=== PATIENT | male | born 1975 | race Caucasian/White ===

== ENCOUNTER → 2019-04-21 05:48 | Outpatient (CLI) | payer OTHER, SELFPAY ==
[2013-09-08 10:16] VITALS: BMI 32.1
[2019-04-21 07:58] LABS: Anion Gap 10 (5-15); BUN 19 mg/dL (7-18); BUN/Creat Ratio 16.4 RATIO (10-20); Calcium,Total 8.9 mg/dL (8.5-10.1); Chloride 103 mmol/L (98-107); Cholesterol 227 mg/dL (200); Creatinine, Serum 1.16 mg/dL (0.70-1.30); EST Glomerular Filtration Rate 73 mL/min (>60); Est Glom Filt Rate - Afr Amer 88 mL/min (>60); Glucose 113 mg/dL (74-106); High Density Lipoprotein 38 mg/dL; Potassium 4.3 mmol/L (3.5-5.1); Sodium Level 141 mmol/L (136-145); Thyroid Stim Hormone (TSH) 1.68 uIU/mL (0.358-3.74); Triglycerides 293 mg/dL; Very Low Density Lipoprotein 59 mg/dL (5-40)
[2019-04-21 08:14] LABS: Vitamin D,25 Hydroxy 15.9 ng/mL (29.95-100.01)
== END ==
PROVIDERS: Family Provider Family Medicine; PCP Family Medicine; Referring Provider Family Medicine; Visit Provider Family Medicine
DX: Z00.00 Encounter for general adult medical examination without abnormal findings (principal); I10 Essential (primary) hypertension; R53.83 Other fatigue
CPT/HCPCS: 36415; 80048; 80061; 82306; 84403; 84443

== ENCOUNTER → 2019-05-19 05:39 | Outpatient (CLI) | payer OTHER, SELFPAY ==
[2013-09-08 10:16] VITALS: BMI 32.1
[2019-05-19 07:38] LABS: Cholesterol 113 mg/dL (200); Glucose 104 mg/dL (74-106); High Density Lipoprotein 32 mg/dL; Triglycerides 142 mg/dL; Very Low Density Lipoprotein 28 mg/dL (5-40)
== END ==
PROVIDERS: Family Provider Family Medicine; PCP Family Medicine; Referring Provider Family Medicine; Visit Provider Family Medicine
DX: I10 Essential (primary) hypertension (principal); E29.1 Testicular hypofunction; R73.9 Hyperglycemia, unspecified
CPT/HCPCS: 36415; 80061; 82947; 84403

== ENCOUNTER → 2019-07-24 16:52 | Outpatient (CLI) | payer OTHER, SELFPAY ==
[2013-09-08 10:16] VITALS: BMI 32.1
== END ==
PROVIDERS: Family Provider Family Medicine; PCP Family Medicine; Referring Provider Family Medicine; Visit Provider Family Medicine
DX: E29.1 Testicular hypofunction (principal)
CPT/HCPCS: 36415; 84403

== ENCOUNTER → 2019-12-09 16:00 | Outpatient (CLI) | payer OTHER, SELFPAY ==
[2013-09-08 10:16] VITALS: BMI 32.1
[2019-12-13 09:36] LABS: Testosterone, Free 2.99 ng/dL (5.00-21.00)
[2019-12-14 11:38] LABS: Testosterone, % Free 2.15 % (1.50-4.20); Testosterone, Total 139 ng/dL (264-916)
== END ==
PROVIDERS: PCP Family Medicine; Referring Provider Family Medicine; Visit Provider Family Medicine
DX: E29.1 Testicular hypofunction (principal)
CPT/HCPCS: 36415; 84402; 84403

== ENCOUNTER → 2020-01-06 16:00 | Outpatient (CLI) | payer OTHER, SELFPAY ==
[2013-09-08 10:16] VITALS: BMI 32.1
== END ==
PROVIDERS: PCP Family Medicine; Referring Provider Family Medicine; Visit Provider Family Medicine
DX: E29.1 Testicular hypofunction (principal)
CPT/HCPCS: 36415; 84403

== ENCOUNTER → 2020-05-11 05:50 | Outpatient (CLI) | payer OTHER, SELFPAY ==
[2013-09-08 10:16] VITALS: BMI 32.1
[2020-05-11 08:27] LABS: Anion Gap 2 (5-15); BUN 28 mg/dL (7-18); BUN/Creat Ratio 25.9 RATIO (10-20); Calcium,Total 8.7 mg/dL (8.5-10.1); Chloride 103 mmol/L (98-107); Cholesterol 90 mg/dL (200); Creatinine, Serum 1.08 mg/dL (0.70-1.30); EST Glomerular Filtration Rate 79 mL/min (>60); Est Glom Filt Rate - Afr Amer 96 mL/min (>60); Glucose 97 mg/dL (74-106); High Density Lipoprotein 36 mg/dL; Potassium 4.7 mmol/L (3.5-5.1); Sodium Level 136 mmol/L (136-145); Triglycerides 63 mg/dL; Very Low Density Lipoprotein 13 mg/dL (5-40)
[2020-05-11 09:40] LABS: Vitamin D,25 Hydroxy 54.5 ng/mL
== END ==
PROVIDERS: PCP Family Medicine; Referring Provider Family Medicine; Visit Provider Family Medicine
DX: I10 Essential (primary) hypertension (principal); E78.5 Hyperlipidemia, unspecified; E55.9 Vitamin D deficiency, unspecified
CPT/HCPCS: 36415; 80048; 80061; 82306

== ENCOUNTER → 2020-05-12 15:48 | Outpatient (CLI) | payer OTHER, SELFPAY ==
[2013-09-08 10:16] VITALS: BMI 32.1
== END ==
PROVIDERS: PCP Family Medicine; Referring Provider Family Medicine; Visit Provider Family Medicine
DX: E29.1 Testicular hypofunction (principal)
CPT/HCPCS: 36415; 84403

== ENCOUNTER → 2020-08-08 16:36 | Outpatient (CLI) | payer OTHER, SELFPAY ==
[2013-09-08 10:16] VITALS: BMI 32.1
[2020-08-08 18:24] LABS: Absolute Neutrophil Count 4.8 X10^3/uL (2.0-7.7); Basophil# 0.01 X10^3/uL; Basophil% 0.1 % (0-1); Eosinophil# 0.03 X10^3/uL; Eosinophils% 0.4 % (0-5); Hematocrit 45.4 % (40-54); Hemoglobin 14.9 g/dL (13.0-16.5); Lymphocyte % 20.4 % (19-41); Mean Corp Hgb Conc 32.8 g/dL (32-36); Mean Corpuscular Hgb 31.7 pg (27.0-32.0); Mean Corpuscular Volume 96.6 fL (80-94); Mean Platelet Vol. 11.2 fl (6.2-12.0); Monocyte# 0.62 X10^3/uL; NRBC Flagged by Analyzer 0 % (0-5); Neutrophil # 4.78 X10^3/uL (2.7-7.7); Neutrophil % 69.8 % (47-70); Platelet Count 204 K/mm3 (150-450); RBC Distribution Width CV 12.1 % (11.6-14.6); RBC Distribution Width SD 43.4 fl (35.1-43.9); White Blood Count 6.9 K/mm3 (4.4-11.0)
[2020-08-08 19:08] LABS: PSA,Total - Annual Screen 0.34 ng/mL (0.00-4.00)
== END ==
PROVIDERS: PCP Family Medicine; Visit Provider Family Medicine
DX: E29.1 Testicular hypofunction (principal)
CPT/HCPCS: 36415; 84153; 84403; 85025; G0103

== ENCOUNTER → 2021-01-23 16:44 | Outpatient (CLI) | payer OTHER, SELFPAY ==
[2013-09-08 10:16] VITALS: BMI 32.1
[2021-01-23 18:01] LABS: Anion Gap 4 (5-15); BUN 19 mg/dL (7-18); BUN/Creat Ratio 15.6 RATIO (10-20); Calcium,Total 9.2 mg/dL (8.5-10.1); Chloride 102 mmol/L (98-107); Cholesterol 91 mg/dL (200); Creatinine, Serum 1.22 mg/dL (0.70-1.30); EST Glomerular Filtration Rate 68 mL/min (>60); Est Glom Filt Rate - Afr Amer 83 mL/min (>60); Glucose 71 mg/dL (74-106); High Density Lipoprotein 50 mg/dL; Potassium 4.1 mmol/L (3.5-5.1); Sodium Level 136 mmol/L (136-145); Triglycerides 41 mg/dL; Very Low Density Lipoprotein 8 mg/dL (5-40)
== END ==
PROVIDERS: PCP Family Medicine; Visit Provider Family Medicine
DX: I10 Essential (primary) hypertension (principal)
CPT/HCPCS: 36415; 80048; 80061

== ENCOUNTER → 2021-02-03 05:38 | Outpatient (CLI) | payer OTHER, SELFPAY ==
[2013-09-08 10:16] VITALS: BMI 32.1
== END ==
PROVIDERS: PCP Family Medicine; Referring Provider Family Medicine; Visit Provider Family Medicine
DX: E29.1 Testicular hypofunction (principal)
CPT/HCPCS: 36415; 84403

== ENCOUNTER → 2021-08-09 16:54 | Outpatient (CLI) | payer OTHER, SELFPAY ==
[2021-08-09 18:25] LABS: Anion Gap 9 (5-15); BUN 19 mg/dL (7-18); BUN/Creat Ratio 15.8 RATIO (10-20); Calcium,Total 9.4 mg/dL (8.5-10.1); Chloride 100 mmol/L (98-107); Cholesterol 80 mg/dL (200); EST Glomerular Filtration Rate 70 mL/min (>60); Est Glom Filt Rate - Afr Amer 84 mL/min (>60); Glucose 81 mg/dL (74-106); High Density Lipoprotein 44 mg/dL; Potassium 4.2 mmol/L (3.5-5.1); Sodium Level 136 mmol/L (136-145); Thyroid Stim Hormone (TSH) 0.94 uIU/mL (0.358-3.74); Triglycerides 63 mg/dL; Very Low Density Lipoprotein 13 mg/dL (5-40)
== END ==
PROVIDERS: PCP Family Medicine; Referring Provider Family Medicine; Visit Provider Family Medicine
DX: E78.5 Hyperlipidemia, unspecified (principal); E29.1 Testicular hypofunction; F41.9 Anxiety disorder, unspecified; I10 Essential (primary) hypertension
CPT/HCPCS: 36415; 80048; 80061; 84403; 84443

== ENCOUNTER 2022-01-10 15:43 | Outpatient (CLI) | payer OTHER, SELFPAY ==
[2022-01-10 18:50] LABS: Cholesterol 166 mg/dL (200); High Density Lipoprotein 44 mg/dL; Triglycerides 86 mg/dL; Very Low Density Lipoprotein 17 mg/dL (5-40)
== END 2022-01-10 23:59 | disposition home or self-care (01) ==
LOC: MFPLAB 15:49
PROVIDERS: PCP Family Medicine; Referring Provider Family Medicine; Visit Provider Family Medicine
DX: E78.5 Hyperlipidemia, unspecified (principal)
CPT/HCPCS: 36415; 80061; 84403

== ENCOUNTER → 2022-02-28 | Outpatient (CLI) | payer OTHER, SELFPAY ==
[2022-02-28 18:35] LABS: Anion Gap 6 (5-15); BUN 23 mg/dL (7-18); BUN/Creat Ratio 20.9 RATIO (10-20); Calcium,Total 8.7 mg/dL (8.5-10.1); Chloride 103 mmol/L (98-107); EST Glomerular Filtration Rate 77 mL/min (>60); Est Glom Filt Rate - Afr Amer 93 mL/min (>60); Glucose 82 mg/dL (74-106); Potassium 4.5 mmol/L (3.5-5.1); Sodium Level 139 mmol/L (136-145)
== END | disposition home or self-care (01) ==
LOC: MFPLAB 15:32
PROVIDERS: PCP Family Medicine; Referring Provider Family Medicine; Visit Provider Family Medicine
DX: I10 Essential (primary) hypertension (principal)
CPT/HCPCS: 36415; 80048

== ENCOUNTER 2022-06-28 06:01 | Day surgery (SDC) | payer OTHER, SELFPAY ==
--- NOTE | 2022-06-18 06:06 | EKG12_ITS ---
Test Reason : PRE OP Blood Pressure : / mmHG Vent. Rate : 052 BPM Atrial Rate : 052 BPM P-R Int : 184 ms QRS Dur : 090 ms QT Int : 414 ms P-R-T Axes : 000 037 036 degrees QTc Int : 385 ms Sinus bradycardia Septal infarct , age undetermined Abnormal ECG Confirmed by TYLER MONSALVE, VENECIA ([id number]), state editor RENEE COSME ([id number]) on 06/18/2022 10:23:53 AM Referred By: Konstantin Alcocer Confirmed By:VENECIA SCOTT MD
[2022-06-18 07:17] LABS: Absolute Lymphocyte Count 1.74 X10^3/uL (0.83-4.51); Absolute Neutrophil Count 2.5 X10^3/uL (2.0-7.7); Basophil# 0.02 X10^3/uL; Basophil% 0.4 % (0-1); Eosinophil# 0.06 X10^3/uL; Eosinophils% 1.2 % (0-5); Hematocrit 45.7 % (40-54); Hemoglobin 15.4 g/dL (13.0-16.5); Lymphocyte # 1.74 X10^3/ul (0.83-4.51); Lymphocyte % 35.9 % (19-41); Mean Corp Hgb Conc 33.7 g/dL (32-36); Mean Corpuscular Hgb 32.4 pg (27.0-32.0); Mean Corpuscular Volume 96.2 fL (80-94); Mean Platelet Vol. 11.3 fl (6.2-12.0); Monocyte# 0.53 X10^3/uL; Monocyte% 10.9 % (0-10); NRBC Flagged by Analyzer 0 % (0-5); Neutrophil # 2.49 X10^3/uL (2.7-7.7); Neutrophil % 51.4 % (47-70); Platelet Count 183 K/mm3 (150-450); RBC Distribution Width CV 12.2 % (11.6-14.6); RBC Distribution Width SD 43.6 fl (35.1-43.9); Red Blood Count 4.75 M/mm3 (4.6-6.2); White Blood Count 4.9 K/mm3 (4.4-11.0)
[2022-06-18 07:54] LABS: Anion Gap 4 (5-15); BUN 35 mg/dL (7-18); Chloride 107 mmol/L (98-107); Creatinine, Serum 0.97 mg/dL (0.70-1.30); EST Glomerular Filtration Rate 88 mL/min (>60); Est Glom Filt Rate - Afr Amer 107 mL/min (>60); Glucose 103 mg/dL (74-106); Sodium Level 138 mmol/L (136-145)
[2022-06-28 06:25] VITALS: BP 132/86; PULSE 61; RESP 16; TEMP 36.6; O2SAT 100; BMI 27.5
--- NOTE | 2022-06-28 06:30 | RAD_ITS ---
STUDY: X-RAY - LEFT HAND REASON FOR EXAM: Male, 47 years old. 1ST CARPOMETACARPAL JOINT ARTHROPLASTY AND TRAPEZIECTOMY TECHNIQUE: 5 intraoperative view(s) of the hand. COMPARISON: None. FINDINGS: 5 limited intraoperative views were performed as the patient has undergone trapeziectomy, and first CMC joint arthroplasty. No intraoperative complications noted. RAD/Hand 2 Views IMPRESSION: No intraoperative complications during first CMC joint arthroplasty and trapeziectomy Electronically Signed: Nick Santoyo MD at 9:22 EDT ,
[2022-06-28] MEDS: Lactated Ringers 1,000 ML 15 ML IV (06:31)
[2022-06-28] MEDS: Cefazolin 2 GM in 0.9% Normal Saline 100 ML IV (07:29)
--- NOTE | 2022-06-28 08:57 | DCINST_ITS ---
Discharge Instructions Follow Up Care Test Results: Test results from this visit will be discussed in further detail at your follow- up appointment, if applicable. Discharge Plan Admission Attending Provider: Konstantin Alcocer Primary Care Provider: Jm Joseph Consulting Providers: Leesa Stanton Instructions Additional Instructions / Restrictions: Follow preprinted instructions from your surgeons office. Discharge Orders/Prescriptions Prescriptions: No Action acetaminophen [Tylenol] 325 mg Tablet 2,000 mg PO BID meloxicam [Mobic] 15 mg Tablet 15 mg PO DAILY lisinopril [Zestril] 10 mg Tablet 10 mg PO DAILY sertraline [Zoloft] 50 mg Tablet 50 mg PO DAILY Fish Oil 1,000 mg Capsule 1 cap PO DAILY Referrals / Follow Up: Konstantin Alcocer DO [Med Staff - Active Staff] - Within 2 Weeks Jm Joseph MD [Primary Care Provider] - Disposition Disposition (needs filled in before D/C Order can be placed): Home, Self Care
[2022-06-28 09:03] VITALS: BP 125/64; BP 132/86; PULSE 72; RESP 18; TEMP 37.1; O2SAT 100
--- NOTE | 2022-06-28 09:13 | PCM.OPRPT ---
Report of Operation Date of Procedure: 06/28/22 Description of Surgical Findings:: Preoperative diagnosis: Left first carpal metacarpal joint osteoarthritis Postoperative diagnosis: Left first carpal metacarpal joint osteoarthritis Procedure: Left thumb trapeziectomy with ligament reconstruction tendon interposition with flexor carpi radialis tendon transfer Surgeon: Konstantin Alcocer DO Waterproofing Supervisor: None Anesthesia: General endotracheal with axillary block Anesthesiologist: Dr. Romero Complications: None apparent Drains: None Estimated blood loss: 25 cc Urinary output: None measured IV fluids: 1300 cc crystalloid Specimens: None Surgical implants: Arthrex 4 mm x 10 mm Bio-Tenodesis screw Surgical indications: This is a 47-year-old male seen in the outpatient setting diagnosed with a left basal joint arthritis of his first CMC. He failed nonoperative management. He had several intra-articular corticosteroid injections with relief, however prolonged relief was weaning most recently with his injections. He had end-stage arthritis on x-ray with dorsal and radial subluxation of the first metacarpal base. He had no hyperextension deformity of his metacarpal phalangeal joint of the thumb. Left first carpometacarpal joint arthroplasty in the form trapeziectomy with ligament reconstruction tendon interposition with flexor carpi radialis tendon transfer was offered. The risks, benefits, alternatives to procedure were reviewed with patient at length in the outpatient setting and he agreed to proceed. Risks included but were not limited to bleeding, infection, loss of life or limb, risk of anesthesia, subsidence of metacarpal base, persistent pain, need for additional surgery, stiffness, loss of hand function including loss of mold press operator strength, neurovascular injury. Patient expressed understanding wish to proceed with surgery. Description of procedure: Patient was seen in preoperative holding area. He was identified by name, medical record number, date of . The operative extremity was marked with a surgical marker. We confirmed informed consent with the patient and all questions were answered to his satisfaction. An axillary block was administered in the PACU by anesthesia staff prior to the procedure. At time of his procedure, patient was brought to the operative suite and positioned supine a standard operating table. All bony prominences were well-padded. General anesthesia was induced and endotracheal tube placed. The left upper extremity was then prepped for surgery by first applying a well-padded pneumatic tourniquet to the left upper arm. The hand table attached to the left side of the table. We spun the bed 90 degrees. The left upper extremities then prepped and draped in normal, sterile orthopedic fashion. 2 g Ancef was administered prior to incision by anesthesia staff. We performed a timeout at this point confirming side, site, and operation to be performed. No concerns voiced and elected to proceed. We first exsanguinated the left upper extremity with a an Esmarch bandage. Tourniquet was inflated to 250 mmHg, remaining up for 50 minutes. I first made my incision overlying the anatomic snuffbox of the right dorsal first CMC. Incision was carried sharply through skin and subcutaneous tissue. Superficial veins were cauterized. Superficial sensory branches from the radial nerve were protected and retracted. We bluntly dissected through the fascia down to the level of the dorsal branch of the radial artery. I retracted this dorsally after cauterizing capsular branches from the radial artery using bipolar cautery. We then identified the dorsal radial capsule of the first CMC. This was split in line with the incision and elevated subperiosteally. The trapezium was then freed from capsular attachment sharply with 15 blade scalpel and subsequently with a McGlamry elevator. We were able to free the trapezium circumferentially and excised the trapezium en bloc. This was examined and had severe degenerative changes on the distal articular surface at the first CMC. The STT joint was examined and appeared unremarkable. The FCR was identified in the wound. The wound was copiously irrigated with normal saline and any loose pieces of cartilage were debrided. I then turned my attention to the flexor carpi radialis and the right mid to distal forearm. A transverse incision approximately 5 mm was made overlying the flexor carpi radialis tendon. Superficial vein was identified and cauterized with bipolar cautery. I was then able to bluntly dissect through the tendon sheath down the level of the tendon. A Ragnell retractor was placed underneath the tendon and the tendon was pulled out of the wound. Sharply transected the tendon at the level of the incision. I then used a right angle hemostat to retrieve the flexor carpi radialis tendon from the distal wound. I split the flexor carpi radialis tendon in line with its fibers to obtain 2 distinct limbs. One limb was tagged in whipstitch fashion with a #2 Ethibond for transfer for our planned tendon transfer. I then prepared our bone tunnel for transfer. A drill pin was utilized to drill dorsal radial to palmar ulnar across the base of the first metacarpal. My entry point was approximately 1 cm from the articular surface. This was directed to the insertion point of the [place] beak ligament. Proper trajectory was confirmed. FCR was protected through the drilling process with a McGlamry elevator. A cannulated drill bit was then placed over top of the drill pin and drilled bicortically. A nitinol wire was used to past the suture tack to the FCR tendon slip through the bone tunnel retrieving out the dorsoradial portion. I then applied a abduction force across the base the first metacarpal and placed it with my index finger in the space of the former trapezium with appropriate tension. My assistant community manager pulled some traction on the thumb. I pulled traction on the slip of the FCR and the Arthrex Bio-Tenodesis screw was then placed to secure the tendon. Minimal amount of shuck and no significant subsidence was noted after the tendon was secured. I then placed a running stitch through both slips of the tendon securing it to the palmar first CMC wrist capsule. Suture was tightened achieving an accordion configuration of the remaining FCR tendon to achieve an interposition graft. We then deflated the tourniquet. Hemostasis was excellent. I closed the capsule in watertight fashion with a 3-0 Ethibond suture. Subcutaneous layers were reapproximated with 3-0 Vicryl in a running subcuticular Monocryl with both the thumb and FCR harvest incisions. Dermabond was used to finally reapproximate skin. Sterile compression dressing was applied. A well-padded thumb spica fiberglass splint was then applied. Patient tolerated procedure well without apparent complication. He was subsequently extubated and transferred to PACU in stable condition. Intraoperative medications: 2 g Ancef administered by anesthesia prior to incision Post Operative Plan: Weightbearing: Nonweightbearing operative extremity Antibiotics: Ancef 2 g x 1 dose preoperatively DVT Prophylaxis: 81 mg aspirin twice daily until follow-up Cotto: None Dressing: Maintain splint, keep it clean dry and intact until follow-up X-Rays: 2 weeks postop in the office out of splint Pain Medication: Narcotic prescription provided as an outpatient Follow-up: 2 weeks post-operatively with me in the office as previously scheduled
[2022-06-28 09:15] VITALS: BP 128/62; BP 132/86; PULSE 76; RESP 16; O2SAT 97
[2022-06-28 09:30] VITALS: BP 123/77; BP 132/86; PULSE 71; RESP 16; O2SAT 97
[2022-06-28 09:36] VITALS: BP 128/78; BP 132/86; PULSE 77; RESP 16; TEMP 37.1; O2SAT 98
[2022-06-28 10:15] VITALS: BP 114/61; BP 132/86; PULSE 69; RESP 16; TEMP 36.6; O2SAT 98
== END 2022-06-28 10:33 | disposition home or self-care (01) ==
LOC: SDC 06:03 → AC 06:03
PROVIDERS: PCP Family Medicine; Referring Provider Student in an Organized Health Care Education/Training Program; Visit Provider Student in an Organized Health Care Education/Training Program
PROC: (CPT 25447; principal; 2022-06-28 07:15)
DX: M18.12 Unilateral primary osteoarthritis of first carpometacarpal joint, left hand (principal); S63.045A Dislocation of carpometacarpal joint of left thumb, initial encounter; X58.XXXA Exposure to other specified factors, initial encounter; I10 Essential (primary) hypertension; E78.00 Pure hypercholesterolemia, unspecified; F32.A Depression, unspecified; F41.9 Anxiety disorder, unspecified; Z87.891 Personal history of nicotine dependence
CPT/HCPCS: 25447; 25310; 01830; 36415; 73120; 76000; 80048; 85025; 93005; J7120; J2405

== ENCOUNTER → 2022-08-06 | Outpatient (CLI) | payer OTHER, SELFPAY ==
[2022-08-06 10:09] LABS: Absolute Neutrophil Count 2.9 X10^3/uL (2.0-7.7); Basophil# 0.03 X10^3/uL; Basophil% 0.6 % (0-1); Eosinophil# 0.04 X10^3/uL; Eosinophils% 0.8 % (0-5); Hematocrit 48.9 % (40-54); Lymphocyte % 28.8 % (19-41); Mean Corp Hgb Conc 32.7 g/dL (32-36); Mean Corpuscular Hgb 31.8 pg (27.0-32.0); Mean Corpuscular Volume 97.2 fL (80-94); Mean Platelet Vol. 10.7 fl (6.2-12.0); Monocyte# 0.48 X10^3/uL; Monocyte% 9.9 % (0-10); NRBC Flagged by Analyzer 0 % (0-5); Neutrophil # 2.89 X10^3/uL (2.7-7.7); Neutrophil % 59.5 % (47-70); Platelet Count 185 K/mm3 (150-450); RBC Distribution Width CV 12.4 % (11.6-14.6); RBC Distribution Width SD 44.4 fl (35.1-43.9); Red Blood Count 5.03 M/mm3 (4.6-6.2); White Blood Count 4.9 K/mm3 (4.4-11.0)
[2022-08-06 11:12] LABS: Anion Gap 5 (5-15); BUN 28 mg/dL (7-18); BUN/Creat Ratio 27.5 RATIO (10-20); Calcium,Total 9.7 mg/dL (8.5-10.1); Chloride 103 mmol/L (98-107); Cholesterol 195 mg/dL (200); Creatinine, Serum 1.02 mg/dL (0.70-1.30); EST Glomerular Filtration Rate 84 mL/min (>60); Est Glom Filt Rate - Afr Amer 101 mL/min (>60); Glucose 104 mg/dL (74-106); High Density Lipoprotein 46 mg/dL; PSA,Total - Annual Screen 0.42 ng/mL (0.00-4.00); Potassium 4.7 mmol/L (3.5-5.1); Sodium Level 137 mmol/L (136-145); Triglycerides 124 mg/dL; Very Low Density Lipoprotein 25 mg/dL (5-40)
== END | disposition home or self-care (01) ==
LOC: MFPLAB 09:12
PROVIDERS: PCP Family Medicine; Visit Provider Family Medicine
DX: Z00.00 Encounter for general adult medical examination without abnormal findings (principal); E29.1 Testicular hypofunction
CPT/HCPCS: 36415; 80048; 80061; 84153; 84403; 85025; G0103

== ENCOUNTER → 2022-11-26 | Outpatient (CLI) | payer OTHER, SELFPAY ==
--- NOTE | 2022-11-26 15:00 | NEURO ---
NCS and/or EMG Patient Report Ordering Doctor: Konstantin Alcocer DATE OF SERVICE: 11/26/22 INDICATION: Left wrist pain with radiation to the hand and arm on occasion beginning in July of 2022. Some associated numbness in the first and second digits of the left hand. Evaluate for peripheral nerve injury. FINDINGS: Nerve conduction studies were performed in the left upper extremity. Some comparison studies were done on the right. The left median motor study recording the abductor pollicis brevis showed a normal amplitude, normal distal latency and normal conduction velocity. The left ulnar motor study recording the abductor digiti minimi showed a normal amplitude, normal distal latency and normal conduction velocity. No conduction block or focal slowing was present across the elbow. The left median sensory response recording digit two showed a normal amplitude, latency and conduction velocity. The left ulnar sensory response recording digit five showed a normal amplitude, latency and conduction velocity. The left radial sensory response recording over the extensor snuff box showed a borderline amplitude, normal latency and normal conduction velocity. The right radial sensory response recording over the extensor snuff box showed a normal amplitude, latency and conduction velocity, and was asymmetric with the left. Needle EMG of the left upper extremity muscles was performed. No active denervation was present in any muscle. The abductor pollicis brevis muscle revealed limited activation, but was otherwise unremarkable. Motor unit morphology, activation and recruitment patterns were normal in the others sampled muscles. IMPRESSION: This is an abnormal study. 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 A neuromuscular ultrasound of the nerve could be considered for further localization and characterization. In addition, there was no electrophysiologic evidence of a concurrent cervical radiculopathy or other entrapment neuropathy in the left upper extremity. Zander Cortes D.O. Multi Select Codes Neurology Neurology Interp Codes: 40197-94 Musc test done w/n test comp (interp) and 09638-32 Nrv cndj test 7-8 studies (interp)
== END | disposition home or self-care (01) ==
LOC: PSN 13:18
PROVIDERS: PCP Family Medicine; Visit Provider Student in an Organized Health Care Education/Training Program
DX: R20.2 Paresthesia of skin (principal)
CPT/HCPCS: 95886; 95910

== ENCOUNTER → 2022-12-28 | Outpatient (CLI) | payer OTHER, SELFPAY ==
[2022-12-28 10:08] LABS: Absolute Lymphocyte Count 1.18 X10^3/uL (0.83-4.51); Absolute Neutrophil Count 6.2 X10^3/uL (2.0-7.7); Basophil# 0.03 X10^3/uL; Basophil% 0.4 % (0-1); Eosinophil# 0.03 X10^3/uL; Eosinophils% 0.4 % (0-5); Hematocrit 49.8 % (40-54); Hemoglobin 16.1 g/dL (13.0-16.5); Lymphocyte # 1.18 X10^3/ul (0.83-4.51); Lymphocyte % 14.3 % (19-41); Mean Corp Hgb Conc 32.3 g/dL (32-36); Mean Corpuscular Hgb 31.9 pg (27.0-32.0); Mean Corpuscular Volume 98.8 fL (80-94); Mean Platelet Vol. 10.3 fl (6.2-12.0); Monocyte# 0.79 X10^3/uL; Monocyte% 9.6 % (0-10); NRBC Flagged by Analyzer 0 % (0-5); Neutrophil # 6.17 X10^3/uL (2.7-7.7); Neutrophil % 74.7 % (47-70); Platelet Count 219 K/mm3 (150-450); RBC Distribution Width CV 12.7 % (11.6-14.6); RBC Distribution Width SD 45.8 fl (35.1-43.9); Red Blood Count 5.04 M/mm3 (4.6-6.2); White Blood Count 8.3 K/mm3 (4.4-11.0)
== END | disposition home or self-care (01) ==
PROVIDERS: PCP Family Medicine; Referring Provider Family Medicine; Visit Provider Family Medicine
DX: E29.1 Testicular hypofunction (principal)
CPT/HCPCS: 36415; 84403; 85025

== ENCOUNTER 2023-01-03 09:00 | Outpatient (RCR) | payer OTHER, SELFPAY ==
--- NOTE | 2022-07-17 08:33 | HP.OTEVAL_ITS ---
Patient's Visit Information KULWANT VALLES is a 47 year old M, referred to Occupational Therapy by Dr. Konstantin Alcocer DO, with a diagnosis of Left first carpal metacarpal joint osteoarthritis. Date of Evaluation: 07/16/22 Occupational Therapist: Thao Williamson, KIKO/Nidia, CHT - Subjective This 47 year old male was seen for OT eval with dx of left CMC osteoarthritic- pt states he has had multiple cortisone injections but they did not last long- Daily and work task became more and more painful limiting his IND with daily tasks. 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 pt arrives today 2 weeks and 4 days s/p from CMC arthroplasty in need of custom orthosis to provide support and protection while structures are healing. - ADLs Dressing: Pants, Socks, Shoes Fasteners: Tie shoes, Buttons, Zippers Eating: Use silverware, Cut food Bathing: Handle washcloth & soap, Wash hair Grooming: Squeeze toothpaste on Comments: pts assisting pt with ADLs and IADls at this time due to inability to use left hand following sx. - Pain left hand 1 Pain Intensity Range: 3 - ROM Wrist: right 65/35 left 20/5 CMC: right 5* left NT MP: right 60 left NT IP: right 60 left 15* Opposition: kapandji opposition scale right 10- left NT ROM Comments: will test left thumb ROM at later date - Strength Market Maker: right 85# left NT Lateral Pinch: right 16# left NT Tripod Pinch: right 16# left NT - Sensation Sensation Comments: denies - Quick DASH-Disab of Arm,Shoulder& Hand Quick DASH Score: 81.6650 - Goals Goal:100% adherence to protocol: Yes Comment: cmc arthroplasty Goal:Daily scar massage when approriate: Yes Goal:ROM equal to unaffected hand: Yes Goal:Market Maker/Pinch strength at least 75% of unaffected hand: Yes Comment: not to initiate strengthening till week 6 s/p Goal:No pain with affected hand use: Yes Goal:Full use of affected hand in daily activities including: Yes Goal:Decrease scar hypersensitivity: Yes Comment: orthosis use Other Goal: pt will demo understanding of IND doffing/donning of orthosis- skin care and precautions and to return to clinic for orthosis adj. as needed by end of 1st session. - Rehabilitation General Assessment: pt arrives today 2 weeks and 4 days s/p from CMC arthroplasty. pt demo with limited ROM and restriction of NWB to left UE. Pt demo need for skilled OT services 1-2x week for 8 weeks to ensure pts return to his PLOF. Today Pt in need of custom orthosis to provide support and protection while structures are healing. Therapist alhaji. and ed. pt on donning/doffing along with short arch wrist ROM ex. and IP ROM. pt demo understanding. Therapy will progress pts ROM as tolerated next 3-4 weeks and initiate dredge lever operator strengthen at week 6 pinch at week 8 unless otherwise specified by Dr. Alcocer. pt instructed to wear orthosis at all times around others- at night- allow to remove and rest on pillow while sitting and initiate short arch wrist ROM and tolerance out of orthosis. pt and family demo understanding and agree to POC. Rehabilitation Potential: Good - Anticipated Interventions A/AAROM/PROM, Strengthening, Scar Care, Triggerpoint Release, Modalities, Orthoses, Joint Protection/Energy Conservation, Ergonomic Education, Fine Motor Coord/Javi, Education re Diagnosis, Home Program - Visit Plan Frequency: 1-2x /Week Duration: 2 Months TEXT: Thank you for the opportunity to evaluate your patient. For Medicare and Medicare HMO plans, please review the plan of care and approve it. It will need to be FAXED BACK to us at [phone] for Medicare purposes. Please let me know if there are questions or concerns regarding this plan of care. Physician Signature: Date:
--- NOTE | 2022-11-29 09:09 | HP.OTREVAL ---
Dr. Konstantin Alcocer, DO, It has been my pleasure to treat KULWANT VALLES over the last 4 visits for Left first carpal metacarpal joint osteoarthritis. Please see the progress note below for an update on the occupational therapy plan of care! Subjective: pt arrives states wrist does feel really stiff in the brace -(therapist rec'd short thumb spica to allow free wrist ROM) Objective/Function: left wrist 55/40. left CMC 0. left MP 35*. left IP 45 Plan Frequency: 1-2x /Week Duration: 3 Weeks Visits in this POC: 12 Plan: will initiates AROM in pain free motion. in one week initiate isometric for shoulder/biceps/triceps. will transition to light PRE/ and thumb stabilization once ROM increases to WFL. pt was ed. on avoiding hyper ext of thumb. (therapist rec'd short thumb spica to allow free wrist ROM). Please advises on what restrictions pt would stay in for his wt. lifting. Goals - Goals Patient Goals: Use Hand/Wrist/Arm Normally Again Goal:100% adherence to protocol: Yes Goal:Daily scar massage when approriate: Yes Goal:ROM equal to unaffected hand: Yes Goal:Tile Inspector/Pinch strength at least 75% of unaffected hand: Yes Goal:No pain with affected hand use: Yes Goal:Full use of affected hand in daily activities including: Yes Goal:Decrease scar hypersensitivity: Yes Other Goal: pt will demo understanding of IND doffing/donning of orthosis- skin care and precautions and to return to clinic for orthosis adj. as needed by end of 1st session. Anticipated Interventions Anticipated Interventions: A/AAROM/PROM, Strengthening, Scar Care, Triggerpoint Release, Modalities, Orthoses, Joint Protection/Energy Conservation, Ergonomic Education, Fine Motor Coord/Javi, Education re Diagnosis, Home Program Please do not hesitate to contact me at [phone] by phone or if you have questions or concerns regarding this new plan of care! Sincerely, Thao Williamson, OTR/L, CHT
== END 2023-01-03 19:00 | disposition home or self-care (01) ==
LOC: OT 09:00
PROVIDERS: PCP Family Medicine; Referring Provider Student in an Organized Health Care Education/Training Program; Visit Provider Student in an Organized Health Care Education/Training Program
DX: M18.12 Unilateral primary osteoarthritis of first carpometacarpal joint, left hand (principal)
CPT/HCPCS: 97035; 97110; 97140; 97166; 97530; 97760

== ENCOUNTER → 2023-01-29 | Outpatient (CLI) | payer OTHER, SELFPAY ==
[2023-01-29 07:00] LABS: Anion Gap 4 (5-15); BUN 31 mg/dL (7-18); BUN/Creat Ratio 26.3 RATIO (10-20); Chloride 105 mmol/L (98-107); Cholesterol 187 mg/dL (200); Creatinine, Serum 1.18 mg/dL (0.70-1.30); EST Glomerular Filtration Rate 70 mL/min (>60); Est Glom Filt Rate - Afr Amer 85 mL/min (>60); Glucose 96 mg/dL (74-106); High Density Lipoprotein 36 mg/dL; Potassium 4.2 mmol/L (3.5-5.1); Sodium Level 138 mmol/L (136-145); Triglycerides 179 mg/dL; Very Low Density Lipoprotein 36 mg/dL (5-40)
== END | disposition home or self-care (01) ==
LOC: LAB 05:51
PROVIDERS: PCP Family Medicine; Referring Provider Family Medicine; Visit Provider Family Medicine
DX: I10 Essential (primary) hypertension (principal)
CPT/HCPCS: 36415; 80048; 80061

== ENCOUNTER → 2023-07-30 | Outpatient (CLI) | payer OTHER, SELFPAY ==
[2023-07-30 10:20] LABS: Absolute Lymphocyte Count 1.22 X10^3/uL (0.83-4.51); Absolute Neutrophil Count 2.7 X10^3/uL (2.0-7.7); Basophil# 0.02 X10^3/uL; Basophil% 0.5 % (0-1); Eosinophil# 0.03 X10^3/uL; Eosinophils% 0.7 % (0-5); Hematocrit 51.8 % (40-54); Hemoglobin 17.3 g/dL (13.0-16.5); Lymphocyte # 1.22 X10^3/ul (0.83-4.51); Lymphocyte % 28.7 % (19-41); Mean Corp Hgb Conc 33.4 g/dL (32-36); Mean Corpuscular Hgb 31.9 pg (27.0-32.0); Mean Corpuscular Volume 95.4 fL (80-94); Mean Platelet Vol. 10.3 fl (6.2-12.0); Monocyte# 0.27 X10^3/uL; Monocyte% 6.4 % (0-10); NRBC Flagged by Analyzer 0 % (0-5); Neutrophil % 63.5 % (47-70); Platelet Count 249 K/mm3 (150-450); RBC Distribution Width CV 11.8 % (11.6-14.6); RBC Distribution Width SD 41.2 fl (35.1-43.9); Red Blood Count 5.43 M/mm3 (4.6-6.2); White Blood Count 4.3 K/mm3 (4.4-11.0)
[2023-07-30 11:04] LABS: Anion Gap 6 (5-15); BUN 39 mg/dL (7-18); BUN/Creat Ratio 37.1 RATIO (10-20); Calcium,Total 9.4 mg/dL (8.5-10.1); Chloride 100 mmol/L (98-107); Cholesterol 251 mg/dL (200); Creatinine, Serum 1.05 mg/dL (0.70-1.30); EST Glomerular Filtration Rate 80 mL/min (>60); Est Glom Filt Rate - Afr Amer 97 mL/min (>60); Glucose 106 mg/dL (74-106); High Density Lipoprotein 51 mg/dL; PSA,Total- Diagnostic 0.47 ng/mL (0.0-4.0); Potassium 4.7 mmol/L (3.5-5.1); Sodium Level 134 mmol/L (136-145); Triglycerides 98 mg/dL; Very Low Density Lipoprotein 20 mg/dL (5-40)
== END | disposition home or self-care (01) ==
LOC: MTLAB 09:00
PROVIDERS: PCP Family Medicine; Referring Provider Family Medicine; Visit Provider Family Medicine
DX: I10 Essential (primary) hypertension (principal); E29.1 Testicular hypofunction
CPT/HCPCS: 36415; 80048; 80061; 84153; 84403; 85025

== ENCOUNTER 2023-12-13 08:00 | Outpatient (RCR) | payer OTHER, SELFPAY ==
--- NOTE | 2023-08-06 08:21 | HP.OTEVAL_ITS ---
Patient's Visit Information Visit Information Visit Information: KULWANT VALLES is a 48 year old M, referred to Occupational Therapy by Dr. Elba Dang MD, with a diagnosis of left 1st primary osteoarthrosis of 1st cmc J. Date of Evaluation: 08/06/23 Occupational Therapist: Thao Williamson, KIKO/Nidia, CHT Subjective Subjective: This 48 year old male was seen for OT eval with dx of unilateral primary osteoarthritis of 1st carpometacarpal joint left hand. Pt arrives 2weeks and 2 days s/p from revision left thumb carpometacarpal interpositional arthroplasty/ adductor release- suspensionplasty left thumb/ interval brace and tendon graft/scar revision with advancement flap closure 1x8cm Neurolysis radial sensory nerve - left forearm. Exploration and partial ligation left radial artery- pt is well know to this facility- pt currently is guarded due to revision- pts is assisting pt with ADLs and IADls pt wants this procedure to go well and return to his Daily occupations. ADLs Comments: pts is assisting with all ADLs and IADls at this time Pain left hand: Current Pain Intensity: 5 Pain Intensity Range: 3 and 6 ROM Wrist: right 70/50 left 20/5 CMC: right 10 left NT MP: right 60 left 10 IP: right 50 left 15 Radial Abduction: right 45 left NT Strength Graphic Art Sales Representative: right 100# Lateral Pinch: right 22# Tripod Pinch: right 24# Sensation Sensation Comments: radial nerve distribution of distal of wrist Quick DASH-Disab of Arm,Shoulder& Hand Quick DASH Score: 85.0000 Goals Goal:100% adherence to protocol: Yes Comment: Dr. Levin CMC arthroplsty guidelines Goal:Daily scar massage when approriate: Yes Goal:ROM equal to unaffected hand: Yes Goal:Graphic Art Sales Representative/Pinch strength at least 75% of unaffected hand: Yes Goal:No pain with affected hand use: Yes Goal:Full use of affected hand in daily activities including work: Yes Goal:Decrease scar hypersensitivity: Yes Rehabilitation General Assessment: Pt arrives 2weeks and 2 days s/p from revision left thumb carpometacarpal interpositional arthroplasty/ adductor release- suspensionplasty left thumb/ interval brace and tendon graft/scar revision with advancement flap closure 1x8cm Neurolysis radial sensory nerve - left forearm. Exploration and partial ligation left radial artery- pt demo with newly healing structures and limited with use of left hand with all ADLS and IADLs. p t demo need for skilled OT services 1-2x week for 8-10 weeks to return pt to guide pt throughout Dr. Levin's CMC arthroplasty guidelines and return pt to a pain free use of left hand with ADls and IADls. Rehabilitation Potential: Good Anticipated Interventions Anticipated Interventions: A/AAROM/PROM, Strengthening, Scar Care, Desensitization, Sensory Retraining, Modalities, Orthoses, Joint Protection/Energy Conservation, Ergonomic Education, Fine Motor Coord/Javi, Education re Diagnosis, Caregiver Training and Home Program Visit Plan Frequency: 1-2x /Week Duration: 2 Months General Plan: s/p week 2: *custom orthosis * scar/edema * full finger motion * full wrist motion * MP and IPJ motion of thumb * Opposition to small finger while supporting CMC to prevent rocking at base of thumb * hand flat S/P week 4 * PROM of wrist if not full * CMC motion *S/P week 5-6 *Pre-alhaji thymb orthosis (comfort cool) daytime use continue custom at night/ heavy activity until 12 wks s/p. *CMC stabilization ex S/p week 6-7 *strengthening discontinue custom brace at [address] Vickers 1. full finger and wrist ROM - flat hand and oppositon to small finger between DIPJ & PIPJ TEXT: Thank you for the opportunity to evaluate your patient. For Medicare and Medicare HMO plans, please review the plan of care and approve it. It will need to be FAXED BACK to us at [phone] for Medicare purposes. Please let me know if there are questions or concerns regarding this plan of care. Physician Signature: Date:
--- NOTE | 2023-08-27 11:29 | OTREVAL_ITS ---
Re-Evaluation Intro: Dr. Elba Dang MD, It has been my pleasure to treat KULWANT VALLES over the last 4 visits for left 1st primary osteoarthrosis of 1st cmc J. Please see the progress note below for an update on the occupational therapy plan of care! Subjective Subjective: pt arrives 6 weeks and 1 days s/pc from revision of left CMC arthroplasty pt arrives states fingers are getting better- feels more tightness in wrist Objective Objective/Function: left wrist 50/45 opposition to LF DIP CMC 10* MPJ 30* IP 40 pt can get palm flat on table top- advised pt to start use comfort cool cmc brace during the day- pt was given thumb CMC/ mp and IP ROM ex- will initiate thumb stabilization next visit pts wrist ROM should cont. to improve getting out of orthosis during the day- Plan Plan Frequency: 1-2x /Week Duration: 2 Months Plan: General Plan: s/p week 2: *custom orthosis * scar/edema * full finger motion * full wrist motion * MP and IPJ motion of thumb * Opposition to small finger while supporting CMC to prevent rocking at base of thumb * hand flat S/P week 4 * PROM of wrist if not full * CMC motion *S/P week 5-6 *Pre-alhaji thymb orthosis (comfort cool) daytime use continue custom at night/heavy activity until 12 wks s/p. *CMC stabilization ex S/p week 6-7 *strengthening discontinue custom brace at [address] Vickers 1. full finger and wrist ROM - flat hand and oppositon to small finger between DIPJ & PIPJ Goals Goals Patient Goals: Use Hand/Wrist/Arm Normally Again and Be More Independent in ADLS Goal:100% adherence to protocol: Yes Goal:Daily scar massage when approriate: Yes Goal:ROM equal to unaffected hand: Yes Goal:Sports Development Officer/Pinch strength at least 75% of unaffected hand: Yes Goal:No pain with affected hand use: Yes Goal:Full use of affected hand in daily activities including work: Yes Goal:Decrease scar hypersensitivity: Yes Anticipated Interventions Anticipated Interventions Anticipated Interventions: A/AAROM/PROM, Strengthening, Scar Care, Desensitization, Sensory Retraining, Modalities, Orthoses, Joint Protection/Energy Conservation, Ergonomic Education, Fine Motor Coord/Javi, Education re Diagnosis, Caregiver Training and Home Program Re-Evaluation Ending Re-evaluation ending: Please do not hesitate to contact me at [phone] by phone or if you have questions or concerns regarding this new plan of care! Sincerely, Thao Williamson, OTR/L, CHT
--- NOTE | 2023-12-17 09:40 | HP.OTDCSUM ---
Discharge Summary D/C Summary: It has been my pleasure to treat KULWANT VALLES under orders from Dr. 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 Please see the following information for a summary of their discharge status. Overall Improvement % Improvement: 75 Objective Objective/Function: right peoplesoft financials consultant strength 105# left 65# increase 45# right lateral pinch 28# left 6# right tripod 30# left 4# right biceps 57# left 40.2# initial 32# right triceps 38.5 increase from 37# left 40.5# 36# initial 23# right shoulder flex 35 increase from 29## left 37# initial 22# pt has demo a increase in BUE UE strength- pts peoplesoft financials consultant strength is maintaining close to 50% less than unaffected hand. Pt feels this will interfere with his IND at his job. Goals Patient Goals: Use Hand/Wrist/Arm Normally Again and Be More Independent in ADLS Goal:100% adherence to protocol: Yes Goal Progress: Goal Met Goal:Daily scar massage when approriate: Yes Goal Progress: Goal Met Goal:ROM equal to unaffected hand: Yes Goal Progress: Goal Met Goal:Capability Lead/Pinch strength at least 75% of unaffected hand: Yes Goal Progress: pt at 45# about 50% peoplesoft financials consultant Goal:No pain with affected hand use: Yes Goal Progress: constant 2-3 Goal:Full use of affected hand in daily activities including work: Yes Goal:Decrease scar hypersensitivity: Yes Plan Plan: pt to have FEC completed . 12/17/23 due to wrist pain at radial styloid/ FCR incretion region therapist advised to the weight in gym as well as reps. D/C Information Discharge Comments: pt was seen following a Left CMC arthroplasty revision. Following his therapy he completed 6 weeks of work conditioning. Pt made gains with his overall UB strength however left peoplesoft financials consultant strength maintained at 35-45# of peoplesoft financials consultant strength about 50% less than unaffected side- pt will have FCE to determine RTW. pt has met OT goals and D/c from OT services. d/c sentence: If there are questions or concerns regarding this patient's occupational therapy, please fell free to call me at [phone]. Thank you for the referral of this patient. Sincerely, Thao Williamson, OTR/L, CHT
== END 2023-12-13 19:00 | disposition home or self-care (01) ==
LOC: OT 08:00
PROVIDERS: PCP Family Medicine
DX: M18.12 Unilateral primary osteoarthritis of first carpometacarpal joint, left hand (principal)
CPT/HCPCS: 97035; 97110; 97140; 97166; 97530; 97545

== ENCOUNTER 2023-12-17 07:17 | Outpatient (RCR) | payer OTHER, SELFPAY ==
--- NOTE | 2023-12-18 06:44 | HP.OTFCE_ITS ---
Task Lift Floor (Occasional 1-33% of Day): 105# Floor (Frequent 34-66% of Day): 52.5# Floor (Constant 67-100% of Day): NA Floor PDL: Heavy Knee (Occasional 1-33% of Day): 105# Knee (Frequent 34-66% of Day): 52# Knee (Constant 67-100% of Day): NA Knee PDL: Heavy Waist (Occasional 1-33% of Day): 85# Waist (Frequent 34-66% of Day): 42.5# Waist (Constant 67-100% of Day): NA Waist PDL: Medium-Heavy Shoulder (Occasional 1-33% of Day): 50# Shoulder (Frequent 34-66% of Day): 25# Shoulder (Constant 67-100% of Day): NA Shoulder PDL: Medium Overhead (Occasional 1-33% of Day): 35# Overhead (Frequent 34-66% of Day): 18# Overhead (Constant 67-100% of Day): NA Overhead PDL: Light-Medium Comments: Physical demand level of Heavy lift from floor- knee- and waist Physical demand level of Medium from shoulder level lift Physical demand level of Light Medium for over head lift Pt has left thumb pain 3-4/10 with lifting. Due to pain with lifting therapist would not rec. constant lift ability Work Activity/Posture Bending: Constant Ability (67-100% of day) Squatting: Constant Ability (67-100% of day) Kneeling: Constant Ability (67-100% of day) Reaching out: Constant Ability (67-100% of day) Reaching up: Constant Ability (67-100% of day) Sitting: Constant Ability (67-100% of day) Walking: Constant Ability (67-100% of day) Standing: Constant Ability (67-100% of day) Reference Reference: Duration Sedentary Sedentary Light Light Light Medium Medium Medium Heavy Very Heavy Heavy Occasional (0-33% of day) Frequent (34-66% of day) Constant (67-100% of day) 10 # Negligible Negligible 15 # 8 # Negligible 20 # 10# Negli. 35 # 18 # 7 # 50 # 25 # 10 # 75 # 100 # >100 # 38 # 50 # >50 # 15 # 20 # >20 # Patient Information Height: 1.78 m Weight:: 97.069 kg Hand Dominance: Right Medical History Medical History Including Restrictions: pt states he was in good health until his right hand started hurting. Pt states pain started 2021 and pt states he was taking crates apart and though he broke his thumb- [facility]. Pain continued and pt Called [facility]. Pt states they continued to do x-ray- and pt has a number of cortisone shots without success. Pt opted to have the rec'd thumb sx in Set. 2022. Pt states he ended up with complication and after pain continued did get second opinion from [facility]. He rec'd revision of the 1st sx failed. Due to increased pain pt had revision of left CMC arthroplasty 06/21/23. PT has undergone therapy services and just finished the rec'd 6 weeks of work conditioning. pt is active in physical health - hikes and weight lifting. Diagnoses Diagnoses: HTN OA Symptoms Symptoms: left director credit risk weakness left pinch weakness numbness around incision site pt wears thumb cmc support- (comfort cool) Pain Pain: pt states at rest pain is 2-3/10. pt states pain varies and will go to 4/10 pt states he does avoid doing some activities due to pain. Work History Work History: Pt states he works for [employer] and has worked there for 18 years. 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 pt states lifting/ push pull weight can vary to moving 200lbs moving eq. up/down steps. pt feels the weakness in left director credit risk and pinch will compromise his ability. Behavioral Behavioral: pt was pleasant and cooperative throughout the session. ADLS ADLS: Pt lives with his and twin sons in home. Pt state he is IND with ADLs and IADLs pt states sons will help with yard work at times. pt states he has returned to IND level with all home mtg and daily tasks. Physical Examination ROM: pt demo ROM WNL noted wrist and thumb measurements take due to recent sx left wrist 50/45 left opposition to LF DIP left CMC 10* left MPJ 30* left IP 40 pt can get palm flat on table top- Strength: strength tested with Fet2 peak force in lbs Biceps right 57# left 40.2# triceps right 38.5# left 40.5# shoulder flex right 35# left 37# hip flexion right 57.6# left 51.5# Quadriceps right 54.8# left 47.7# Hamstrings right 42# left 39.1# Right Surgical Assistant Strength Average: 100.00 Right Surgical Assistant Strength Percentile: 22% Left Surgical Assistant Strength Average: 36.66 Left Surgical Assistant Strength Percentile: <1.4% Right Lateral Pinch Average: 26.00 Right Lateral Pinch Percentile: >90% Left Lateral Pinch Average: 6.00 Left Lateral Pinch Percentile: <10% Right Tripod Pinch Average: 24.00 Right Tripod Pinch Percentile: >90% Left Tripod Pinch Average: 6.00 Left Tripod Pinch Percentile: <10% Comments: pt does report left wrist/thumb pain with resistive testing pts resting heart rate 62 Sensation: monofilament testing for sensation bilateral hand testing at 3.22 diminished light touch Fine Motor: 9 hole peg test right 20.92 sec. 50% left 29.0 sec. <10% Balance: functional balance score 12 Interpretation: A score of 6 or less indicates a significant increased risk for falls. A score between 6-10 inches indicates a moderate risk for falls. Non Material Handling Activities Bending: pt demo the ability to bend forward 3x, 10x and 10x rapidly heart rate 64 pt can bend forward on a constant basis Squatting: pt demo the ability to squat 3/3x, 10/10x and 10x rapidly heart rate 86 following pt can squat on constant ability Kneeling: pt demo the ability to kneel 3/3x, 10/10x and 10 x rapidly heart rate 81 pt can knee on constant ability Reaching out/up: pt demo the ability to reach out/up 3/3x, 10/10x and 10x rapidly heart rate 117 pt can reach up/out on constant ability Walking: pt ambulates well with a good steady reciprocal step pattern pt states he will run 4 miles a day pt can ambulate on constant ability Standing: pt demo the to stand for 15 min no difficulty- pt denies issues with standing ling periods of time. pt can stand on constant ability Sitting: pt demo the ability to sit 60 min with no deficits. pt can sit for constant ability Climbing Stairs: pt demo the ability to ascend and descent 20 steps with a reciprocal with good safe ability. Dynamic Occasional Lifting Capacity Floor Lift: pt demo the ability to lift 105# from floor level with good lifting mechanics pt states pulling at wrist/base of thumb and the weight force on the thumb. Knee Lift: pt demo the ability to lift 105# from floor level with good lifting mechanics pt states pulling at wrist/base of thumb and the weight force on the thumb. Waist Lift: pt demo the ability to lift 85# from floor level with good lifting mechanics pt states pulling at wrist/base of thumb and the weight force on the thumb. Shoulder Lift: pt demo the ability to lift 50# from floor level with good lifting mechanics pt states pulling at wrist/base of thumb and the weight force on the thumb. Overhead Lift: pt demo the ability to lift 35# over head with good ability Carrying: pt demo the ability to carry 55# for 20 feet with increase in left wrist/thumb pain. Comments: sled push/pull Max 120# Following a left CMC arthroplasty revision pt demo a deficit of left director credit risk and pinch strength.
--- NOTE | 2023-12-18 07:02 | HP.OTFCE.D ---
FCE D/C Summary Discharge text: KULWANT VALLES was seen for a one time visit for an FCE on 12/17/23 and is discharged.
== END 2023-12-17 19:00 | disposition home or self-care (01) ==
LOC: OT 07:17
PROVIDERS: PCP Family Medicine; Referring Provider Orthopaedic Surgery; Visit Provider Orthopaedic Surgery
DX: M79.641 Pain in right hand (principal)
CPT/HCPCS: 97750

== ENCOUNTER 2024-05-11 20:17 | Emergency (ER) | payer OTHER, SELFPAY ==
[2024-05-11 20:18] VITALS: BP 168/102; PULSE 89; RESP 18; TEMP 36.3; O2SAT 97; BMI 30.4
--- NOTE | 2024-05-11 22:01 | EDS_ITS ---
HPI History of Present Illness Chief Complaint: Chest Other Informant: patient Onset/Context/Timing Onset: Today Mechanism/Context: Fall Quality of Pain: Sharp Location: Left ribs Worsened by: Coughing, sneezing, moving Relieved by: Nothing Associated Symptoms Associated Symptoms: Negative for Parasthesias, Weakness, Loss of function, Inability to ambulate or Loss of consciousness Narrative Narrative: Patient presents with possible rib fracture that occurred 4 days ago. Patient states he fell and hit his chest on a floor joist. Patient states his pain is over the left upper ribs. Patient describes the pain as sharp. Patient states pain has been constant. Patient states it is worse with coughing, sneezing, and moving. Patient states nothing seems to help with his pain. Patient denies any head injury or loss of consciousness. Patient denies any other injuries. Patient denies any shortness of breath but states that it hurts to take a deep breath. [facility] Medical History Wears glasses Anxiety Arthritis High cholesterol Chewing tobacco use History of stress test Cardiology follow-up encounter Hypertension Home Medications ?Medication ?Instructions ?Recorded ?Last Taken ?Type acetaminophen 325 mg tablet 2,000 mg PO BID 06/12/22 Unknown History (Tylenol) lisinopril 10 mg tablet (Zestril) 10 mg PO DAILY 06/12/22 06/28/22 History meloxicam 15 mg tablet (Mobic) 15 mg PO DAILY 06/12/22 Unknown History omega-3 fatty acids-vitamin E 1 cap PO DAILY 06/12/22 Unknown History 1,000 mg capsule sertraline 50 mg tablet (Zoloft) 50 mg PO DAILY 06/12/22 06/28/22 History amlodipine 5 mg tablet 5 mg PO DAILY 05/11/24 Unknown History buspirone 10 mg tablet 10 mg PO BID 05/11/24 Unknown History nortriptyline 50 mg capsule 75 mg PO QHS 05/11/24 Unknown History rosuvastatin 10 mg tablet 10 mg PO DAILY 05/11/24 Unknown History syringe with needle 1 mL 25 gauge 05/11/24 Unknown History x 1 testosterone cypionate 200 mg/mL 200 mg IM 05/11/24 Unknown History intramuscular oil Allergy/AdvReac Type Severity Reaction Status Date / Time adhesive tape AdvReac Rash Verified 05/11/24 20:21 Surgical History Hx of vasectomy History of surgery on lower extremity Hx of bilateral inguinal hernia repair Hx of skin graft Social History Smoking Status: Former smoker ROS ROS ED Constitutional Constitutional ED: Denies chills or fever(s) Eyes Eyes: Denies blurry vision or change in vision ENT ENT ED: Denies rhinorrhea or sore throat Cardiovascular Cardiovascular: Reports chest pain; Denies palpitations Respiratory/Chest Respiratory/Chest: Denies cough or dyspnea Gastrointestinal Gastrointestinal: Denies nausea or vomiting Genitourinary Genitourinary ED: Denies dysuria or hematuria Musculoskeletal Musculoskeletal: Denies back pain or neck pain Integumentary Denies abscess or rash Neurologic Neurologic: Denies headache(s) or weakness Allergic/Immunologic Allergic/Immunologic ED: Denies mouth swelling or urticaria EXAM Physical Exam Const Vital Signs: 05/11/24 20:18 05/11/24 20:30 Temperature 97.3 F L Temperature Source Temporal Pulse Rate 89 Respiratory Rate 18 Respiratory Effort Normal Blood Pressure 168/102 H Blood Pressure Mean 124 Pulse Ox 97 Oxygen Delivery Method Room Air Positive well nourished and well developed General Appearance ED: well developed and NAD HEENT atraumatic Neck full ROM Chest Wall Chest Narrative: There is tenderness over the left lateral chest wall. There is no bony crepitance or step-off noted. There is no subcutaneous emphysema noted. Resp normal respiratory effort and clear to auscultation bilaterally Cardio regular rhythm Rate: regular rate GI non-tender and non-distended Palpation: soft Neuro oriented x3, CN's II-XII intact bilaterally, moves all extremities, no focal motor deficits and no sensory deficits noted [place] Coma Scale: document GCS findings Spontaneous Obeys Commands Oriented 15 Sensorium / Orientation: alert Motor Exam: strength 5/5 throughout Psych mental status grossly normal MDM MDM MDM Narrative Medical decision making narrative: Differential diagnosis includes rib fracture, pneumothorax, contusion, muscle strain. X-rays of the left ribs will be obtained to assess for fracture or pneumothorax. Radiography Diagnostic Testing: Clinical Impression(s) from Imaging Studies Ribs w/Chest X-Ray 05/11/24 22:05 IMPRESSION: No evidence of displaced rib fracture. Blunting at the left costophrenic angle may represent a small pleural effusion. Electronically Signed: Nadir Figueredo MD at 22:26 EDT , X-rays of the left ribs were obtained. There are 5 views. On my independent interpretation, there is no acute fracture. There is no pneumothorax noted. Radiologist also interpreted the x-rays and agrees. Treatment and Re-Evaluation Narrative: Patient was advised of his findings. Patient was instructed to use ice to the area. Patient was instructed to take Tylenol or ibuprofen as needed for pain. Patient was instructed to take 10-15 deep breaths every hour while awake to prevent atelectasis and pneumonia. Patient was instructed to follow-up with his primary care physician in 5 to 7 days. Patient understood and was agreeable with the plan. All questions were answered. Discharge Plan Triage Chief Complaint: Chest Other ED Provider: Robby Xie Dx/Rx/DC Orders Clinical Impression: Chest wall contusion, Fall Instructions: ED Chest Wall Contusion Prescriptions: No Action acetaminophen [Tylenol] 325 mg Tablet 2,000 mg PO BID meloxicam [Mobic] 15 mg Tablet 15 mg PO DAILY lisinopril [Zestril] 10 mg Tablet 10 mg PO DAILY sertraline [Zoloft] 50 mg Tablet 50 mg PO DAILY Fish Oil 1,000 mg Capsule 1 cap PO DAILY amlodipine 5 mg tablet 5 mg PO DAILY buspirone 10 mg tablet 10 mg PO BID testosterone cypionate 200 mg/mL oil 200 mg IM nortriptyline 50 mg capsule 75 mg PO QHS (DME) syringe with needle 1 mL 25 gauge x 1 syringe MISCELLANEOUS UD rosuvastatin 10 mg tablet 10 mg PO DAILY Primary Care Provider: Jm Joseph Referrals: Jm Joseph MD [Primary Care Provider] - 5-7 Days Print Language: Syriac Disposition Disposition: Home, Self Care
--- NOTE | 2024-05-11 22:05 | RAD_ITS ---
INDICATION: Trauma EXAMINATION/TECHNIQUE: X-RAY - XR Ribs Unilateral W/ PA Chest Min 3 Views COMPARISON: Prior study dated: 11/12/2011 FINDINGS: SOFT TISSUES: No soft tissue swelling or gas. BONES: No displaced fracture. No sclerotic or destructive changes observed. Degenerative changes at the left glenohumeral joint. VISUALIZED LUNGS: Blunting at the left costophrenic angle.. No pneumothorax. RAD/Ribs Uni Min 3V w/PA Chest IMPRESSION: No evidence of displaced rib fracture. Blunting at the left costophrenic angle may represent a small pleural effusion. Electronically Signed: Nadir Figueredo MD at 22:26 EDT ,
[2024-05-11 23:17] VITALS: BP 136/92; PULSE 79; RESP 18; TEMP 36.8; O2SAT 95
== END 2024-05-11 23:18 | disposition home or self-care (01) ==
PROVIDERS: Emergency Provider Emergency Medicine; PCP Family Medicine; Visit Provider Emergency Medicine
DX: S20.212A Contusion of left front wall of thorax, initial encounter (principal); W01.198A Fall on same level from slipping, tripping and stumbling with subsequent striking against other object, initial encounter; I10 Essential (primary) hypertension; E78.00 Pure hypercholesterolemia, unspecified; Z79.899 Other long term (current) drug therapy; Z87.891 Personal history of nicotine dependence
CPT/HCPCS: 71101; 99282

== ENCOUNTER → 2024-06-02 | Outpatient (CLI) | payer OTHER, SELFPAY ==
[2024-06-02 07:31] LABS: Absolute Lymphocyte Count 1.42 X10^3/uL (0.83-4.51); Absolute Neutrophil Count 3.1 X10^3/uL (2.0-7.7); Basophil# 0.04 X10^3/uL; Basophil% 0.8 % (0-1); Eosinophil# 0.07 X10^3/uL; Eosinophils% 1.3 % (0-5); Hematocrit 45.6 % (40-54); Hemoglobin 14.9 g/dL (13.0-16.5); Lymphocyte # 1.42 X10^3/ul (0.83-4.51); Lymphocyte % 27.3 % (19-41); Mean Corp Hgb Conc 32.7 g/dL (32-36); Mean Corpuscular Volume 94.8 fL (80-94); Mean Platelet Vol. 9.9 fl (6.2-12.0); Monocyte# 0.54 X10^3/uL; Monocyte% 10.4 % (0-10); NRBC Flagged by Analyzer 0 % (0-5); Neutrophil % 59.6 % (47-70); Platelet Count 219 K/mm3 (150-450); RBC Distribution Width CV 12.2 % (11.6-14.6); RBC Distribution Width SD 42.5 fl (35.1-43.9); Red Blood Count 4.81 M/mm3 (4.6-6.2); White Blood Count 5.2 K/mm3 (4.4-11.0)
[2024-06-02 07:56] LABS: Anion Gap 3 (5-15); BUN 22 mg/dL (7-18); BUN/Creat Ratio 18.8 RATIO (10-20); Calcium,Total 8.9 mg/dL (8.5-10.1); Chloride 105 mmol/L (98-107); Cholesterol 106 mg/dL (200); Creatinine, Serum 1.17 mg/dL (0.70-1.30); EST Glomerular Filtration Rate 71 mL/min (>60); Est Glom Filt Rate - Afr Amer 86 mL/min (>60); Glucose 106 mg/dL (74-106); High Density Lipoprotein 45 mg/dL; PSA,Total - Annual Screen 0.58 ng/mL (0.00-4.00); Potassium 4.2 mmol/L (3.5-5.1); Sodium Level 138 mmol/L (136-145); Triglycerides 107 mg/dL; Very Low Density Lipoprotein 21 mg/dL (5-40)
[2024-06-05 20:08] LABS: Testosterone, % Free 4.83 % (1.50-4.20); Testosterone, Free 27.24 ng/dL (5.00-21.00); Testosterone, Total 564 ng/dL (264-916)
== END | disposition home or self-care (01) ==
PROVIDERS: PCP Family Medicine; Referring Provider Family Medicine; Visit Provider Family Medicine
DX: I10 Essential (primary) hypertension (principal); E29.1 Testicular hypofunction; Z12.5 Encounter for screening for malignant neoplasm of prostate
CPT/HCPCS: 36415; 80048; 80061; 84153; 84402; 84403; 85025; G0103

== ENCOUNTER → 2024-11-06 | Outpatient (CLI) | payer OTHER, SELFPAY ==
--- NOTE | 2024-11-06 14:05 | RAD_ITS ---
STUDY: X-RAY - CERVICAL SPINE REASON FOR EXAM: Male, 49 years old. Radiculopathy, cervical region TECHNIQUE: 4 view(s) of the cervical spine were obtained. COMPARISON: None FINDINGS: Normal anterior atlantoaxial articulation. Normal odontoid process. Straightening of the cervical lordosis. Normal vertebral bodies. Mild spurring at the mid cervical vertebral endplates. Normal disc space heights. The soft tissue structures are unremarkable. RAD/Cerv Spine 2 or 3 Views IMPRESSION: Mild degenerative changes of the visualized cervical spine. Electronically Signed: Dileep Teran DO at 16:43 EST Reading Location ID and State: [facility] / [place] Tel [phone], Service support ,
--- NOTE | 2024-11-06 14:05 | RAD_ITS ---
INDICATION: KNEE PAIN EXAMINATION/TECHNIQUE: X-RAY - RIGHT XR Knee Complete 4 Views COMPARISON: FINDINGS: SOFT TISSUES: No soft tissue swelling or gas. No radiopaque foreign body. BONES/JOINTS: No acute fracture or subluxation.. Mild spurs at the medial femorotibial compartment. Normal alignment. Preservation of the joint space.. No sclerotic or destructive changes observed. RAD/Knee 4 or More Views IMPRESSION: Mild degenerative changes. Electronically Signed: Dileep Teran DO at 16:40 EST ,
[2024-11-06 15:05] LABS: Amphetamine Urine VISTA NEGATIVE (<1000 ng/mL); Barbiturate Urine VISTA NEGATIVE (< 200 ng/mL); Benzodiazepine Urine VISTA NEGATIVE (< 200 ng/mL); Cocaine Urine VISTA NEGATIVE (< 300 ng/mL); Ecstacy Urine VISTA NEGATIVE (< 500 ng/mL); Methadone Urine VISTA NEGATIVE (< 300 ng/mL); PCP Urine VISTA NEGATIVE (< 25 ng/mL); THC Urine VISTA NEGATIVE (< 50 ng/mL); Vista UDS pH Range 5
== END | disposition home or self-care (01) ==
PROVIDERS: PCP Family Medicine; Referring Provider Anesthesiology Pain Medicine; Visit Provider Anesthesiology Pain Medicine
DX: F11.20 Opioid dependence, uncomplicated (principal); M54.12 Radiculopathy, cervical region; M25.561 Pain in right knee
CPT/HCPCS: 72040; 73564; 80307

== ENCOUNTER → 2024-12-03 | Outpatient (CLI) | payer OTHER, SELFPAY ==
[2024-12-03 18:34] LABS: Absolute Lymphocyte Count 1.56 X10^3/uL (0.83-4.51); Absolute Neutrophil Count 4.2 X10^3/uL (2.0-7.7); Basophil# 0.03 X10^3/uL; Basophil% 0.5 % (0-1); Eosinophil# 0.06 X10^3/uL; Eosinophils% 0.9 % (0-5); Hematocrit 47.3 % (40-54); Hemoglobin 15.1 g/dL (13.0-16.5); Lymphocyte # 1.56 X10^3/ul (0.83-4.51); Lymphocyte % 23.9 % (19-41); Mean Corp Hgb Conc 31.9 g/dL (32-36); Mean Corpuscular Hgb 30.5 pg (27.0-32.0); Mean Corpuscular Volume 95.6 fL (80-94); Mean Platelet Vol. 10.2 fl (6.2-12.0); Monocyte# 0.64 X10^3/uL; Monocyte% 9.8 % (0-10); NRBC Flagged by Analyzer 0 % (0-5); Neutrophil # 4.23 X10^3/uL (2.7-7.7); Neutrophil % 64.6 % (47-70); Platelet Count 260 K/mm3 (150-450); RBC Distribution Width CV 12.5 % (11.6-14.6); RBC Distribution Width SD 43.6 fl (35.1-43.9); Red Blood Count 4.95 M/mm3 (4.6-6.2); White Blood Count 6.5 K/mm3 (4.4-11.0)
[2024-12-03 18:38] LABS: Anion Gap 5 (5-15); BUN 29 mg/dL (7-18); Calcium,Total 9.6 mg/dL (8.5-10.1); Chloride 105 mmol/L (98-107); Cholesterol 128 mg/dL (200); Creatinine, Serum 1.38 mg/dL (0.70-1.30); EST Glomerular Filtration Rate 58 mL/min (>60); Est Glom Filt Rate - Afr Amer 71 mL/min (>60); Glucose 95 mg/dL (74-106); High Density Lipoprotein 47 mg/dL; Potassium 4.3 mmol/L (3.5-5.1); Sodium Level 138 mmol/L (136-145); Triglycerides 146 mg/dL; Very Low Density Lipoprotein 29 mg/dL (5-40)
== END | disposition home or self-care (01) ==
LOC: MFPLAB 16:45
PROVIDERS: PCP Family Medicine; Visit Provider Family Medicine
DX: I10 Essential (primary) hypertension (principal); E29.1 Testicular hypofunction
CPT/HCPCS: 36415; 80048; 80061; 84153; 84403; 85025

== ENCOUNTER → 2025-01-04 | Outpatient (CLI) | payer OTHER, SELFPAY ==
--- NOTE | 2025-01-04 06:30 | RAD_ITS ---
PROCEDURE: ORBITS FOR FOREIGN BODY REASON FOR EXAM: MRI screening examination. TECHNIQUE: 2 view(s) of the orbits. COMPARISON: None. FINDINGS: No evidence of displaced orbit fracture. No radiopaque foreign body. Visualized paranasal sinuses appear clear. RAD/Orbits for Foreign Body IMPRESSION: NEGATIVE ORBIT X-RAYS Reading Location: [id number]
--- NOTE | 2025-01-04 07:45 | MRI_ITS ---
PROCEDURE: SPINE CERVICAL (ROUTINE) REASON FOR EXAM: Neck pain. TECHNIQUE: Cervical spine MRI without intravenous gadolinium-based contrast. COMPARISON: Cervical spine radiograph 11/06/2024 FINDINGS: Vertebrae: Vertebral body heights and disc spaces are within normal limits. Bone marrow signal is unremarkable. Alignment: Straightening of the cervical lordosis. Spinal Cord: Cervical spinal cord is of normal size and signal intensities. Structures at the foramen magnum are unremarkable. C2-3: No significant canal stenosis or neural foraminal narrowing. C3-4: No significant canal stenosis or neural foraminal narrowing. C4-5: Small disc osteophyte complex minimal uncinate hypertrophy with flattening the ventral thecal sac. No significant canal stenosis or neural foraminal narrowing. C5-6: No significant canal stenosis or neural foraminal narrowing. C6-7: No significant canal stenosis or neural foraminal narrowing. C7-T1: No significant canal stenosis or neural foraminal narrowing. MRI/Spine Cervical (Routine) IMPRESSION: No significant degenerative changes of the cervical spine. Reading Location: [id number]
== END | disposition home or self-care (01) ==
PROVIDERS: PCP Family Medicine; Referring Provider Anesthesiology Pain Medicine; Visit Provider Anesthesiology Pain Medicine
DX: Z01.812 Encounter for preprocedural laboratory examination (principal); M54.12 Radiculopathy, cervical region
CPT/HCPCS: 70030; 72141

== ENCOUNTER 2025-03-20 07:23 | Outpatient (CLI) | payer OTHER, SELFPAY ==
[2025-03-20 08:04] LABS: Absolute Lymphocyte Count 1.22 X10^3/uL (0.83-4.51); Absolute Neutrophil Count 2.8 X10^3/uL (2.0-7.7); Basophil# 0.03 X10^3/uL; Basophil% 0.7 % (0-1); Eosinophil# 0.05 X10^3/uL; Eosinophils% 1.1 % (0-5); Hematocrit 45.4 % (40-54); Hemoglobin 15.5 g/dL (13.0-16.5); Lymphocyte # 1.22 X10^3/ul (0.83-4.51); Lymphocyte % 26.8 % (19-41); Mean Corp Hgb Conc 34.1 g/dL (32-36); Mean Corpuscular Hgb 31.8 pg (27.0-32.0); Mean Corpuscular Volume 93.2 fL (80-94); Mean Platelet Vol. 9.9 fl (6.2-12.0); Monocyte# 0.49 X10^3/uL; Monocyte% 10.7 % (0-10); NRBC Flagged by Analyzer 0 % (0-5); Neutrophil # 2.76 X10^3/uL (2.7-7.7); Neutrophil % 60.5 % (47-70); Platelet Count 207 K/mm3 (150-450); RBC Distribution Width CV 12.1 % (11.6-14.6); RBC Distribution Width SD 41.5 fl (35.1-43.9); Red Blood Count 4.87 M/mm3 (4.6-6.2); White Blood Count 4.6 K/mm3 (4.4-11.0)
[2025-03-20 08:38] LABS: ALB/GLOB Ratio 1.8 RATIO (0.9-2.4); AST(SGOT) 28 U/L (<=37); Alanine Aminotransfer ALT/SGPT 27 U/L (<=46); Albumin, Serum 4.4 g/dL (3.5-5.0); Alkaline Phosphatase 62 U/L (40-129); Anion Gap 9 (5-15); BUN 23 mg/dL (4-19); BUN/Creat Ratio 18.8 RATIO (10-20); Calcium,Total 8.8 mg/dL (7.6-11.0); Carbon Dioxide 26.5 mmol/L (21.0-32.0); Chloride 104 mmol/L (98-108); Cholesterol 111 mg/dL (<=200); Creatinine, Serum 1.21 mg/dL (0.70-1.20); EST Glomerular Filtration Rate 74 (>60); Globulin 2.4 g/dL (2.2-4.2); Glucose 117 mg/dL (70-99); High Density Lipoprotein 33 mg/dL; Low Density Lipoprotein Calc. 59 mg/dL; Potassium 4.6 mmol/L (3.3-5.1); Protein, Total 6.8 g/dL (5.9-8.4); Sodium Level 139 mmol/L (133-145); Thyroid Stim Hormone (TSH) 0.989 uIU/mL (0.300-4.200); Total Bilirubin 0.51 mg/dL (0.00-1.30); Triglycerides 93 mg/dL; Very Low Density Lipoprotein 19 mg/dL (5-40); Vitamin B12 903 pg/mL (180-914); Vitamin D,25 Hydroxy 30.4 ng/mL (30-100); cholesterol:hdl ratio screen 3.34
[2025-03-20 08:40] LABS: Microalbumin,Random Urine 32.9 mg/L (NO RANGE EST.)
[2025-03-20 08:59] LABS: Color, Urine Yellow (Yellow); Glucose, Dipstick Normal (Normal); Ketone-Dipstick Negative (Negative); Leukocyte Esterase-Dipstick Negative /ul (Negative); Nitrite-Dipstick Negative (Negative); Occult Blood-Urine 10 /ul (Negative); Protein-Dipstick 30 mg/dl (Negative); Specific Gravity, Urine 1.015 (1.002-1.030); Urine Bilirubin Dipstick Negative (Negative); Urine Clarity Clear (Clear); Urine Urobilinogen Normal (Normal)
[2025-03-26 11:09] LABS: Testosterone, % Free 3.71 % (1.50-4.20); Testosterone, Free 32.35 ng/dL (5.00-21.00); Testosterone, Total 872 ng/dL (264-916)
== END 2025-03-20 23:59 | disposition home or self-care (01) ==
LOC: LAB 07:25
PROVIDERS: PCP Family Medicine; Referring Provider Family Medicine; Visit Provider Family Medicine
DX: I10 Essential (primary) hypertension (principal); E29.1 Testicular hypofunction
CPT/HCPCS: 36415; 80053; 80061; 81002; 82043; 82306; 82607; 84402; 84403; 84439; 84443; 85025

== ENCOUNTER → 2025-04-30 | Outpatient (CLI) | payer OTHER, SELFPAY ==
--- NOTE | 2025-04-30 16:00 | VDLE_ITS ---
Reason For Study Reason For Study: RLE SWELLING RIGHT LEFT GSV is normal. CFV is compressible, spontaneous, phasic, competent, CFV is compressible, spontaneous, phasic, competent and demonstrates normal augmentation. and demonstrates normal augmentation. FV is compressible, spontaneous, phasic, competent and demonstrates normal augmentation. POP V is compressible, spontaneous, phasic, competent and demonstrates normal augmentation. T/P Trunk is compressible. PTV is compressible. RT PerV is compressible. Procedure This is a venous duplex using B-mode, color flow and spectral Doppler. Exam performed in department. A preliminary report was called and/or faxed to Lluvia HAWKINS @ [phone]. VL/Venous Duplex US, Unilateral Interpretation Summary Deep veins of the right lower extremity are patent and compressible segmentally . There is no evidence of right lower extremity deep vein thrombosis. Valvular competence appears intact within the p roximal deep venous system on the right . The right great saphenous vein appears patent and compressible segmentally. The left common femoral vein is patent and compressible . Ordering Physician: Lluvia Villarreal Referring Physician: Jm Joseph Performed By: Suzanne Hardin, RAVI, RVT
== END | disposition home or self-care (01) ==
PROVIDERS: PCP Family Medicine; Referring Provider Nurse Practitioner Family; Visit Provider Nurse Practitioner Family
DX: M79.89 Other specified soft tissue disorders (principal)
CPT/HCPCS: 93971

== ENCOUNTER → 2025-07-10 | Outpatient (CLI) | payer OTHER, SELFPAY ==
--- OUTSIDE RECORDS SUMMARY | 2025-07-10 07:34 | XMS RPT_ITS | CCD ---
Author Organization [facility] Care Team Providers [facility] Social Worker Name Role Phone Unavailable Primary Care Provider Dr. Jm Ahmadi Primary Care Provider Dr. Christ Rivero Attending Provider Dr. Konstantin Alas Referring Provider KONSTANTIN ALAS DO Attending Unavailable KONSTANTIN ALAS DO Primary Care Unavailable KONSTANTIN ALAS DO Admitting Unavailable Dr. Jm Joseph Primary Care Provider Dr. Konstantin Alas Referring Provider Dr. Konstantin Alas Other Provider Dr. Roman Cortes Attending Provider Dr. Jm Joseph Primary Care Provider Dr. Konstantin Alas Referring Provider Dr. Konstantin Alas Other Provider Dr. Roman Cortes Attending Provider Unavailable Primary Care Provider Dr. Jm Ahmadi MD Primary Care Provider Dr. Clemente Zhou MD Attending Provider Dr. Clemente Zhou MD Referring Provider Dr. mJ Joseph MD Attending Provider Wojciech MONSALVE, Dr. Yee Other Provider Dr. Jm Joseph MD Primary Care Provider Dr. Clemente Zhou MD Attending Provider Abelardo MONSALVE, Dr. Cornejo Referring Provider Jake MONSALVE, Dr. Oneal Referring Provider Jake MONSALVE, Dr. Oneal Primary Care Provider Jake MONSALVE, Dr. Oneal Attending Provider Phil BUSINESS EXECUTIVE-C, Lluvia Attending Provider Phil BUSINESS EXECUTIVE-C, Lluvia Referring Provider [phone] Renetta MONSALVE, Dr. Oz Lamas Attending Provider Jm Joseph Attending Unavailable Joseph, Jm Primary Care Unavailable Basali, Clemente Referring Unavailable Basali, Clemente Attending Unavailable Joseph, Jm Primary Care Unavailable Joseph, Jm Referring Unavailable Joseph, Jm Attending Unavailable Joseph, Jm Primary Care Unavailable Phil, Lluvia Referring Unavailable Phil, Lluvia Attending Unavailable Joseph, Jm Primary Care Unavailable Joseph, Jm Referring Unavailable Joseph, Jm Attending Unavailable Joseph, Jm Primary Care Unavailable Samarai, Clemente Attending Unavailable Joselito Jeffrey Unavailable Basali, Clemente Referring Unavailable Joseph, Jm Primary Care Unavailable Joseph, Jm Primary Care Unavailable Robby Xie Attending Unavailable Allergies Allergy Classification Reported Allergen(s) Allergy Type Date of Onset Reaction(s) Facility (2 sources) Adhesive Tape-Silicones Propensity to adverse reactions to drug 5 Rash, Itching [facility] Work Phone: (7 sources) Adhesive Tape; Translations: [adhesive tape] Propensity to adverse reactions 2 Rash [facility] Medications Current Medications Medication Drug Class(es) Dates Sig (Normalized) Sig (Original) acetaminophen 325 mg oral tablet (12 sources) Start: 2 Acetaminophen (Tylenol) 325 mg Tablet Active 2000 mg PO TWICE A DAY June 12, 2022 12:00am acetaminophen 325 mg / oxyCODONE hydrochloride 5 mg oral tablet (2 sources) Opioid Agonist Start: 3 take 1 tablet by mouth every four hours as needed Oxycodone-Acetami nophen Active 1 - 2 TABLET PO EVERY 4 HOURS NEEDED September 08, 2013 1:00pm [id number] 200 actuat albuterol 0.09 mg/actuat metered dose inhaler (2 sources) beta2-Adrenergic Agonist Start: 9 take 2 puff(s) by inhalation every four hours as needed albuterol HFA (PROVENTIL HFA, VENTOLIN HFA) 90 mcg/actuation inhaler Indications: Bronchitis Inhale 2 Puffs as instructed every 4 hours as needed. 1 Inhaler 10/13/2019 Active Comment on above: Inhale 2 Puffs as in structed every 4 hours as needed. amLODIPine 5 mg oral tablet (3 sources) Dihydropyridine Calcium Channel Rosalinda Start: 4 take 1 tablet by mouth once daily Amlodipine 5 mg tablet Active 5 mg PO DAILY May 11, 2024 12:00am atorvastatin 40 mg oral tablet (2 sources) HMG-CoA Reductase Inhibitor Start: 3 take 40 mg by mouth at bedtime Atorvastatin Active 40 MG PO AT BEDTIME September 08, 2013 11:19am busPIRone hydrochloride 10 mg oral tablet (3 sources) Start: 4 take 1 tablet by mouth twice daily Buspirone 10 mg tablet Active 10 mg PO TWICE A DAY May 11, 2024 12:00am hydroCHLOROthiazide 12.5 mg / lisinopril 20 mg oral tablet (2 sources) Thiazide Diuretic, Angiotensin Converting Enzyme Inhibitor Start: 3 take 1 tablet by mouth once daily Lisinopril/Hydroc hlorothiazide (Zestoretic 20/12.5 Tablet) 1 TABLET tablet Active 1 TABLET PO DAILY September 08, 2013 11:19am lisinopril 10 mg oral tablet (14 sources) Angiotensin Converting Enzyme Inhibitor Start: 9 take 1 tablet by mouth once daily Lisinopril (Zestril) 10 mg Tablet Active 10 mg PO DAILY June 12, 2022 12:00am Comment on above: Take 10 mg by mouth once daily. meloxicam 15 mg oral tablet (12 sources) Nonsteroidal Anti-inflammatory Drug Start: 2 take 1 tablet by mouth once daily Meloxicam (Mobic) 15 mg Tablet Active 15 mg PO DAILY June 12, 2022 12:00am naproxen 500 mg oral tablet (2 sources) Nonsteroidal Anti-inflammatory Drug Start: 3 take 500 mg by mouth twice daily as needed Naproxen Active 500 MG PO TWICE DAILY NEEDED September 08, 2013 1:00pm nortriptyline 50 mg oral capsule (3 sources) Tricyclic Antidepressant Start: take 1 capsule by mouth at bedtime Nortriptyline 50 mg capsule Active 75 mg PO AT BEDTIME May 11, 2024 12:00am Bally-3 Fatty Acids-Vitamin E (Fish Oil) 1,000 mg Capsule (12 sources) Start: Bally-3 Fatty Acids-Vitamin E (Fish Oil) 1,000 mg Capsule Active 1 NMA PO DAILY June 12, 2022 12:00am Start: 06-12-2022 take 1 capsule by mo uth once daily Bally-3 Fatty Acids-Vitamin E (Fish Oil) 1,000 mg Capsule Active 1 CAP PO DAILY June 11, 2022 11:00pm Start: 06-12-2022 take 1 capsule by mo uth once daily Bally-3 Fatty Acids-Vitamin E (Fish Oil) 1,000 mg Capsule Active 1 CAP PO DAILY June 12, 2022 12:00am rosuvastatin calcium 10 mg oral tablet (3 sources) HMG-CoA Reductase Inhibitor Start: 05-11-2024 take 1 tablet by mouth once daily Rosuvastatin 10 mg tablet Active 10 mg PO DAILY May 11, 2024 12:00am sertraline 50 mg oral tablet (14 sources) Serotonin Reuptake Inhibitor Start: 11-28-2021 take 1 tablet by mouth once daily Sertraline (Zoloft) 50 mg Tablet Active 50 mg PO DAILY June 12, 2022 12:00am Comment on above: Take 50 mg by mouth once daily. 1 ml testosterone cypionate 200 mg/ml injection (5 sources) Androgen Start: 05-11-2024 Testosterone Cypionate 200 mg/mL oil Active 200 mg IM May 11, 2024 12:00am Start: 10-12-2019 testosterone c ypionate (DEPO-TESTOSTERONE) 200 mg/mL injection 10/12/2019 Active Problems Active Problems Problem Classification Problem Date Documented Da te Episodic/Chronic E Codes: Fall (3 sources) Fall; Translations: [Unspecified fall, initial encounter] 05-19-2024 Episodic Essential hypertension (1 source) Essential (primary) hypertension; Translations: [Essential (primary) hypertension] Onset: 12-21-2024 Chronic Other connective tissue disease (1 source) Other specified soft tissue disorders; Translations: [Other specified soft tissue disorders] Onset: 05-06-2025 Episodic Other non-traumatic joint disorders (1 source) Pain in wrist; Translations: [Pain in left wrist] 12-13-2021 Episodic Substance-related disorders (1 source) Opioid dependence, uncomplicated; Translations: [Opioid dependence, uncomplicated] Onset: 12-01-2024 Chronic Superficial injury; contusion (3 sources) Contusion of chest; Translations: [Contusion of unspecified front wall of thorax, initial encounter] 05-19-2024 Episodic Past or Other Problems Problem Classification Problem Date Documented Da te Episodic/Chronic Nonspecific chest pain (1 source) Other chest pain; Translations: [Other chest pain] Onset: 05-24-2024 Episodic Other connective tissue disease (2 sources) Prepatellar bursitis; Translations: [Prepatellar bursitis, unspecified knee] Onset: 09-14-2005 09-14-2005 Episodic Results Test Name Value Interpretation Reference Range Facility Venous Duplex US, Unilateral on 04-30-2025 Venous Duplex US, Unilateral [facility] [address] [place] [address] Venous Duplex US, Unilateral 04/30/25 1604 MR#: [id number] Acct: [id number] Name: KULWANT VALLES Rep #: [id number] : 1975 50 From: Oz Jackson MD Attending Dr: SHRUTHI Mistry Status: REG CLI Ordering Dr: Lluvia Villarreal NP BUSINESS EXECUTIVE-C Date: 04/30/25 Location: [facility] Sex: M C Admitted: Reason For Study Reason For Study: RLE SWELLING RIGHT LEFT GSV is normal. CFV is compressible, spontaneous, phasic, competent, CFV is compressible, spontaneous, phasic, competent and demonstrates normal augmentation. and demonstrates normal augmentation. FV is compressible, spontaneous, phasic, competent and demonstrates normal augmentation. POP V is compressible, spontaneous, phasic, competent and demonstrates normal augmentation. T/P Trunk is compressible. PTV is compressible. RT PerV is compressible. Procedure This is a venous duplex using B-mode, color flow and spectral Doppler. Exam performed in department. A preliminary report was called and/or faxed to Lluvia MAJANOC @ [phone]. VL/Venous Duplex US, Unilateral Interpretation Summary Deep veins of the right lower extremity are patent and compressible segmentally. There is no evidence of right lower extremity deep vein thrombosis. Valvular competence appears intact within the proximal deep venous system on the right . The right great saphenous vein appears patent and compressible segmentally. The left common femoral vein is patent and compressible . Ordering Physician: Lluvia Villarreal Referring Physician: Jm Joseph Performed By: Suzanne Hardin, RAVI, RVT 04/30/251922 Date Oz Jackson MD CC: BUSINESS EXECUTIVE-C Lluvia Villarreal; Dr. Jm Joseph MD Date Dictated: 04/30/251603 Date Transcribed: 04/30/251922 Frame Runner: Signed Normal [facility] Venous duplex ultrasound rep ortOrdered By: Oz Jackson on 04-30-2025 US Vein [facility] [address] [place] [address] Venous Duplex US, Unilateral 04/30/25 160 MR#: [id number] Acct: [id number] Name: KULWANT VALLES Rep #:[id number] : 1975 50 From: Oz Jackson MD Attending Dr: SHRUTHI Mistry Sta tus: REG CLI Ordering Dr: Lluvia Villarreal NP Date: 04/30/25 Location: [facility] Sex: M C Admitted: Reason For Study Reason For Study: RLE SWELLING RIGHT LEFT GSV is normal. CFV is compressible, spontaneous, phasic, competent, CFV is compressible, spontaneous, phasic, competent and demonstrates normal augmentation. and demonstrates normal augmentation. FV is compressible, spontaneous, phasic, competent and demonstrates normal augmentation. POP V is compressible, spontaneous, phasic, competent and demonstrates normal augmentation. T/P Trunk is compressible. PTV is compressible. RT PerV is compressible. Procedure This is a venous duplex using B-mode, color flow and spectral Doppler. Exam performed in department. A preliminary report was called and/or faxed to Lluvia HAWKINS @ [phone]. VL/Venous Duplex US, Unilateral Interpretation Summary Deep veins of the right lower extremity are patent and compressible segmentally.There is no evidence of right lower extremity deep vein thrombosis. Valvular competence appears intact within the proximal deep venous system on the right . The right great saphenous vein appears patent and compressible segmentally. The left common femoral vein is patent and compressible . Ordering Physician: Lluvia Villarreal Referring Physician: Jm Joseph Performed By: Suzanne Hardin, RDCS, RVT 04/30/251922 Date _ Oz Jackson MD CC: SHRUTHI Villarreal; Dr. Jm Joseph MD ~ Date Dictated: 04/30/25 1604 Date Transcribed: 04/30/251922 Frame Runner: Signed [facility] Work Phone: Testosterone, Total / Freeon 03-26-2025 TESTOSTER,FREE 32.35 ng/dL Abnormal 5.00-21.00 [facility] Comment on above: Order Comment: N Performed By: #### L 3100.5310, L501.9520, L503.0106, L400.2011, L500.4050, L500.4100, L502.0500, L100.0100, L506.0400, L506.1001 #### [facility] [address] [place], [address] TESTOSTER,TOTAL 872 ng/dL Normal 264-916 [facility] Comment on above: Order Comment: N Result Comment: Adul t male reference interval is based on a population of healthy nonobese males (BMI <30) between 19 and 39 years old. Jono et.al. JCEM 2017,102;1995-2624. PMID: 25954804. Performed By: #### L 3100.5310, L501.9520, L503.0106, L400.2011, L500.4050, L500.4100, L502.0500, L100.0100, L506.0400, L506.1001 #### [facility] [address] [place], [place], [id number] (962) TESTOSTERONE,%F 3.71 Normal 1.50-4.20 [facility] Comment on above: Order Comment: N Result Comment: Perf ormed at: [facility] [address] [id number] Assistant Winemaker: Jens Guardado PhD, Phone: [phone] Performed at: [facility] [id number] Assistant Winemaker: Mookie Camargo MD, Phone: [phone] Performed By: #### L 3100.5310, L501.9520, L503.0106, L400.2011, L500.4050, L500.4100, L502.0500, L100.0100, L506.0400, L506.1001 #### [facility] [address] [place], [place], [address] (002) Absolute lymphocyte countOrd ered By: Jm Joseph on 03-20-2025 Lymphocytes Auto (Unsp spec) [#/Vol] 1.22 10*3/uL 0.83-4.51 [facility] Absolute neutrophil countOrd ered By: Jm Joseph on 03-20-2025 Neutrophils (Bld) [#/Vol] 2.8 10*3/uL 2.0-7.7 [facility] Anion gap in Serum or Plasma Ordered By: Jm Joseph on 03-20-2025 Anion gap [Moles/Vol] 9 mmol/L 5- [facility] Automated lymphocyte count a s percentage of total leukocytesOrdered By: Jm Joseph on 03-20-2025 Lymphocytes/100 WBC Auto (Unsp spec) 26.8 % 19- [facility] BUN/creatinine ratioOrdered By: Jm Joseph on 03-20-2025 Urea nitrogen/Creatinine [Mass ratio] 18.8 mg/mg 10- [facility] Basophil percentageOrdered B y: Jm Joseph on 03-20-2025 Basophils/100 WBC (Bld) 0.7 % 0-[address] [facility] Bilirubin Test strip Ql (U)O rdered By: Jm Joseph on 03-20-2025 Bilirubin Ql (U) Negative Negative [facility] Bilirubin, totalOrdered By: Jm Joseph on 03-20-2025 Bilirubin [Mass/Vol] 0.51 mg/dL 0.00-1.30 [facility] CBC W/Diff, Automatedon 03-04 Absolute Lymph 1.22 X10 3/uL Normal 0.83-4.51 [facility] Comment on above: Performed By: #### L 3100.5310, L501.9520, L503.0106, L400.2010, L500.4050, L500.4100, L502.0500, L100.0100, L506.0400, L506.1001 #### [facility] [employer] [place], [address] Absolute Neut 2.8 X10 3/uL Normal 2.0-7.7 [facility] Comment on above: Performed By: #### L 3100.5310, L501.9520, L503.0106, L400, L500.4050, L500.4100, L502.0500, L100.0100, L506.0400, L506.1001 #### [facility] [address] [place], [address] ( Basophils/100 WBC (Bld) 0.7 % Normal 0-[address] [facility] Comment on above: Performed By: #### L 3100.5310, L501.9520, L503.0106, L400.2010, L500.4050, L500.4100, L502.0500, L100.0100, L506.0400, L506.1001 #### [facility] [address] [place], [address] (124) Eosinophils/100 WBC (Bld) 1.1 % Normal 0-5 [facility] Comment on above: Performed By: #### L 3100.5310, L501.9520, L503.0106, L400.2010, L500.4050, L500.4100, L502.0500, L100.0100, L506.0400, L506.1001 #### [facility] [address] [place], [address] (747) Erythrocyte distribution width (RBC) [Ratio] 12.1 % Normal 11.6-14.6 [facility] Comment on above: Performed By: #### L 3100.5310, L501.9520, L503.0106, L400.2010, L500.4050, L500.4100, L502.0500, L100.0100, L506.0400, L506.1001 #### [facility] [address] [place], [address] (815) Hematocrit (Bld) [Volume fraction] 45.4 % Normal 40-54 [facility] Comment on above: Performed By: #### L 3100.5310, L501.9520, L503.0106, L400.2010, L500.4050, L500.4100, L502.0500, L100.0100, L506.0400, L506.1001 #### [facility] [address] [place], [address] Hemoglobin (Bld) [Mass/Vol] 15.5 g/dL Normal 13.0-16. 5 [facility] Comment on above: Performed By: #### L 3100.5310, L501.9520, L503.0106, L400.2011, L500.4050, L500.4100, L502.0500, L100.0100, L506.0400, L506.1001 #### [facility] [address] [place], [address] IG% 0.200 Normal 0.0-0.9 [facility] Comment on above: Result Comment: IG% - Immature Granulocytes (promyelocytes, myelocytes and metamyelocytes) > 1% indicates that a LEFT SHIFT is Present. Performed By: #### L 3100.5310, L501.9520, L503.0106, L400.2011, L500.4050, L500.4100, L502.0500, L100.0100, L506.0400, L506.1001 #### [facility] [address] [place], [address] Lymphocytes/100 WBC (Bld) 26.8 % Normal 19-41 [facility] Comment on above: Performed By: #### L 3100.5310, L501.9520, L503.0106, L400.2010, L500.4050, L500.4100, L502.0500, L100.0100, L506.0400, L506.1001 #### [facility] [address] [place], [address] MCH (RBC) [Entitic mass] 31.8 pg Normal 27.0-32.0 [facility] Comment on above: Performed By: #### L 3100.5310, L501.9520, L503.0106, L400.2011, L500.4050, L500.4100, L502.0500, L100.0100, L506.0400, L506.1001 #### [facility] [address] [place], [address] MCHC (RBC) [Mass/Vol] 34.1 g/dL Normal 32-36 [facility] Comment on above: Performed By: #### L 3100.5310, L501.9520, L503.0106, L400.2011, L500.4050, L500.4100, L502.0500, L100.0100, L506.0400, L506.1001 #### [facility] [address] [place], [address] MCV (RBC) [Entitic vol] 93.2 fL Normal 80-[address] [facility] Comment on above: Performed By: #### L 3100.5310, L501.9520, L503.0106, L400.2010, L500.4050, L500.4100, L502.0500, L100.0100, L506.0400, L506.1001 #### [facility] [address] [place], [address] Monocytes/100 WBC (Bld) 10.7 % High 0-[address] [facility] Comment on above: Performed By: #### L 3100.5310, L501.9520, L503.0106, L400.2010, L500.4050, L500.4100, L502.0500, L100.0100, L506.0400, L506.1001 #### [facility] [address] [place], [address] Neutrophils/100 WBC (Bld) 60.5 % Normal 47-70 [facility] Comment on above: Performed By: #### L 3100.5310, L501.9520, L503.0106, L400.2010, L500.4050, L500.4100, L502.0500, L100.0100, L506.0400, L506.1001 #### [facility] [address] [place], [address] Nucleated RBC (Bld) [#/Vol] 0 10*3/uL Normal 0-5 [facility] Comment on above: Performed By: #### L 3100.5310, L501.9520, L503.0106, L400.2011, L500.4050, L500.4100, L502.0500, L100.0100, L506.0400, L506.1001 #### [facility] [address] [place], [address] Platelet mean volume (Bld) [Entitic vol] 9.9 fL Normal 6.2-12.0 [facility] Comment on above: Performed By: #### L 3100.5310, L501.9520, L503.0106, L400.2010, L500.4050, L500.4100, L502.0500, L100.0100, L506.0400, L506.1001 #### [facility] [address] [place], [address] Platelets (Bld) [#/Vol] 207 10*3/uL Normal 150-450 [facility] Comment on above: Performed By: #### L 3100.5310, L501.9520, L503.0106, L400.2010, L500.4050, L500.4100, L502.0500, L100.0100, L506.0400, L506.1001 #### [facility] [address] [place], [address] RBC (Bld) [#/Vol] 4.87 10*6/uL Normal 4.6-6.2 [facility] Comment on above: Performed By: #### L 3100.5310, L501.9520, L503.0106, L400.2011, L500.4050, L500.4100, L502.0500, L100.0100, L506.0400, L506.1001 #### [facility] [address] [place], [address] RDW SD 41.5 fl Normal 35.1-43.9 [facility] Comment on above: Performed By: #### L 3100.5310, L501.9520, L503.0106, L400.2011, L500.4050, L500.4100, L502.0500, L100.0100, L506.0400, L506.1001 #### [facility] [address] [place], [address] WBC (Bld) [#/Vol] 4.6 10*3/uL Normal 4.4-11.0 [facility] Comment on above: Performed By: #### L 3100.5310, L501.9520, L503.0106, L400.2011, L500.4050, L500.4100, L502.0500, L100.0100, L506.0400, L506.1001 #### [facility] [address] [place], [place], [id number] Calculated very low density lipoprotein (VLDL) cholesterol measurementOrdered By: Jm Joseph on 03-20-2025 Calculated very low density lipoprotein (VLDL) cholesterol measurement 19 mg/dL 5-40 [facility] Carbon dioxide, total [Moles /volume] in Central venous bloodOrdered By: Jm Joseph on 03-20-2025 CO2 [Moles/Vol] 26.5 mmol/L 21.0-32.0 [facility] Chloride assayOrdered By: Lamin Joseph on 03-20-2025 Chloride [Moles/Vol] 104 mmol/L 98-108 [facility] Comprehensive Metabolic Prof ilon 03-20-2025 Albumin [Mass/Vol] 4.4 g/dL Normal 3.5-5.0 [facility] Comment on above: Performed By: #### L 3100.5310, L501.9520, L503.0106, L400.2011, L500.4050, L500.4100, L502.0500, L100.0100, L506.0400, L506.1001 #### [facility] [address] [place], [address] Albumin/Globulin [Mass ratio] 1.8 {ratio} Normal 0.9-2.4 [facility] Comment on above: Performed By: #### L 3100.5310, L501.9520, L503.0106, L400.2010, L500.4050, L500.4100, L502.0500, L100.0100, L506.0400, L506.1001 #### [facility] [address] [place], [address] ALK PHOS 62 U/L Normal 40-129 [facility] Comment on above: Performed By: #### L 3100.5310, L501.9520, L503.0106, L400.2010, L500.4050, L500.4100, L502.0500, L100.0100, L506.0400, L506.1001 #### [facility] [address] [place], [address] ALT [Catalytic activity/Vol] 27 U/L Normal <=46 [facility] Comment on above: Performed By: #### L 3100.5310, L501.9520, L503.0106, L400.2010, L500.4050, L500.4100, L502.0500, L100.0100, L506.0400, L506.1001 #### [facility] [address] [place], [address] AST [Catalytic activity/Vol] 28 U/L Normal <=37 [facility] Comment on above: Performed By: #### L 3100.5310, L501.9520, L503.0106, L400.2011, L500.4050, L500.4100, L502.0500, L100.0100, L506.0400, L506.1001 #### [facility] [address] [place], [address] Bilirubin [Mass/Vol] 0.51 mg/dL Normal 0.00-1.30 [facility] Comment on above: Performed By: #### L 3100.5310, L501.9520, L503.0106, L400.2011, L500.4050, L500.4100, L502.0500, L100.0100, L506.0400, L506.1001 #### [facility] [facility] [address] [place], [address] BUN/CRE 18.8 RATIO Normal 10-20 [facility] Comment on above: Performed By: #### L 3100.5310, L501.9520, L503.0106, L400.2010, L500.4050, L500.4100, L502.0500, L100.0100, L506.0400, L506.1001 #### [facility] [address] [place], [address] Calcium [Mass/Vol] 8.8 mg/dL Normal 7.6-11.0 [facility] Comment on above: Performed By: #### L 3100.5310, L501.9520, L503.0106, L400.2010, L500.4050, L500.4100, L502.0500, L100.0100, L506.0400, L506.1001 #### [facility] [address] [place], [address] Chloride [Moles/Vol] 104 mmol/L Normal 98-108 [facility] Comment on above: Performed By: #### L 3100.5310, L501.9520, L503.0106, L400.2010, L500.4050, L500.4100, L502.0500, L100.0100, L506.0400, L506.1001 #### [facility] [address] [place], [address] CO2 [Moles/Vol] 26.5 mmol/L Normal 21.0-32.0 [facility] Comment on above: Performed By: #### L 3100.5310, L501.9520, L503.0106, L400.2011, L500.4050, L500.4100, L502.0500, L100.0100, L506.0400, L506.1001 #### [facility] [address] [place], [address] Creatinine [Mass/Vol] 1.21 mg/dL High 0.70-1.20 [facility] Comment on above: Performed By: #### L 3100.5310, L501.9520, L503.0106, L400.2010, L500.4050, L500.4100, L502.0500, L100.0100, L506.0400, L506.1001 #### [facility] [address] [place], [address] GAP 9 Normal 5-15 [facility] Comment on above: Performed By: #### L 3100.5310, L501.9520, L503.0106, L400.2010, L500.4050, L500.4100, L502.0500, L100.0100, L506.0400, L506.1001 #### [facility] [address] [place], [address] GFR/1.73 sq M.predicted among non-blacks MDRD (S/P/Bld) [Vol rate/Area] 74 mL/min/{1.73_m2} Normal >60 [facility] Comment on above: Result Comment: mL/m in/1.73m2 CKD-EPI Creatinine Equation (2020) Performed By: #### L 3100.5310, L501.9520, L503.0106, L400.2010, L500.4050, L500.4100, L502.0500, L100.0100, L506.0400, L506.1001 #### [facility] [address] [place], [address] Globulin (S) [Mass/Vol] 2.4 g/dL Normal 2.2-4.[address] [facility] Comment on above: Performed By: #### L 3100.5310, L501.9520, L503.0106, L400.2010, L500.4050, L500.4100, L502.0500, L100.0100, L506.0400, L506.1001 #### [facility] [address] [place], [address] Glucose [Mass/Vol] 117 mg/dL High 70-99 [facility] Comment on above: Performed By: #### L 3100.5310, L501.9520, L503.0106, L400.2010, L500.4050, L500.4100, L502.0500, L100.0100, L506.0400, L506.1001 #### [facility] [address] [place], [address] Potassium [Moles/Vol] 4.6 mmol/L Normal 3.3-5.1 [facility] Comment on above: Performed By: #### L 3100.5310, L501.9520, L503.0106, L400.2010, L500.4050, L500.4100, L502.0500, L100.0100, L506.0400, L506.1001 #### [facility] [address] [place], [address] Sodium [Moles/Vol] 139 mmol/L Normal 133-145 [facility] Comment on above: Performed By: #### L 3100.5310, L501.9520, L503.0106, L400.2011, L500.4050, L500.4100, L502.0500, L100.0100, L506.0400, L506.1001 #### [facility] [address] [facility] [place], [address] T PROT 6.8 g/dL Normal 5.9-8.4 [facility] Comment on above: Performed By: #### L 3100.5310, L501.9520, L503.0106, L400.2011, L500.4050, L500.4100, L502.0500, L100.0100, L506.0400, L506.1001 #### [facility] [address] [place], [place], [id number] Urea nitrogen [Mass/Vol] 23 mg/dL High 4-19 [facility] Comment on above: Performed By: #### L 3100.5310, L501.9520, L503.0106, L400.2011, L500.4050, L500.4100, L502.0500, L100.0100, L506.0400, L506.1001 #### [facility] [address] [place], [place], [address] Eosinophil percentageOrdered By: Jm Joseph on 03-20-2025 Eosinophils/100 WBC (Bld) 1.1 % 0-5 [facility] Erythrocyte distribution wid th ratioOrdered By: Jm Joseph on 03-20-2025 Erythrocyte distribution width (RBC) [Ratio] 12.1 % 11.6-14.6 [facility] Erythrocyte distribution wid th standard deviationOrdered By: Jm Joseph on 03-20-2025 Erythrocyte distribution width (RBC) [Ratio] 41.5 fl 35.1-43.9 [facility] Free testosterone percentage Ordered By: Jm Joseph on 03-20-2025 Testosterone Free/Testosterone.total [Mass fraction] 3.71 % 1.50-4.20 [facility] Comment on above: Performed at: CB - [facility] [address] [id number] Director: Jens Guardado PhD, Phone: [phone] at: - [facility] [address] [id number] Director: Mookie Camargo MD, Phone: [phone] Glomerular filtration rate ( GFR) estimation/1.73 sq m using serum, plasma, or whole bOrdered By: Jm Joseph on 03-20-2025 GFR/1.73 sq M.predicted among non-blacks MDRD (S/P/Bld) [Vol rate/Area] 74 mL/min/{1.73_m2} >60 [facility] Comment on above: mL/min/1.73m2 CKD-EP I Creatinine Equation (2020) Hematocrit Auto (Bld) [Volum e fraction]Ordered By: Jm Joseph on 03-20-2025 Hematocrit (Bld) [Volume fraction] 45.4 % 40-54 [facility] Hemoglobin measurementOrdere d By: Jm Joseph on 03-20-2025 Hemoglobin (Bld) [Mass/Vol] 15.5 g/dL 13.0-16. 5 [facility] Immature granulocytes/100 WB C Auto (Bld)Ordered By: Jm Joseph on 03-20-2025 Immature granulocytes/100 WBC (Bld) 0.200 % 0.0-0.9 [facility] Comment on above: IG% - Immature Granu locytes (promyelocytes, myelocytes and metamyelocytes) > 1% indicates that a LEFT SHIFT is Present. Ketones Test strip Ql (U)Ord ered By: Jm Joseph on 03-20-2025 Ketones Ql (U) Negative Negative [facility] LDL calc ser/plasOrdered By: Jm Joseph on 03-20-2025 Cholesterol in LDL [Mass/Vol] 59 mg/dL [facility] Comment on above: Esfypqwavn=139-566 m g/dL & Higher Ptcr=965 mg/dL or greater Laboratory - Chemistry and C hemistry - challengeOrdered By: Jm Joseph on 03-20-2025 AST [Catalytic activity/Vol] 28 U/L <38 [facility] Lipid Profileon 03-20-2025 CHOL:HDL 3.34 Normal [facility] Comment on above: Performed By: #### L 3100.5310, L501.9520, L503.0106, L400.2010, L500.4050, L500.4100, L502.0500, L100.0100, L506.0400, L506.1001 #### [facility] [address] [place], [address] Cholesterol [Mass/Vol] 111 mg/dL Normal <=200 [facility] Comment on above: Result Comment: Chol esterol level, Desirable <200 mg/dL Borderline high cholesterol 200-239 mg/dL High cholesterol >=240 mg/dL Recommendations of the NCEP Adult Treatment Panel for the following risk-cutoff thresholds for the [place] population. Performed By: #### L 3100.5310, L501.9520, L503.0106, L4.2010, L500.4050, L500.4100, L502.0500, L100.0100, L506.0400, L506.1001 #### [facility] [address] [place], [address] Cholesterol in HDL [Mass/Vol] 33 mg/dL Low [facility] Comment on above: Result Comment: Shi onal Cholesterol Education Program (NCEP) guidelines: <40 mg/dL: Low HDL-cholesterol (major risk factor for CHD) >= 60 mg/dL: High HDL-cholesterol (negative risk factor for CHD) HDL-cholesterol is affected by a number of factors, e.g. smoking, exercise, hormones, sex and age. Performed By: #### L 3100.5310, L501.9520, L503.0106, L400.2010, L500.4050, L500.4100, L502.0500, L100.0100, L506.0400, L506.1001 #### [facility] [address] [place], [address] Cholesterol in LDL [Mass/Vol] 59 mg/dL Normal [facility] Comment on above: Result Comment: Bord wnjtdr=160-497 mg/dL Higher Obxz=787 mg/dL or greater Performed By: #### L 3100.5310, L501.9520, L503.0106, L400.2011, L500.4050, L500.4100, L502.0500, L100.0100, L506.0400, L506.1001 #### [facility] [address] [place], [place], [address] Cholesterol in VLDL [Mass/Vol] 19 mg/dL Normal 5-40 [facility] Comment on above: Performed By: #### L 3100.5310, L501.9520, L503.0106, L400.2010, L500.4050, L500.4100, L502.0500, L100.0100, L506.0400, L506.1001 #### [facility] [address] [place], [address] Triglyceride [Mass/Vol] 93 mg/dL Normal [facility] Comment on above: Result Comment: The drugs N-Acetylcysteine and Metamizole may falsely depress this assay. Normal range: <150 mg/dL Borderline High: 150-199 mg/dL High: 200-499 mg/dL Very High: >500 mg/dL Performed By: #### L 3100.5310, L501.9520, L503.0106, L400.2010, L500.4050, L500.4100, L502.0500, L100.0100, L506.0400, L506.1001 #### [facility] [address] [place], [address] MCV (mean corpuscular volume ) determinationOrdered By: Jm Joseph on 03-20-2025 MCV (RBC) [Entitic vol] 93.2 fL 80-[address] [facility] Mean corpuscular hemoglobin (MCH) determinationOrdered By: Jm Joseph on 03-20-2025 MCH (RBC) [Entitic mass] 31.8 pg 27.0-32.0 [facility] Mean corpuscular hemoglobin concentration (MCHC) determinationOrdered By: Jm Joseph on 03-20-2025 MCHC (RBC) [Mass/Vol] 34.1 g/dL 32-36 [facility] Mean platelet volume determi nationOrdered By: Jm Joseph on 03-20-2025 Platelet mean volume (Bld) [Entitic vol] 9.9 fL 6.2-12.0 [facility] Microalbumin,Random Urineon 03-20-2025 MICROALBUMIN,UR 32.9 mg/L Normal NO RANGE EST. [facility] Comment on above: Performed By: #### L 3100.5310, L501.9520, L503.0106, L400.2011, L500.4050, L500.4100, L502.0500, L100.0100, L506.0400, L506.1001 #### [facility] [place], [place], [address] Monocyte percentageOrdered B y: Jm Joseph on 03-20-2025 Monocytes/100 WBC (Bld) 10.7 % High 0-[address] [facility] Neutrophil percentageOrdered By: Jm Joseph on 03-20-2025 Neutrophils/100 WBC (Bld) 60.5 % 47-70 [facility] Nitrite Test strip Ql (U)Ord ered By: Jm Joseph on 03-20-2025 Nitrite Ql (U) Negative Negative [facility] Nucleated red blood cell per centageOrdered By: Jm Joseph on 03-20-2025 Nucleated RBC/100 WBC (Bld) [Ratio] 0 % 0-5 [facility] Platelet countOrdered By: Lamin ul Jake on 03-20-2025 Platelets (Bld) [#/Vol] 207 10*3/uL 150-450 [facility] Potassium measurement (mass/ volume)Ordered By: mJ Joseph on 03-20-2025 Potassium (Unsp spec) [Mass/Vol] 4.6 mmol/L 3.3-5.1 [facility] Protein Test strip Ql (U)Ord ered By: Jm Joseph on 03-20-2025 Protein Ql (U) 30 mg/dl High Negative [facility] RBC Auto (Bld) [#/Vol]Ordere d By: Jm Joseph on 03-20-2025 RBC (Bld) [#/Vol] 4.87 10*6/uL 4.6-6.2 [facility] Screening total cholesterol/ high density lipoprotein (HDL) cholesterol ratioOrdered By: Jm Joseph on 03-20-2025 Cholesterol.total/Cholestero l in HDL [Mass ratio] 3.34 {ratio} [facility] Serum creatinine measurement (mass/volume)Ordered By: Jm Joseph on 03-20-2025 Creatinine [Mass/Vol] 1.21 mg/dL High 0.70-1.20 [facility] Serum globulin measurementOr dered By: Jm Joseph on 03-20-2025 Globulin (S) [Mass/Vol] 2.4 g/dL 2.2-4.[address] [facility] Serum glucose measurement (m ass/volume)Ordered By: Jm Joseph on 03-20-2025 Glucose [Mass/Vol] 117 mg/dL High 70-99 [facility] Serum or plasma alanine castillo otransferase (ALT) measurementOrdered By: Jm Joseph on 03-20-2025 ALT [Catalytic activity/Vol] 27 U/L <47 [facility] Serum or plasma albumin rafa urement (mass/volume)Ordered By: Jm Joseph on 03-20-2025 Albumin [Mass/Vol] 4.4 g/dL 3.5-5.0 [facility] Serum or plasma albumin/glob ulin mass ratioOrdered By: Jm Joseph on 03-20-2025 Albumin/Globulin [Mass ratio] 1.8 {ratio} 0.9-2.4 [facility] Serum or plasma alkaline anne-marie sphatase measurementOrdered By: Jm Joseph on 03-20-2025 ALP [Catalytic activity/Vol] 62 U/L 40-129 [facility] Serum or plasma calcium arfa urement (mass/volume)Ordered By: Jm Joseph on 03-20-2025 Calcium [Mass/Vol] 8.8 mg/dL 7.6-11.0 [facility] Serum or plasma cholesterol in HDL measurement (mass/volume)Ordered By: Jm Joseph on 03-20-2025 Cholesterol in HDL [Mass/Vol] 33 mg/dL Low >40 [facility] Comment on above: National Cholesterol Education Program (NCEP) guidelines:<40 mg/dL: Low HDL-cholesterol (major risk factor for CHD)>= 60 mg/dL: High HDL-cholesterol (negative risk factor for CHD)HDL-cholesterol is affected by a number of factors, e.g. smoking, exercise, hormones, sex and age. Serum or plasma cholesterol measurement (mass/volume)Ordered By: Jm Joseph on 03-20-2025 Cholesterol [Mass/Vol] 111 mg/dL <201 [facility] Comment on above: Cholesterol level, D esirable <200 mg/dLBorderline high cholesterol 200-239 mg/dLHigh cholesterol >=240 mg/dLRecommendations of the NCEP Adult Treatment Panel for the following risk-cutoff thresholds for the [place] population. Serum or plasma free testost erone measurement (mass/volume)Ordered By: Jm Joseph on 03-20-2025 Testosterone Free [Mass/Vol] 32.35 ng/dL High 5.00-2 1.00 [facility] Serum or plasma urea nitroge n measurement (mass/volume)Ordered By: Jm Joseph on 03-20-2025 Urea nitrogen [Mass/Vol] 23 mg/dL High 4-19 [facility] Sodium levelOrdered By: Jm Joseph on 03-20-2025 Sodium [Moles/Vol] 139 mmol/L 133-145 [facility] T4 Free Directon 03-20-2025 T4 FREE DIRECT 0.80 ng/dL Normal 0.76-1.46 [facility] Comment on above: Order Comment: N Performed By: #### L 3100.5310, L501.9520, L503.0106, L400.2011, L500.4050, L500.4100, L502.0500, L100.0100, L506.0400, L506.1001 #### [facility] [address] [place], [address] T4 freeOrdered By: Jm dougherty on 03-20-2025 Free T4 [Mass/Vol] 0.80 ng/dL 0.76-1.46 [facility] TSH DL <= 0.005 mIU/L QnOrde red By: Jm Joseph on 03-20-2025 TSH Qn 0.989 uIU/mL 0.300-4.20 0 [facility] Testosterone, totalOrdered B y: Jm Joseph on 03-20-2025 Testosterone [Mass/Vol] 872 ng/dL 264-[address] [facility] Comment on above: Adult male reference interval is based on a population ofhealthy nonobese males (BMI <30) between 19 and 39 yearsold. easton De La Cruz.al. JCEM 2017,102;8203-9332. PMID:[id number]. Thyroid Stim Hormone (TSH)on 03-20-2025 TSH 0.989 uIU/mL Normal 0.300-4.20 0 [facility] Comment on above: Performed By: #### L 3100.5310, L501.9520, L503.0106, L400.2010, L500.4050, L500.4100, L502.0500, L100.0100, L506.0400, L506.1001 #### [facility] [address] [place], [place], [id number] Total proteinOrdered By: Penny Joseph on 03-20-2025 Protein [Mass/Vol] 6.8 g/dL 5.9-8.4 [facility] Triglycerides measurementOrd ered By: Jm Joseph on 03-20-2025 Triglyceride [Mass/Vol] 93 mg/dL <[address] [facility] Comment on above: The drugs N-Acetylcy steine and Metamizole may falsely depress this assay. Normal range: <150 mg/dLBorderline High: 150-199 mg/dLHigh: 200-499 mg/dLVery High: >500 mg/dL Urinalysis, Routine (Dipstic k)on 03-20-2025 BILIRUBIN URINE Negative Normal Negative [facility] Comment on above: Order Comment: Urine , Random Performed By: #### L 3100.5310, L501.9520, L503.0106, L400.2010, L500.4050, L500.4100, L502.0500, L100.0100, L506.0400, L506.1001 #### [facility] [address] [place], [place], [id number] Clarity (U) Clear Normal Clear [facility] Comment on above: Order Comment: Urine , Random Performed By: #### L 3100.5310, L501.9520, L503.0106, L400.2010, L500.4050, L500.4100, L502.0500, L100.0100, L506.0400, L506.1001 #### [facility] [address] [place], [place], [address] Color (U) Yellow Normal Yellow [facility] Comment on above: Order Comment: Urine , Random Performed By: #### L 3100.5310, L501.9520, L503.0106, L4.2010, L500.4050, L500.4100, L502.0500, L100.0100, L506.0400, L506.1001 #### [facility] [address] [place], [place], [id number] GLUCOSE, UR Normal Normal Normal [facility] Comment on above: Order Comment: Urine , Random Performed By: #### L 3100.5310, L501.9520, L503.0106, L400.2010, L500.4050, L500.4100, L502.0500, L100.0100, L506.0400, L506.1001 #### [facility] [address] [place], [place], [id number] KETONE UR Negative Normal Negative [facility] Comment on above: Order Comment: Urine , Random Performed By: #### L 3100.5310, L501.9520, L503.0106, L400.2010, L500.4050, L500.4100, L502.0500, L100.0100, L506.0400, L506.1001 #### [facility] [address] [place], [address] LEUK ESTERASE Negative Normal Negative [facility] Comment on above: Order Comment: Urine , Random Performed By: #### L 3100.5310, L501.9520, L503.0106, L400.2011, L500.4050, L500.4100, L502.0500, L100.0100, L506.0400, L506.1001 #### [facility] [address] [place], [address] Nitrite Ql (U) Negative Normal Negative [facility] Comment on above: Order Comment: Urine , Random Performed By: #### L 3100.5310, L501.9520, L503.0106, L400.2010, L500.4050, L500.4100, L502.0500, L100.0100, L506.0400, L506.1001 #### [facility] [address] [place], [address] OCCULT BLOOD-UR 10 /ul Abnormal Negative [facility] Comment on above: Order Comment: Urine , Random Performed By: #### L 3100.5310, L501.9520, L503.0106, L400.2010, L500.4050, L500.4100, L502.0500, L100.0100, L506.0400, L506.1001 #### [facility] [address] [place], [address] pH UR 6.0 Normal 5.0 - 8.0 [facility] Comment on above: Order Comment: Urine , Random Performed By: #### L 3100.5310, L501.9520, L503.0106, L400.2010, L500.4050, L500.4100, L502.0500, L100.0100, L506.0400, L506.1001 #### [facility] [address] [place], [address] PROT DIPSTX 30 mg/dl Abnormal Negative [facility] Comment on above: Order Comment: Urine , Random Performed By: #### L 3100.5310, L501.9520, L503.0106, L400.2011, L500.4050, L500.4100, L502.0500, L100.0100, L506.0400, L506.1001 #### [facility] [address] [place], [address] SP.GR. DIPSTX 1.015 Normal 1.002-1.03 0 [facility] Comment on above: Order Comment: Urine , Random Performed By: #### L 3100.5310, L501.9520, L503.0106, L400.2010, L500.4050, L500.4100, L502.0500, L100.0100, L506.0400, L506.1001 #### [facility] [address] [place], [place], [id number] UROBILI Normal Normal Normal [facility] Comment on above: Order Comment: Urine , Random Performed By: #### L 3100.5310, L501.9520, L503.0106, L400.2010, L500.4050, L500.4100, L502.0500, L100.0100, L506.0400, L506.1001 #### [facility] [address] [place], [place], [id number] Urine albumin measurement [facility] detection limit of 20 mg/L or less (mass/volume)Ordered By: Jm Joseph on 03-20-2025 Albumin DL <= 20 mg/L (U) [Mass/Vol] 32.9 mg/L NO RANGE EST. [facility] Urine clarityOrdered By: Penny Joseph on 03-20-2025 Clarity (U) Clear Clear [facility] Urine color determinationOrd ered By: Jm Joseph on 03-20-2025 Color (U) Yellow Yellow [facility] Urine glucose detectionOrder ed By: Jm Joseph on 03-20-2025 Glucose Ql (U) Normal mg/dl Normal [facility] Urine leukocyte esterase det ection by dipstickOrdered By: Jm Joseph on 03-20-2025 Leukocyte esterase Test strip Ql (U) Negative Negative [facility] Urine pHOrdered By: Jm jensen on 03-20-2025 pH (U) 6.0 [pH] 5.0 - 8.0 [facility] Urine specific gravity measu rementOrdered By: Jm Joseph on 03-20-2025 Specific gravity (U) [Rel density] 1.015 1.002-1.03 0 [facility] Urine urobilinogen measureme ntOrdered By: Jm Joseph on 03-20-2025 Urobilinogen Ql (U) Normal mg/dl Normal [facility] Vitamin B12on 03-20-2025 Cobalamin (Vitamin B12) [Mass/Vol] 903 pg/mL Normal 180-914 [facility] Comment on above: Performed By: #### L 3100.5310, L501.9520, L503.0106, L400.2010, L500.4050, L500.4100, L502.0500, L100.0100, L506.0400, L506.1001 #### [facility] Laboratory [address] [place], [place], [address] Vitamin B12 ser/plasOrdered By: Jm Joseph on 03-20-2025 Cobalamin (Vitamin B12) [Mass/Vol] 903 pg/mL 180-914 [facility] Vitamin D,25 Hydroxyon 03-20 Vitamin D 25-OH 30.4 ng/mL Normal 30-100 [facility] Comment on above: Result Comment: Renata min D Status Deficiency: <20 ng/mL (50nmol/L) Insufficiency: 20-30 ng/mL (50-75 nmol/L) Sufficiency: 30-100 ng/mL (75-250 nmol/L) Toxicity: >100 ng/mL (>250 nmol/L) Performed By: #### L 3100.5310, L501.9520, L503.0106, L400.2010, L500.4050, L500.4100, L502.0500, L100.0100, L506.0400, L506.1001 #### [facility] [address] [place], [place], [address] White blood cell (WBC) count Ordered By: Jm Joseph on 03-20-2025 WBC (Bld) [#/Vol] 4.6 10*3/uL 4.4-11.0 [facility] Magnetic resonance imaging r eportOrdered By: Misael Howard on 01-07-2025 Study report [facility] Imaging Services [address] [place] [address] Spine Cervical (Routine) MR#: [id number] Acct: [id number] Name: KULWANT VALLES Rep #: [id number] : 1975 M 49 From: Deneen Howard MD PCP: Dr. Jm Joseph MD Status: [facility] Study:Spine Cervical (Routine) Date of Exam: 01/04/25 Exam# [id number] Ordering Dr: Adams Zhou MD PROCEDURE: SPINE CERVICAL (ROUTINE) REASON FOR EXAM: Neck pain. TECHNIQUE: Cervical spine MRI without intravenous gadolinium-based contrast. COMPARISON: Cervical spine radiograph 11/06/2024 FINDINGS: Vertebrae: Vertebral body heights and disc spaces are within normal limits. Bone marrow signal is unremarkable. Alignment: Straightening of the cervical lordosis. Spinal Cord: Cervical spinal cord is of normal size and signal intensities. Structures at the foramen magnum are unremarkable. C2-3: No significant canal stenosis or neural foraminal narrowing. C3-4: No significant canal stenosis or neural foraminal narrowing. C4-5: Small disc osteophyte complex minimal uncinate hypertrophy with flatteningthe ventral thecal sac. No significant canal stenosis or neural foraminal narrowing. C5-6: No significant canal stenosis or neural foraminal narrowing. C6-7: No significant canal stenosis or neural foraminal narrowing. C7-T1: No significant canal stenosis or neural foraminal narrowing. MRI/Spine Cervical (Routine) IMPRESSION: No significant degenerative changes of the cervical spine. [facility] CC: Dr. Clemente Zhou MD; Dr. Jm Joseph MD ~ Frame Runner: Signed [facility] Orbits for Foreign Bodyon Orbits for Foreign Body [facility] Imaging Services [address] [place] [address] Orbits for Foreign Body MR#: [id number] Acct: [id number] Name: KULWANT VALLES Rep #: [id number] : 1975 M 49 From: Isaac rico MD PCP: Dr. Jm Joseph MD Status: REG CLI Study: Orbits for Foreign Body Date of Exam: 01/04/25 Exam# [id number] Ordering Dr: Clemente Zhou MD PROCEDURE: ORBITS FOR FOREIGN BODY REASON FOR EXAM: MRI screening examination. TECHNIQUE: 2 view(s) of the orbits. COMPARISON: None. FINDINGS: No evidence of displaced orbit fracture. No radiopaque foreign body. Visualized paranasal sinuses appear clear. RAD/Orbits for Foreign Body IMPRESSION: NEGATIVE ORBIT X-RAYS Reading Location: [id number] CC: Dr. Clemente Zhou MD; Dr. Jm Joseph MD Frame Runner: Signed Normal [facility] Spine Cervical (Routine)on 0 01-04-2025 Spine Cervical (Routine) [facility] Imaging Services [address] [place] [address] Spine Cervical (Routine) MR#: [id number] Acct: [id number] Name: REENAKULWANT Nidia Rep #: [id number] : 1975 M 49 From: Misael carranza MD PCP: Dr. Jm Joseph MD Status: REG CLI Study: Spine Cervical (Routine) Date of Exam: Exam# [id number] Ordering Dr: Clemente Zhou MD PROCEDURE: SPINE CERVICAL (ROUTINE) REASON FOR EXAM: Neck pain. TECHNIQUE: Cervical spine MRI without intravenous gadolinium-based contrast. COMPARISON: Cervical spine radiograph 11/06/2024 FINDINGS: Vertebrae: Vertebral body heights and disc spaces are within normal limits. Bone marrow signal is unremarkable. Alignment: Straightening of the cervical lordosis. Spinal Cord: Cervical spinal cord is of normal size and signal intensities. Structures at the foramen magnum are unremarkable. C2-3: No significant canal stenosis or neural foraminal narrowing. C3-4: No significant canal stenosis or neural foraminal narrowing. C4-5: Small disc osteophyte complex minimal uncinate hypertrophy with flattening the ventral thecal sac. No significant canal stenosis or neural foraminal narrowing. C5-6: No significant canal stenosis or neural foraminal narrowing. C6-7: No significant canal stenosis or neural foraminal narrowing. C7-T1: No significant canal stenosis or neural foraminal narrowing. MRI/Spine Cervical (Routine) IMPRESSION: No significant degenerative changes of the cervical spine. Reading [facility] CC: Dr. Clemente Zhou MD; Dr. Jm Joseph MD Frame Runner: Signed Normal [facility] Absolute lymphocyte countOrd ered By: Jm Joseph on 12-03-2024 Lymphocytes Auto (Unsp spec) [#/Vol] 1.56 10*3/uL 0.83-4.51 [facility] Absolute neutrophil countOrd ered By: Jm Joseph on 12-03-2024 Neutrophils (Bld) [#/Vol] 4.2 10*3/uL 2.0-7.7 [facility] Automated lymphocyte count a s percentage of total leukocytesOrdered By: Jm Joseph on 12-03-2024 Lymphocytes/100 WBC Auto (Unsp spec) 23.9 % 19-41 [facility] Basic Metabolic Profile (BMP )on 12-03-2024 BUN/CRE 21.0 RATIO High 10-20 [facility] Comment on above: Performed By: #### L 3100.5310, L501.9520, L503.0106, L400.2011, L500.4050, L500.4100, L502.0500, L100.0100, L506.0400, L506.1001 #### [facility] Laboratory [address] [place], [address] CA,Total 9.6 mg/dL Normal 8.5-10.1 [facility] Comment on above: Performed By: #### L 3100.5310, L501.9520, L503.0106, L400.2010, L500.4050, L500.4100, L502.0500, L100.0100, L506.0400, L506.1001 #### [facility] Laboratory [address] [place], [address] Chloride [Moles/Vol] 105 mmol/L Normal 98-107 [facility] Comment on above: Performed By: #### L 3100.5310, L501.9520, L503.0106, L400.2010, L500.4050, L500.4100, L502.0500, L100.0100, L506.0400, L506.1001 #### [facility] Laboratory [address] [place], [address] CO2 [Moles/Vol] 28.0 mmol/L Normal 21.0-32.0 [facility] Comment on above: Performed By: #### L 3100.5310, L501.9520, L503.0106, L400.2010, L500.4050, L500.4100, L502.0500, L100.0100, L506.0400, L506.1001 #### [facility] Laboratory [address] [place], [address] Creatinine [Mass/Vol] 1.38 mg/dL High 0.70-1.30 [facility] Comment on above: Result Comment: The validity of the calculated GFR GFRAA in patients over 70 years has not been determined. Clinical correlation is essential. Performed By: #### L 3100.5310, L501.9520, L503.0106, L400.2010, L500.4050, L500.4100, L502.0500, L100.0100, L506.0400, L506.1001 #### [facility] Laboratory [address] [place], [address] EST GFR - AA 71 mL/min Normal >60 [facility] Comment on above: Result Comment: Afri can [place] GFR Calc Performed By: #### L 3100.5310, L501.9520, L503.0106, L400.2011, L500.4050, L500.4100, L502.0500, L100.0100, L506.0400, L506.1001 #### [facility] Laboratory [address] [place], [address] GAP 5 Normal 5-15 [facility] Comment on above: Performed By: #### L 3100.5310, L501.9520, L503.0106, L400.2010, L500.4050, L500.4100, L502.0500, L100.0100, L506.0400, L506.1001 #### [facility] Laboratory [address] [place], [address] GFR/1.73 sq M.predicted among non-blacks MDRD (S/P/Bld) [Vol rate/Area] 58 mL/min/{1.73_m2} Low >60 [facility] Comment on above: Result Comment: Non- GFR Calc Performed By: #### L 3100.5310, L501.9520, L503.0106, L400.2010, L500.4050, L500.4100, L502.0500, L100.0100, L506.0400, L506.1001 #### [facility] Laboratory [address] [place], [address] Glucose [Mass/Vol] 95 mg/dL Normal 74-106 [facility] Comment on above: Performed By: #### L 3100.5310, L501.9520, L503.0106, L400.2011, L500.4050, L500.4100, L502.0500, L100.0100, L506.0400, L506.1001 #### [facility] Laboratory [address] [place], [address] Potassium [Moles/Vol] 4.3 mmol/L Normal 3.5-5.1 [facility] Comment on above: Performed By: #### L 3100.5310, L501.9520, L503.0106, L400.2011, L500.4050, L500.4100, L502.0500, L100.0100, L506.0400, L506.1001 #### [facility] Laboratory [address] [place], [place], [id number] ([phone]) Sodium [Moles/Vol] 138 mmol/L Normal 136-145 [facility] Comment on above: Performed By: #### L 3100.5310, L501.9520, L503.0106, L400.2011, L500.4050, L500.4100, L502.0500, L100.0100, L506.0400, L506.1001 #### [facility] Laboratory [address] [place], [place], [id number] ([phone]) Urea nitrogen [Mass/Vol] 29 mg/dL High 7-18 [facility] Comment on above: Performed By: #### L 3100.5310, L501.9520, L503.0106, L400.2010, L500.4050, L500.4100, L502.0500, L100.0100, L506.0400, L506.1001 #### [facility] Laboratory [address] [place], [address] Basophil percentageOrdered B y: Jm Joseph on 12-03-2024 Basophils/100 WBC (Bld) 0.5 % 0-[address] [facility] Blood urea nitrogen (BUN)/cr eatinine ratioOrdered By: Jm Joseph on 12-03-2024 Urea nitrogen/Creatinine [Mass ratio] 21.0 mg/mg High 10-20 [facility] CBC W/Diff, Automatedon 11-06 Absolute Lymph 1.56 X10 3/uL Normal 0.83-4.51 [facility] Comment on above: Performed By: #### L 3100.5310, L501.9520, L503.0106, L400.2010, L500.4050, L500.4100, L502.0500, L100.0100, L506.0400, L506.1001 #### [facility] Laboratory [address] [place], [address] Absolute Neut 4.2 X10 3/uL Normal 2.0-7.7 [facility] Comment on above: Performed By: #### L 3100.5310, L501.9520, L503.0106, L400.2010, L500.4050, L500.4100, L502.0500, L100.0100, L506.0400, L506.1001 #### [facility] Laboratory [address] [place], [address] Basophils/100 WBC (Bld) 0.5 % Normal 0-[address] [facility] Comment on above: Performed By: #### L 3100.5310, L501.9520, L503.0106, L400.2010, L500.4050, L500.4100, L502.0500, L100.0100, L506.0400, L506.1001 #### [facility] Laboratory [address] [place], [address] Eosinophils/100 WBC (Bld) 0.9 % Normal 0-5 [facility] Comment on above: Performed By: #### L 3100.5310, L501.9520, L503.0106, L400.2010, L500.4050, L500.4100, L502.0500, L100.0100, L506.0400, L506.1001 #### [facility] Laboratory [address] [place], [address] Erythrocyte distribution width (RBC) [Ratio] 12.5 % Normal 11.6-14.6 [facility] Comment on above: Performed By: #### L 3100.5310, L501.9520, L503.0106, L400.2010, L500.4050, L500.4100, L502.0500, L100.0100, L506.0400, L506.1001 #### [facility] Laboratory [address] [place], [address] Hematocrit (Bld) [Volume fraction] 47.3 % Normal 40-54 [facility] Comment on above: Performed By: #### L 3100.5310, L501.9520, L503.0106, L400.2010, L500.4050, L500.4100, L502.0500, L100.0100, L506.0400, L506.1001 #### [facility] Laboratory [address] [place], [address] Hemoglobin (Bld) [Mass/Vol] 15.1 g/dL Normal 13.0-16. 5 [facility] Comment on above: Performed By: #### L 3100.5310, L501.9520, L503.0106, L400.2010, L500.4050, L500.4100, L502.0500, L100.0100, L506.0400, L506.1001 #### [facility] Laboratory [address] [place], [address] IG% 0.300 Normal 0.0-0.9 [facility] Comment on above: Result Comment: IG% - Immature Granulocytes (promyelocytes, myelocytes and metamyelocytes) > 1% indicates that a LEFT SHIFT is Present. Performed By: #### L 3100.5310, L501.9520, L503.0106, L400.2010, L500.4050, L500.4100, L502.0500, L100.0100, L506.0400, L506.1001 #### [facility] Laboratory [address] [place], [address] Lymphocytes/100 WBC (Bld) 23.9 % Normal 19-41 [facility] Comment on above: Performed By: #### L 3100.5310, L501.9520, L503.0106, L400.2010, L500.4050, L500.4100, L502.0500, L100.0100, L506.0400, L506.1001 #### [facility] Laboratory [address] [place], [address] MCH (RBC) [Entitic mass] 30.5 pg Normal 27.0-32.0 [facility] Comment on above: Performed By: #### L 3100.5310, L501.9520, L503.0106, L400.2010, L500.4050, L500.4100, L502.0500, L100.0100, L506.0400, L506.1001 #### [facility] Laboratory [address] [place], [address] MCHC (RBC) [Mass/Vol] 31.9 g/dL Low 32-36 [facility] Comment on above: Performed By: #### L 3100.5310, L501.9520, L503.0106, L400.2010, L500.4050, L500.4100, L502.0500, L100.0100, L506.0400, L506.1001 #### [facility] Laboratory [address] [place], [address] MCV (RBC) [Entitic vol] 95.6 fL High 80-[address] [facility] Comment on above: Performed By: #### L 3100.5310, L501.9520, L503.0106, L400.2010, L500.4050, L500.4100, L502.0500, L100.0100, L506.0400, L506.1001 #### [facility] Laboratory [address] [place], [address] Monocytes/100 WBC (Bld) 9.8 % Normal 0-[address] [facility] Comment on above: Performed By: #### L 3100.5310, L501.9520, L503.0106, L400.2010, L500.4050, L500.4100, L502.0500, L100.0100, L506.0400, L506.1001 #### [facility] Laboratory [address] [place], [address] Neutrophils/100 WBC (Bld) 64.6 % Normal 47-70 [facility] Comment on above: Performed By: #### L 3100.5310, L501.9520, L503.0106, L400.2010, L500.4050, L500.4100, L502.0500, L100.0100, L506.0400, L506.1001 #### [facility] [address] [place], [address] Nucleated RBC (Bld) [#/Vol] 0 10*3/uL Normal 0-5 [facility] Comment on above: Performed By: #### L 3100.5310, L501.9520, L503.0106, L400.2010, L500.4050, L500.4100, L502.0500, L100.0100, L506.0400, L506.1001 #### [facility] Laboratory [address] [place], [address] Platelet mean volume (Bld) [Entitic vol] 10.2 fL Normal 6.2-12.0 [facility] Comment on above: Performed By: #### L 3100.5310, L501.9520, L503.0106, L400.2010, L500.4050, L500.4100, L502.0500, L100.0100, L506.0400, L506.1001 #### [facility] Laboratory [address] [place], [address] Platelets (Bld) [#/Vol] 260 10*3/uL Normal 150-450 [facility] Comment on above: Performed By: #### L 3100.5310, L501.9520, L503.0106, L400.2010, L500.4050, L500.4100, L502.0500, L100.0100, L506.0400, L506.1001 #### [facility] Laboratory [address] [place], [address] RBC (Bld) [#/Vol] 4.95 10*6/uL Normal 4.6-6.2 [facility] Comment on above: Performed By: #### L 3100.5310, L501.9520, L503.0106, L400.2010, L500.4050, L500.4100, L502.0500, L100.0100, L506.0400, L506.1001 #### [facility] Laboratory [address] [place], [address] RDW SD 43.6 fl Normal 35.1-43.9 [facility] Comment on above: Performed By: #### L 3100.5310, L501.9520, L503.0106, L400.2010, L500.4050, L500.4100, L502.0500, L100.0100, L506.0400, L506.1001 #### [facility] Laboratory [address] [place], [address] WBC (Bld) [#/Vol] 6.5 10*3/uL Normal 4.4-11.0 [facility] Comment on above: Performed By: #### L 3100.5310, L501.9520, L503.0106, L400.2010, L500.4050, L500.4100, L502.0500, L100.0100, L506.0400, L506.1001 #### [facility] [place], [address] Carbon dioxide measurementOr dered By: Jm Joseph on 12-03-2024 CO2 [Moles/Vol] 28.0 mmol/L 21.0-32.0 [facility] Chloride measurementOrdered By: Jm Joseph on 12-03-2024 Chloride [Moles/Vol] 105 mmol/L 98-107 [facility] Diagnostic total prostate sp ecific antigen (PSA) measurementOrdered By: Jm Joseph on 12-03-2024 Prostate Specific Antigen Total 0.50 ng/mL 0.0-4.0 [facility] Comment on above: This test was perfor med using the TPSA assay method for [employer] chemistry system. Values obtained with differentassay methods cannot be used interchangably.When changing PSA assays in the course of monitoring apatient, additional sequential testing should be carriedout to confirm baseline values. Eosinophil percentageOrdered By: Jm Joseph on 12-03-2024 Eosinophils/100 WBC (Bld) 0.9 % 0-5 [facility] Erythrocyte distribution wid th ratioOrdered By: Jm Joseph on 12-03-2024 Erythrocyte distribution width (RBC) [Ratio] 12.5 % 11.6-14.6 [facility] Erythrocyte distribution wid th standard deviationOrdered By: Jm Joseph on 12-03-2024 Erythrocyte distribution width (RBC) [Entitic vol] 43.6 fL 35.1-43.9 [facility] Erythrocyte distribution width (RBC) [Ratio] 43.6 fl 35.1-43.9 [facility] Estimated glomerular filtrat ion rate (GFR) AmericanOrdered By: Jm Joseph on 12-03-2024 Estimated GFR (MDRD) Amer 71 mL/min >60 [facility] Comment on above: GFR Calc Glomerular filtration rate ( GFR) estimationOrdered By: Jm Joseph on 12-03-2024 Estimated GFR (MDRD) Non-Af Amer 58 mL/min Low >60 [facility] Comment on above: Non- GFR Calc GFR/1.73 sq M.predicted among non-blacks MDRD (S/P/Bld) [Vol rate/Area] 58 mL/min/{1.73_m2} Low >60 [facility] Comment on above: Non- GFR Calc Glucose measurementOrdered B y: Jm Joseph on 12-03-2024 Glucose [Mass/Vol] 95 mg/dL 74-106 [facility] Hematocrit Auto (Bld) [Volum e fraction]Ordered By: Jm Joseph on 12-03-2024 Hematocrit (Bld) [Volume fraction] 47.3 % 40-54 [facility] Hemoglobin measurementOrdere d By: Jm Joseph on 12-03-2024 Hemoglobin (Bld) [Mass/Vol] 15.1 g/dL 13.0-16. 5 [facility] High density lipoprotein (HD L) measurementOrdered By: Jm Joseph on 12-03-2024 Cholesterol in HDL [Mass/Vol] 47 mg/dL >40 [facility] Comment on above: The drugs N-Acetylcy steine and Metamizole may falsely depress this assay. Reference Range HDL <40 mg/dL Low HDL Cholesterol HDL >or= 60 mg/dL High HDL Cholesterol Immature granulocytes/100 WB C Auto (Bld)Ordered By: Jm Joseph on 12-03-2024 Immature granulocytes/100 WBC (Bld) 0.300 % 0.0-0.9 [facility] Comment on above: IG% - Immature Granu locytes (promyelocytes, myelocytes and metamyelocytes) > 1% indicates that a LEFT SHIFT is Present. Lipid Profileon 12-03-2024 Cholesterol [Mass/Vol] 128 mg/dL Normal 200 [facility] Comment on above: Result Comment: <200 mg/dL Desirable 200-240 mg/dL Borderline >240 mg/dL High Risk Performed By: #### L 3100.5310, L501.9520, L503.0106, L400.2011, L500.4050, L500.4100, L502.0500, L100.0100, L506.0400, L506.1001 #### [facility] Laboratory [employer] [address] [place], [place], [id number] [phone] Cholesterol in HDL [Mass/Vol] 47 mg/dL Normal [facility] Comment on above: Result Comment: The drugs N-Acetylcysteine and Metamizole may falsely depress this assay. Reference Range HDL <40 mg/dL Low HDL Cholesterol HDL >or= 60 mg/dL High HDL Cholesterol Performed By: #### L 3100.5310, L501.9520, L503.0106, L400.2010, L500.4050, L500.4100, L502.0500, L100.0100, L506.0400, L506.1001 #### [facility] [address] [place], [address] Cholesterol in LDL [Mass/Vol] 52 mg/dL Normal 0-130 [facility] Comment on above: Performed By: #### L 3100.5310, L501.9520, L503.0106, L400.2010, L500.4050, L500.4100, L502.0500, L100.0100, L506.0400, L506.1001 #### [facility] [address] [place], [address] Cholesterol in VLDL [Mass/Vol] 29 mg/dL Normal 5-40 [facility] Comment on above: Performed By: #### L 3100.5310, L501.9520, L503.0106, L400.2010, L500.4050, L500.4100, L502.0500, L100.0100, L506.0400, L506.1001 #### [facility] [address] [place], [address] Triglyceride [Mass/Vol] 146 mg/dL Normal [facility] Comment on above: Result Comment: The drugs N-Acetylcysteine and Metamizole may falsely depress this assay. Serum Triglycerides Reference Interval Normal <150 mg/dL Borderline high 150 - 199 mg/dL High 200 - 499 mg/dL Very High > or = 500 mg/dL Performed By: #### L 3100.5310, L501.9520, L503.0106, L400.2011, L500.4050, L500.4100, L502.0500, L100.0100, L506.0400, L506.1001 #### [facility] [place], [address] Low density lipoprotein (LDL ) cholesterol measurementOrdered By: Jm Joseph on 12-03-2024 Cholesterol in LDL [Mass/Vol] 52 mg/dL 0-130 [facility] Lymphocytes Auto (Unsp spec) [#/Vol]Ordered By: Jm Joseph on 12-03-2024 Lymphocytes (Bld) [#/Vol] 1.56 10*3/uL 0.83-4.5 1 [facility] Lymphocytes/100 WBC Auto (Un sp spec)Ordered By: Jm Joseph on 12-03-2024 Lymphocytes/100 WBC (Bld) 23.9 % 19-41 [facility] MCV (mean corpuscular volume ) determinationOrdered By: Jm Joseph on 12-03-2024 MCV (RBC) [Entitic vol] 95.6 fL High 80-[address] [facility] Mean corpuscular hemoglobin (MCH) determinationOrdered By: Jm Joseph on 12-03-2024 MCH (RBC) [Entitic mass] 30.5 pg 27.0-32.0 [facility] Mean corpuscular hemoglobin concentration (MCHC) determinationOrdered By: Jm Joseph on 12-03-2024 MCHC (RBC) [Mass/Vol] 31.9 g/dL Low 32-36 [facility] Mean platelet volume determi nationOrdered By: Jm Joseph on 12-03-2024 Platelet mean volume (Bld) [Entitic vol] 10.2 fL 6.2-12.0 [facility] Monocyte percentageOrdered B y: Jm Joseph on 12-03-2024 Monocytes/100 WBC (Bld) 9.8 % 0-[address] [facility] Neutrophil percentageOrdered By: Jm Joseph on 12-03-2024 Neutrophils/100 WBC (Bld) 64.6 % 47-70 [facility] Nucleated red blood cell per centageOrdered By: Jm Joseph on 12-03-2024 Nucleated RBC/100 WBC (Bld) [Ratio] 0 % 0-5 [facility] PSA,Total- Diagnosticon 3 0 PSA, DIAGNOSTIC 0.50 ng/mL Normal 0.0-4.0 [facility] Comment on above: Result Comment: This test was performed using the TPSA assay method for the [employer] chemistry system. Values obtained with different assay methods cannot be used interchangably. When changing PSA assays in the course of monitoring a patient, additional sequential testing should be carried out to confirm baseline values. Performed By: #### L 3100.5310, L501.9520, L503.0106, L400.2011, L500.4050, L500.4100, L502.0500, L100.0100, L506.0400, L506.1001 #### [facility] [address] [place], [address] Platelet countOrdered By: Lamin Joseph on 12-03-2024 Platelets (Bld) [#/Vol] 260 10*3/uL 150-450 [facility] Potassium measurementOrdered By: Jm Joseph on 12-03-2024 Potassium [Moles/Vol] 4.3 mmol/L 3.5-5.1 [facility] RBC Auto (Bld) [#/Vol]Ordere d By: Jm Joseph on 12-03-2024 RBC (Bld) [#/Vol] 4.95 10*6/uL 4.6-6.2 [facility] Serum anion gap measurementO rdered By: Jm Joseph on 12-03-2024 Anion gap [Moles/Vol] 5 mmol/L 5-15 [facility] Serum or plasma calcium rafa urement (mass/volume)Ordered By: Jm Joseph on 12-03-2024 Calcium [Mass/Vol] 9.6 mg/dL 8.5-10.1 [facility] Serum or plasma cholesterol measurement (mass/volume)Ordered By: Jm Joseph on 12-03-2024 Cholesterol [Mass/Vol] 128 mg/dL <200 [facility] Comment on above: <200 mg/dL Desirable 200-240 mg/dL Borderline >240 mg/dL High Risk Serum or plasma creatinine m easurement (mass/volume)Ordered By: Jm Joseph on 12-03-2024 Creatinine [Mass/Vol] 1.38 mg/dL High 0.70-1.30 [facility] Comment on above: The validity of the calculated GFR & GFRAA in patients over 70 years has not been determined. Clinical correlation is essential. Serum or plasma urea nitroge n measurement (mass/volume)Ordered By: Jm Joseph on 12-03-2024 Urea nitrogen [Mass/Vol] 29 mg/dL High 7-18 [facility] Sodium levelOrdered By: Jm Joseph on 12-03-2024 Sodium [Moles/Vol] 138 mmol/L 136-145 [facility] Testosterone, Serum Totalon 12-03-2024 Testosterone [Mass/Vol] 558.37 ng/dL Normal [facility] Comment on above: Result Comment: CENT RAL 90% REFERENCE RANGES MALE AGE <50 197.44 - 669.58 ng/dL MALE AGE > or = 50 187.72 - 684.19 ng/dL FEMALE AGE <50 8.38 - 35.01 ng/dL FEMALE AGE > or = 50 <7.00 - 35.92 ng/dL Effective as of 05/30/21 Performed By: #### L 3100.5310, L501.9520, L503.0106, L400.2011, L500.4050, L500.4100, L502.0500, L100.0100, L506.0400, L506.1001 #### [facility] Laboratory [address] [place], [address] Testosterone, totalOrdered B y: Jm Joseph on 12-03-2024 Testosterone [Mass/Vol] 558.37 ng/dL [facility] Comment on above: CENTRAL 90% REFERENC E RANGES MALE AGE <50 197.44 - 669.58 ng/dL MALE AGE > or = 50 187.72 - 684.19 ng/dL FEMALE AGE <50 8.38 - 35.01 ng/dL FEMALE AGE > or = 50 <7.00 - 35.92 ng/dL Effective as of 05/30/21 Triglycerides measurementOrd ered By: Jm Joseph on 12-03-2024 Triglyceride [Mass/Vol] 146 mg/dL <[address] [facility] Comment on above: The drugs N-Acetylcy steine and Metamizole may falsely depress this assay.Serum Triglycerides Reference Interval Normal <150 mg/dL Borderline high 150 - 199 mg/dL High 200 - 499 mg/dL Very High > or = 500 mg/dL Very low density lipoprotein (VLDL) cholesterol measurementOrdered By: Jm Joseph on 12-03-2024 Very low density lipoprotein (VLDL) cholesterol measurement 29 mg/dL 5-40 [facility] VLDL Cholesterol 29 mg/dL -40 [facility] White blood cell (WBC) count Ordered By: Jm Joseph on 12-03-2024 WBC (Bld) [#/Vol] 6.5 10*3/uL 4.4-11.0 [facility] L3410.9999on 11-10-2024 [facility] Misc. COMMENT Normal . [facility] Comment on above: Order Comment: [id number] 3URINE TOXICOLOGY Result Comment: Test Ordered: [id number] 6+Oxycodone-Bund Amphetamines, Urine Negative ng/mL UI Reference Range: Mnzdxs=0957 Amphetamine test includes Amphetamine and Methamphetamine. Barbiturate Negative ng/mL UI Reference Range: Tmucxk=004 Benzodiazepines Negative ng/mL UI Reference Range: Ggnuth=565 Cannabinoids Negative ng/mL UI Reference Range: Cutoff=20 Cocaine (Metabolite) Negative ng/mL UI Reference Range: Rbktwe=664 Opiates Negative ng/mL UI Reference Range: Syienc=072 Opiate test includes Codeine, Morphine, Hydromorphone, Hydrocodone. Oxycodone/Oxymorphone, Urine Negative ng/mL UI Reference Range: Qhofdl=421 Test includes Oxycodone and Oxymorphone Performed at: [facility] [address] [facility], [place], [place] [id number] Assistant Winemaker: Cecile Rosa PhD, Phone: [phone] Performed at: [facility] [address] [id number] Assistant Winemaker: Jens Guardado PhD, Phone: [phone] Performed By: #### L 8182.4512, L501.9520, L503.0106, L400.2011, L500.4050, L500.4100, L502.0500, L100.0100, L506.0400, L506.1001 #### [facility] Laboratory [address] [place], [address] Cerv Spine 2 or 3 Viewson Cerv Spine 2 or 3 Views [facility] Imaging Services [address] [place] [address] Cerv Spine 2 or 3 Views MR#: [id number] Acct: [id number] Name: KULWANT VALLES Rep #: [id number] : 1975 M 49 From: Dileep Teran DO PCP: Dr. Jm Joseph MD Status: [facility] Study: Cerv Spine 2 or 3 Views Date of Exam: 11/06/24 Exam# [id number] Ordering Dr: Clemente Zhou MD [id number] STUDY: X-RAY - CERVICAL SPINE REASON FOR EXAM: Male, 49 years old. Radiculopathy, cervical region TECHNIQUE: 4 view(s) of the cervical spine were obtained. COMPARISON: None FINDINGS: Normal anterior atlantoaxial articulation. Normal odontoid process. Straightening of the cervical lordosis. Normal vertebral bodies. Mild spurring at the mid cervical vertebral endplates. Normal disc space heights. The soft tissue structures are unremarkable. RAD/Cerv Spine 2 or 3 Views IMPRESSION: Mild degenerative changes of the visualized cervical spine. Electronically Signed: Dileep Teran DO at 16:43 EST Reading Location ID and State: [facility] / [place] Tel [phone], Service support , CC: Dr. Clemente Zhou MD; Dr. Jm Joseph MD Frame Runner: Signed Normal [facility] Knee 4 or More Viewson 11-06 Knee 4 or More Views [facility] Imaging Services [place], [place] [address] Knee 4 or More Views MR#: [id number] Acct: [id number] Name: KULWANT VALLES Rep #: [id number] : 1975 M 49 From: Dileep Teran DO PCP: Dr. Jm Joseph MD Status: [facility] Study: Knee 4 or More Views Date of Exam: 11/06/24 Exam# [id number] Ordering Dr: Clemente Zhou [place] [id number] INDICATION: KNEE PAIN EXAMINATION/TECHNIQUE: X-RAY - RIGHT XR Knee Complete 4 Views COMPARISON: FINDINGS: SOFT TISSUES: No soft tissue swelling or gas. No radiopaque foreign body. BONES/JOINTS: No acute fracture or subluxation.. Mild spurs at the medial femorotibial compartment. Normal alignment. Preservation of the joint space.. No sclerotic or destructive changes observed. RAD/Knee 4 or More Views IMPRESSION: Mild degenerative changes. Electronically Signed: Dileep Teran DO at 16:40 EST Reading Location ID and State: [facility] / [place] Tel [phone], Service support , CC: Dr. Clemente Zhou MD; Dr. Jm Joseph MD Frame Runner: Signed Normal [facility] Methadone, urineOrdered By: Clemente Zhou on 11-06-2024 Urine Methadone Screen Negative < 300 ng/mL [facility] No Panel InformationOrdered By: Clemente Zhou on 11-06-2024 Miscellaneous Test COMMENT . [facility] Comment on above: Test Ordered: [id number] 6+Oxycodone-BundAmphetamines, Urine Negative ng/mL UI Reference Range: Rhorrc=5458Igwxrikcuiy test includes Amphetamine and Methamphetamine.Barbiturate Negative ng/mL UI Reference Range: Xzrutx=906Jcytpajszcdzjyv Negative ng/mL UI Reference Range: Mjuvky=364Esztchsjnrka Negative ng/mL UI Reference Range: Cutoff=20Cocaine (Metabolite) Negative ng/mL UI Reference Range: Djkxis=849Dioxqeq Negative ng/mL UI Reference Range: Cemwth=182Pvshrb test includes Codeine, Morphine, Hydromorphone, Hydrocodone.Oxycodone/Oxymorphone, Urine Negative ng/mL UI Reference Range: Dhegec=616Cqld includes Oxycodone and OxymorphonePerformed at: [facility] [address] [place], [place] [id number] Director: Cecile Rosa PhD, Phone: [phone] at: [facility] [address] [id number] Director: Jens Guardado PhD, Phone: [phone] Urine Drug Screen Comment [facility] Comment on above: CONFIRMATORY TESTING FOR ALL POSITIVE URINE DRUG SCREENRESULTS WILL ONLY BE SENT OUT UPON PHYSICIAN ORDER. VISTA Urine Drug Screen methods provide only preliminaryanalytical test results. A more specific alternate chemicalmethod must be used in order to obtain a confirmedanalytical result. Gas chromatography/mass spectrometery(GC/MS) is the preferred confirmatory method. Clinicalconsideration and professional judgement should be appliedto any drug of abuse test result, particularly whenpreliminary positive results are used. URINE TCA TESTING MUST BE ORDERED SEPARATELY. USE TESTMNEMONIC: UTCA Quantitative urine opiates m easurementOrdered By: Clemente Zhou on 11-06-2024 Opiates Ql (U) Negative < 300 ng/mL [facility] Urine Drug Screen (VISTA)on 11-06-2024 AMPHETAMINES Negative Normal <1000 ng/mL [facility] Comment on above: Order Comment: MEDTO X Performed By: #### L 3100.5310, L501.9520, L503.0106, L400.2011, L500.4050, L500.4100, L502.0500, L100.0100, L506.0400, L506.1001 #### [facility] Laboratory [address] [place], [place], [phone] (788) BARBITIURATES Negative Normal < 200 ng/mL [facility] Comment on above: Order Comment: MEDTO X Performed By: #### L 3100.5310, L501.9520, L503.0106, L400.2011, L500.4050, L500.4100, L502.0500, L100.0100, L506.0400, L506.1001 #### [facility] Laboratory [address] [place], [place], [phone] (926) BENZODIAZIPINE Negative Normal < 200 ng/mL [facility] Comment on above: Order Comment: MEDTO X Performed By: #### L 3100.5310, L501.9520, L503.0106, L400.2010, L500.4050, L500.4100, L502.0500, L100.0100, L506.0400, L506.1001 #### [facility] Laboratory [address] [place], [place], [phone] COCAINE Negative Normal < 300 ng/mL [facility] Comment on above: Order Comment: MEDTO X Performed By: #### L 3100.5310, L501.9520, L503.0106, L400.2010, L500.4050, L500.4100, L502.0500, L100.0100, L506.0400, L506.1001 #### [facility] Laboratory [address] [place], [place], [phone] ECSTACY Negative Normal < 500 ng/mL [facility] Comment on above: Order Comment: MEDTO X Performed By: #### L 3100.5310, L501.9520, L503.0106, L400.2011, L500.4050, L500.4100, L502.0500, L100.0100, L506.0400, L506.1001 #### [facility] Laboratory [address] [place], [address] METHADONE Negative Normal < 300 ng/mL [facility] Comment on above: Order Comment: MEDTO X Performed By: #### L 3100.5310, L501.9520, L503.0106, L400.2011, L500.4050, L500.4100, L502.0500, L100.0100, L506.0400, L506.1001 #### [facility] Laboratory [address] [place], [address] OPIATES Negative Normal < 300 ng/mL [facility] Comment on above: Order Comment: MEDTO X Performed By: #### L 3100.5310, L501.9520, L503.0106, L400.2010, L500.4050, L500.4100, L502.0500, L100.0100, L506.0400, L506.1001 #### [facility] Laboratory [address] [place], [place], [phone] PCP Negative Normal < 25 ng/mL [facility] Comment on above: Order Comment: MEDTO X Performed By: #### L 3100.5310, L501.9520, L503.0106, L400.2010, L500.4050, L500.4100, L502.0500, L100.0100, L506.0400, L506.1001 #### [facility] [address] [place], [address] THC Negative Normal < 50 ng/mL [facility] Comment on above: Order Comment: MEDTO X Performed By: #### L 3100.5310, L501.9520, L503.0106, L400.2010, L500.4050, L500.4100, L502.0500, L100.0100, L506.0400, L506.1001 #### [facility] Laboratory [address] [place], [place], [phone] (104) VISTA UDS PH 5 Normal [facility] Comment on above: Order Comment: MEDTO X Performed By: #### L 3100.5310, L501.9520, L503.0106, L400.2010, L500.4050, L500.4100, L502.0500, L100.0100, L506.0400, L506.1001 #### [facility] Laboratory [place], [address] Urine amphetamine measuremen tOrdered By: Clemente Zhou on 11-06-2024 Amphetamines Ql (U) Negative <1000 ng/mL [facility] Urine barbiturates measureme ntOrdered By: Clemente Zhou on 11-06-2024 Urine Barbiturates Screen Negative < 200 ng/mL [facility] Urine benzodiazepine levelOr dered By: Clemente Zhou on 11-06-2024 Benzodiazepines Ql (U) Negative < 200 ng/mL [facility] Urine cocaine levelOrdered B y: Clemente Pascuali on 11-06-2024 Cocaine Ql (U) Negative < 300 ng/mL [facility] Urine mkvud-1-cfaqfhtgkvcqeq abinol (THC) measurementOrdered By: Clemente Zhou on 11-06-2024 Cannabinoids Screen Ql (U) Negative < 50 ng/m L [facility] Urine methylenedioxymethamph etamine (MDMA) measurementOrdered By: Clemente Zhou on 11-06-2024 MDMA (Ecstasy) Screen Negative < 500 ng/mL [facility] Urine phencyclidine (PCP) de tectionOrdered By: Clemente Zhou on 11-06-2024 Phencyclidine Ql (U) Negative < 25 ng/mL [facility] Testosterone, Total / Freeon 06-05-2024 TESTOSTER,FREE 27.24 ng/dL Abnormal 5.00-21.00 [facility] Comment on above: Order Comment: NUNK Performed By: #### L 3100.5310, L501.9520, L503.0106, L400.2010, L500.4050, L500.4100, L502.0500, L100.0100, L506.0400, L506.1001 #### [facility] Laboratory [address] [place], [address] TESTOSTERONE, T 564 ng/dL Normal 264-916 [facility] Comment on above: Order Comment: NUNK Result Comment: Adul t male reference interval is based on a population of healthy nonobese males (BMI <30) between 19 and 39 years old. easton De La Cruz.al. JCEM 2017,102;9088-2179. PMID: [id number]. Performed By: #### L 3100.5310, L501.9520, L503.0106, L400.2011, L500.4050, L500.4100, L502.0500, L100.0100, L506.0400, L506.1001 #### [facility] Laboratory [address] [place], [place], [phone] (411) TESTOSTERONE,%F 4.83 High 1.50-4.20 [facility] Comment on above: Order Comment: NUNK Result Comment: Perf ormed at: [facility] [address] [id number] Assistant Winemaker: Jens Guardado PhD, Phone: [phone] Performed at: [facility] [address] [id number] Assistant Winemaker: Mookie Camargo MD, Phone: [phone] Performed By: #### L 3100.5310, L501.9520, L503.0106, L400.2010, L500.4050, L500.4100, L502.0500, L100.0100, L506.0400, L506.1001 #### [facility] Laboratory [address] [place], [address] Basic Metabolic Profile (BMP )on 06-02-2024 BUN/CRE 18.8 RATIO Normal 10-20 [facility] Comment on above: Order Comment: UNK Performed By: #### L 3100.5310, L501.9520, L503.0106, L400.2010, L500.4050, L500.4100, L502.0500, L100.0100, L506.0400, L506.1001 #### [facility] Laboratory [address] [place], [address] CA,Total 8.9 mg/dL Normal 8.5-10.1 [facility] Comment on above: Order Comment: UNK Performed By: #### L 3100.5310, L501.9520, L503.0106, L400.2010, L500.4050, L500.4100, L502.0500, L100.0100, L506.0400, L506.1001 #### [facility] Laboratory [address] [place], [address] Chloride [Moles/Vol] 105 mmol/L Normal 98-107 [facility] Comment on above: Order Comment: UNK Performed By: #### L 3100.5310, L501.9520, L503.0106, L400.2010, L500.4050, L500.4100, L502.0500, L100.0100, L506.0400, L506.1001 #### [facility] Laboratory [address] [place], [address] CO2 [Moles/Vol] 30.0 mmol/L Normal 21.0-32.0 [facility] Comment on above: Order Comment: UNK Performed By: #### L 3100.5310, L501.9520, L503.0106, L400.2010, L500.4050, L500.4100, L502.0500, L100.0100, L506.0400, L506.1001 #### [facility] Laboratory [address] [place], [address] Creatinine [Mass/Vol] 1.17 mg/dL Normal 0.70-1.30 [facility] Comment on above: Order Comment: UNK Result Comment: The validity of the calculated GFR GFRAA in patients over 70 years has not been determined. Clinical correlation is essential. Performed By: #### L 3100.5310, L501.9520, L503.0106, L400.2011, L500.4050, L500.4100, L502.0500, L100.0100, L506.0400, L506.1001 #### [facility] Laboratory [address] [place], [place], [phone] EST GFR - AA 86 mL/min Normal >60 [facility] Comment on above: Order Comment: UNK Result Comment: Afri can Burundian GFR Calc Performed By: #### L 3100.5310, L501.9520, L503.0106, L400.2010, L500.4050, L500.4100, L502.0500, L100.0100, L506.0400, L506.1001 #### [facility] Laboratory [address] [place], [place], [phone] GAP 3 Low 5-15 [facility] Comment on above: Order Comment: UNK Performed By: #### L 3100.5310, L501.9520, L503.0106, L400.2010, L500.4050, L500.4100, L502.0500, L100.0100, L506.0400, L506.1001 #### [facility] [address] [place], [place], [phone] GFR/1.73 sq M.predicted among non-blacks MDRD (S/P/Bld) [Vol rate/Area] 71 mL/min/{1.73_m2} Normal >60 [facility] Comment on above: Order Comment: UNK Result Comment: Non- GFR Calc Performed By: #### L 3100.5310, L501.9520, L503.0106, L400.2010, L500.4050, L500.4100, L502.0500, L100.0100, L506.0400, L506.1001 #### [facility] [address] [place], [address] Glucose [Mass/Vol] 106 mg/dL Normal 74-106 [facility] Comment on above: Order Comment: UNK Result Comment: Fast ing Glucose result from 100 to 125 mg/dL suggests IMPAIRED HOMEOSTASIS per A.D.A. criteria. Performed By: #### L 3100.5310, L501.9520, L503.0106, L400.2010, L500.4050, L500.4100, L502.0500, L100.0100, L506.0400, L506.1001 #### [facility] [address] [place], [address] Potassium [Moles/Vol] 4.2 mmol/L Normal 3.5-5.1 [facility] Comment on above: Order Comment: UNK Performed By: #### L 3100.5310, L501.9520, L503.0106, L4.2010, L500.4050, L500.4100, L502.0500, L100.0100, L506.0400, L506.1001 #### [facility] [address] [place], [address] Sodium [Moles/Vol] 138 mmol/L Normal 136-145 [facility] Comment on above: Order Comment: UNK Performed By: #### L 3100.5310, L501.9520, L503.0106, L4.2010, L500.4050, L500.4100, L502.0500, L100.0100, L506.0400, L506.1001 #### [facility] [address] [place], [address] Urea nitrogen [Mass/Vol] 22 mg/dL High 7-18 [facility] Comment on above: Order Comment: UNK Performed By: #### L 3100.5310, L501.9520, L503.0106, L4.2010, L500.4050, L500.4100, L502.0500, L100.0100, L506.0400, L506.1001 #### [facility] Laboratory [address] [place], [place], [phone] CBC W/Diff, Automatedon 07-3 0-2024 Absolute Lymph 1.42 X10 3/uL Normal 0.83-4.51 [facility] Comment on above: Performed By: #### L 3100.5310, L501.9520, L503.0106, L400.2010, L500.4050, L500.4100, L502.0500, L100.0100, L506.0400, L506.1001 #### [facility] [address] [place], [place], [phone] (360) Absolute Neut 3.1 X10 3/uL Normal 2.0-7.7 [facility] Comment on above: Performed By: #### L 3100.5310, L501.9520, L503.0106, L400.2010, L500.4050, L500.4100, L502.0500, L100.0100, L506.0400, L506.1001 #### [facility] Laboratory [address] [place], [place], [phone] ([address] Basophils/100 WBC (Bld) 0.8 % Normal 0-[address] [facility] Comment on above: Performed By: #### L 3100.5310, L501.9520, L503.0106, L400.2010, L500.4050, L500.4100, L502.0500, L100.0100, L506.0400, L506.1001 #### [facility] [address] [place], [place], [phone] (188 Eosinophils/100 WBC (Bld) 1.3 % Normal 0-5 [facility] Comment on above: Performed By: #### L 3100.5310, L501.9520, L503.0106, L400.2010, L500.4050, L500.4100, L502.0500, L100.0100, L506.0400, L506.1001 #### [facility] [address] [place], [address] Erythrocyte distribution width (RBC) [Ratio] 12.2 % Normal 11.6-14.6 [facility] Comment on above: Performed By: #### L 3100.5310, L501.9520, L503.0106, L400.2010, L500.4050, L500.4100, L502.0500, L100.0100, L506.0400, L506.1001 #### [facility] [address] [place], [place], [id number] (774) Hematocrit (Bld) [Volume fraction] 45.6 % Normal 40-54 [facility] Comment on above: Performed By: #### L 3100.5310, L501.9520, L503.0106, L400.2010, L500.4050, L500.4100, L502.0500, L100.0100, L506.0400, L506.1001 #### [facility] [address] [place], [place], [phone] (274) Hemoglobin (Bld) [Mass/Vol] 14.9 g/dL Normal 13.0-16. 5 [facility] Comment on above: Performed By: #### L 3100.5310, L501.9520, L503.0106, L400.2010, L500.4050, L500.4100, L502.0500, L100.0100, L506.0400, L506.1001 #### [facility] [address] [facility] [place], [address] IG% 0.600 Normal 0.0-0.9 [facility] Comment on above: Result Comment: IG% - Immature Granulocytes (promyelocytes, myelocytes and metamyelocytes) > 1% indicates that a LEFT SHIFT is Present. Performed By: #### L 3100.5310, L501.9520, L503.0106, L400.2010, L500.4050, L500.4100, L502.0500, L100.0100, L506.0400, L506.1001 #### [facility] [address] [place], [address] Lymphocytes/100 WBC (Bld) 27.3 % Normal 19-41 [facility] Comment on above: Performed By: #### L 3100.5310, L501.9520, L503.0106, L400.2010, L500.4050, L500.4100, L502.0500, L100.0100, L506.0400, L506.1001 #### [facility] [address] [place], [address] MCH (RBC) [Entitic mass] 31.0 pg Normal 27.0-32.0 [facility] Comment on above: Performed By: #### L 3100.5310, L501.9520, L503.0106, L400.2010, L500.4050, L500.4100, L502.0500, L100.0100, L506.0400, L506.1001 #### [facility] [address] [facility] [place], [address] MCHC (RBC) [Mass/Vol] 32.7 g/dL Normal 32-36 [facility] Comment on above: Performed By: #### L 3100.5310, L501.9520, L503.0106, L400.2010, L500.4050, L500.4100, L502.0500, L100.0100, L506.0400, L506.1001 #### [facility] [address] [place], [address] MCV (RBC) [Entitic vol] 94.8 fL High 80-[address] [facility] Comment on above: Performed By: #### L 3100.5310, L501.9520, L503.0106, L400.2010, L500.4050, L500.4100, L502.0500, L100.0100, L506.0400, L506.1001 #### [facility] [address] [place], [address] Monocytes/100 WBC (Bld) 10.4 % High 0-[address] [facility] Comment on above: Performed By: #### L 3100.5310, L501.9520, L503.0106, L400.2010, L500.4050, L500.4100, L502.0500, L100.0100, L506.0400, L506.1001 #### [facility] [address] [place], [address] Neutrophils/100 WBC (Bld) 59.6 % Normal 47-70 [facility] Comment on above: Performed By: #### L 3100.5310, L501.9520, L503.0106, L400.2010, L500.4050, L500.4100, L502.0500, L100.0100, L506.0400, L506.1001 #### [facility] [address] [facility] [place], [address] Nucleated RBC (Bld) [#/Vol] 0 10*3/uL Normal 0-5 [facility] Comment on above: Performed By: #### L 3100.5310, L501.9520, L503.0106, L400.2010, L500.4050, L500.4100, L502.0500, L100.0100, L506.0400, L506.1001 #### [facility] [address] [facility] [place], [address] Platelet mean volume (Bld) [Entitic vol] 9.9 fL Normal 6.2-12.0 [facility] Comment on above: Performed By: #### L 3100.5310, L501.9520, L503.0106, L4, L500.4050, L500.4100, L502.0500, L100.0100, L506.0400, L506.1001 #### [facility] [address] [place], [address] Platelets (Bld) [#/Vol] 219 10*3/uL Normal 150-450 [facility] Comment on above: Performed By: #### L 3100.5310, L501.9520, L503.0106, L400.2011, L500.4050, L500.4100, L502.0500, L100.0100, L506.0400, L506.1001 #### [facility] [address] [place], [address] RBC (Bld) [#/Vol] 4.81 10*6/uL Normal 4.6-6.2 [facility] Comment on above: Performed By: #### L 3100.5310, L501.9520, L503.0106, L400.2010, L500.4050, L500.4100, L502.0500, L100.0100, L506.0400, L506.1001 #### [facility] [address] [place], [address] RDW SD 42.5 fl Normal 35.1-43.9 [facility] Comment on above: Performed By: #### L 3100.5310, L501.9520, L503.0106, L400.2010, L500.4050, L500.4100, L502.0500, L100.0100, L506.0400, L506.1001 #### [facility] [address] [place], [address] WBC (Bld) [#/Vol] 5.2 10*3/uL Normal 4.4-11.0 [facility] Comment on above: Performed By: #### L 3100.5310, L501.9520, L503.0106, L400.2011, L500.4050, L500.4100, L502.0500, L100.0100, L506.0400, L506.1001 #### [facility] [address] [place], [address] Lipid Profileon 06-02-2024 Cholesterol [Mass/Vol] 106 mg/dL Normal 200 [facility] Comment on above: Order Comment: UNK Result Comment: <200 mg/dL Desirable 200-240 mg/dL Borderline >240 mg/dL High Risk Performed By: #### L 3100.5310, L501.9520, L503.0106, L400.2010, L500.4050, L500.4100, L502.0500, L100.0100, L506.0400, L506.1001 #### [facility] [address] [place], [address] Cholesterol in HDL [Mass/Vol] 45 mg/dL Normal [facility] Comment on above: Order Comment: UNK Result Comment: The drugs N-Acetylcysteine and Metamizole may falsely depress this assay. Reference Range HDL <40 mg/dL Low HDL Cholesterol HDL >or= 60 mg/dL High HDL Cholesterol Performed By: #### L 3100.5310, L501.9520, L503.0106, L400.2010, L500.4050, L500.4100, L502.0500, L100.0100, L506.0400, L506.1001 #### [facility] [address] [place], [address] Cholesterol in LDL [Mass/Vol] 40 mg/dL Normal 0-130 [facility] Comment on above: Order Comment: UNK Performed By: #### L 3100.5310, L501.9520, L503.0106, L400.2010, L500.4050, L500.4100, L502.0500, L100.0100, L506.0400, L506.1001 #### [facility] [address] [place], [address] Cholesterol in VLDL [Mass/Vol] 21 mg/dL Normal 5-40 [facility] Comment on above: Order Comment: UNK Performed By: #### L 3100.5310, L501.9520, L503.0106, L400.2011, L500.4050, L500.4100, L502.0500, L100.0100, L506.0400, L506.1001 #### [facility] [address] [place], [address] Triglyceride [Mass/Vol] 107 mg/dL Normal [facility] Comment on above: Order Comment: UNK Result Comment: The drugs N-Acetylcysteine and Metamizole may falsely depress this assay. Serum Triglycerides Reference Interval Normal <150 mg/dL Borderline high 150 - 199 mg/dL High 200 - 499 mg/dL Very High > or = 500 mg/dL Performed By: #### L 3100.5310, L501.9520, L503.0106, L400.2010, L500.4050, L500.4100, L502.0500, L100.0100, L506.0400, L506.1001 #### [facility] [address] [place], [place], [address] PSA,Total - Annual Screenon 06-02-2024 PSA,TOT SCREEN 0.58 ng/mL Normal 0.00-4.00 [facility] Comment on above: Order Comment: UNK Result Comment: This test was performed using the TPSA assay method for the [employer] system. Values obtained with different assay methods cannot be used interchangably. When changing PSA assays in the course of monitoring a patient, additional sequential testing should be carried out to confirm baseline values. Performed By: #### L 3100.5310, L501.9520, L503.0106, L400.2011, L500.4050, L500.4100, L502.0500, L100.0100, L506.0400, L506.1001 #### [facility] [address] [place], [address] Emergency Department Summary on 05-11-2024 Emergency Department Summary [facility] Medical Records Department [address] [place] [address] Emergency Department Summary 05/11/24 MR#: [id number] Acct: [id number] Name: KULWANT VALLES Rep #: [id number] : 1975 49 From: Robby Xie DO PCP: Dr. Jm Joseph MD Status:DEP ER Location: ED HPI History of Present Illness Chief Complaint: Chest Other Informant: patient Onset/Context/Timing Onset: Today Mechanism/Context: Fall Quality of Pain: Sharp Location: Left ribs Worsened by: Coughing, sneezing, moving Relieved by: Nothing Associated Symptoms Associated Symptoms: Negative for Parasthesias, Weakness, Loss of function, Inability to ambulate or Loss of consciousness Narrative Narrative: Patient presents with possible rib fracture that occurred 4 days ago. Patient states he fell and hit his chest on a floor joist. Patient states his pain is over the left upper ribs. Patient describes the pain as sharp. Patient states pain has been constant. Patient states it is worse with coughing, sneezing, and moving. Patient states nothing seems to help with his pain. Patient denies any head injury or loss of consciousness. Patient denies any other injuries. Patient denies any shortness of breath but states that it hurts to take a deep breath. [facility] Medical History Wears glasses Anxiety Arthritis High cholesterol Chewing tobacco use History of stress test Cardiology follow-up encounter Hypertension Home Medications ???Medication ???Instructions ???Recorded ???Last Taken ???Type acetaminophen 325 mg tablet 2,000 mg PO BID 06/12/22 Unknown History (Tylenol) lisinopril 10 mg tablet (Zestril) 10 mg PO DAILY 06/12/22 06/28/22 History meloxicam 15 mg tablet (Mobic) 15 mg PO DAILY 06/12/22 Unknown History omega-3 fatty acids-vitamin E 1 cap PO DAILY 06/12/22 Unknown History 1,000 mg capsule sertraline 50 mg tablet (Zoloft) 50 mg PO DAILY 06/12/22 06/28/22 History amlodipine 5 mg tablet 5 mg PO DAILY 05/11/24 Unknown History buspirone 10 mg tablet 10 mg PO BID 05/11/24 Unknown History nortriptyline 50 mg capsule 75 mg PO QHS 05/11/24 Unknown History rosuvastatin 10 mg tablet 10 mg PO DAILY 05/11/24 Unknown History syringe with needle 1 mL 25 gauge 05/11/24 Unknown History x 1 testosterone cypionate 200 mg/mL 200 mg IM 05/11/24 Unknown History intramuscular oil Allergy/AdvReac Type Severity Reaction Status Date / Time adhesive tape AdvReac Rash Verified 05/11/24 20:21 Surgical History Hx of vasectomy History of surgery on lower extremity Hx of bilateral inguinal hernia repair Hx of skin graft Social History Smoking Status: Former smoker ROS ROS ED Constitutional Constitutional ED: Denies chills or fever(s) Eyes Eyes: Denies blurry vision or change in vision ENT ENT ED: Denies rhinorrhea or sore throat Cardiovascular Cardiovascular: Reports chest pain; Denies palpitations Respiratory/Chest Respiratory/Chest: Denies cough or dyspnea Gastrointestinal Gastrointestinal: Denies nausea or vomiting Genitourinary Genitourinary ED: Denies dysuria or hematuria Musculoskeletal Musculoskeletal: Denies back pain or neck pain Integumentary Denies abscess or rash Neurologic Neurologic: Denies headache(s) or weakness Allergic/Immunologic Allergic/Immunologic ED: Denies mouth swelling or urticaria EXAM Physical Exam Const Vital Signs: 05/11/24 20:18 05/11/24 20:30 Temperature 97.3 F L Temperature Source Temporal Pulse Rate 89 Respiratory Rate 18 Respiratory Effort Normal Blood Pressure 168/102 H Blood Pressure Mean 124 Pulse Ox 97 Oxygen Delivery Method Room Air Positive well nourished and well developed General Appearance ED: well developed and NAD HEENT atraumatic Neck full ROM Chest Wall Chest Narrative: There is tenderness over the left lateral chest wall. There is no bony crepitance or step-off noted. There is no subcutaneous emphysema noted. Resp normal respiratory effort and clear to auscultation bilaterally Cardio regular rhythm Rate: regular rate GI non-tender and non-distended Palpation: soft Neuro oriented x3, CN's II-XII intact bilaterally, moves all extremities, no focal motor deficits and no sensory deficits noted Terrence Coma Scale: document GCS findings Spontaneous Obeys Commands Oriented 15 Sensorium / Orientation: alert Motor Exam: strength 5/5 throughout Psych mental status grossly normal MDM MDM MDM Narrative Medical decision making narrative: Differential diagnosis includes rib fracture, pneumothorax, contusion, muscle strain. X-rays of the left r (more content not included)... Normal [facility] Ribs Uni Min 3V w/PA Cheston 05-11-2024 Ribs Uni Min 3V w/PA Chest [facility] Imaging Services [address] [place] [address] Ribs Uni Min 3V w/PA Chest MR#: [id number] Acct: [id number] Name: KULWANT VALLES Rep #: [id number] : 1975 49 From: Nadir vargas MD PCP: Dr. Jm Joseph MD Status: REG ER Study: Ribs Uni Min 3V w/PA Chest Date of Exam: 05/11 Exam# [id number] Ordering Dr: Robby Xie DO [id number] INDICATION: Trauma EXAMINATION/TECHNIQUE: X-RAY - XR Ribs Unilateral W/ PA Chest Min 3 Views COMPARISON: Prior study dated: 11/12/2011 FINDINGS: SOFT TISSUES: No soft tissue swelling or gas. BONES: No displaced fracture. No sclerotic or destructive changes observed. Degenerative changes at the left glenohumeral joint. VISUALIZED LUNGS: Blunting at the left costophrenic angle.. No pneumothorax. RAD/Ribs Uni Min 3V w/PA Chest IMPRESSION: No evidence of displaced rib fracture. Blunting at the left costophrenic angle may represent a small pleural effusion. Electronically Signed: Nadir Figueredo MD at 22:26 EDT , CC: Dr. Robby Xie, DO; Dr. Jm Joseph MD Frame Runner: Signed Normal [facility] Absolute lymphocyte countOrd ered By: Jm Joseph on 07-30-2023 Lymphocytes Auto (Unsp spec) [#/Vol] 1.22 10*3/uL 0.83-4.51 [facility] Basophil percentageOrdered B y: Jm Joseph on 07-30-2023 Basophils/100 WBC (Bld) 0.5 % 0-[address] [facility] Chloride [Moles/Vol] 100 mmol/L 98-107 [facility] Cholesterol [Mass/Vol] 251 mg/dL <200 [facility] Comment on above: <200 mg/dL Desirable 200-240 mg/dL Borderline >240 mg/dL High Risk Eosinophils/100 WBC (Bld) 0.7 % 0-5 [facility] Glucose [Mass/Vol] 106 mg/dL 74-106 [facility] Comment on above: Fasting Glucose resu lt from 100 to 125 mg/dL suggests IMPAIRED HOMEOSTASIS per A.D.A. criteria. Neutrophils (Bld) [#/Vol] 2.7 10*3/uL 2.0-7.7 [facility] Neutrophils/100 WBC (Bld) 63.5 % 47-70 [facility] Potassium [Moles/Vol] 4.7 mmol/L 3.5-5.1 [facility] Sodium [Moles/Vol] 134 mmol/L 136-145 [facility] Testosterone [Mass/Vol] 146.87 ng/dL [facility] Comment on above: CENTRAL 90% REFERENC E RANGES MALE AGE <50 197.44 - 669.58 ng/dL MALE AGE > or = 50 187.72 - 684.19 ng/dL FEMALE AGE <50 8.38 - 35.01 ng/dL FEMALE AGE > or = 50 <7.00 - 35.92 ng/dL Effective as of 05/30/21 Triglyceride [Mass/Vol] 98 mg/dL <[address] [facility] Comment on above: The drugs N-Acetylcy steine and Metamizole may falsely depress this assay.Serum Triglycerides Reference Interval Normal <150 mg/dL Borderline high 150 - 199 mg/dL High 200 - 499 mg/dL Very High > or = 500 mg/dL WBC (Bld) [#/Vol] 4.3 10*3/uL 4.4-11.0 [facility] Blood erythrocytes count (nu mber/volume)Ordered By: Jm Joseph on 07-30-2023 RBC (Bld) [#/Vol] 5.43 10*6/uL 4.6-6.2 [facility] Blood hemoglobin measurement (mass/volume)Ordered By: Jm Joseph on 07-30-2023 Hemoglobin (Bld) [Mass/Vol] 17.3 g/dL 13.0-16. 5 [facility] Blood lymphocytes/100 leukoc ytesOrdered By: Jm Joseph on 07-30-2023 Lymphocytes/100 WBC (Bld) 28.7 % 19-41 [facility] Blood monocytes/100 leukocyt esOrdered By: Jm Joseph on 07-30-2023 Monocytes/100 WBC (Bld) 6.4 % 0-10 [facility] Blood platelet mean volumeOr dered By: Jm Joseph on 07-30-2023 Platelet mean volume (Bld) [Entitic vol] 10.3 fL 6.2-12.0 [facility] Determination of erythrocyte mean corpuscular volume (MCV)Ordered By: Jm Joseph on 07-30-2023 MCV (RBC) [Entitic vol] 95.4 fL 80-94 [facility] Hematocrit Auto (Bld) [Volum e fraction]Ordered By: Jm Joseph on 07-30-2023 Hematocrit (Bld) [Volume fraction] 51.8 % 40-54 [facility] - Chemistry and C hemistry - challengeOrdered By: Jm Joseph on 07-30-2023 CO2 [Moles/Vol] 28.0 mmol/L 21.0-32.0 [facility] Urea nitrogen/Creatinine [Mass ratio] 37.1 mg/mg 10-20 [facility] - Hematology and Cell countsOrdered By: Jm Joseph on 07-30-2023 Erythrocyte distribution width (RBC) [Entitic vol] 41.2 fL 35.1-43.9 [facility] Erythrocyte distribution width (RBC) [Ratio] 11.8 % 11.6-14.6 [facility] Immature granulocytes/100 WBC (Bld) 0.200 % 0.0-0.9 [facility] Comment on above: IG% - Immature Granu locytes (promyelocytes, myelocytes and metamyelocytes) > 1% indicates that a LEFT SHIFT is Present. MCH (RBC) [Entitic mass] 31.9 pg 27.0-32.0 [facility] Nucleated RBC/100 WBC (Bld) [Ratio] 0 % 0-5 [facility] MCHC Auto (RBC) [Mass/Vol]Or dered By: Jm Joseph on 07-30-2023 MCHC (RBC) [Mass/Vol] 33.4 g/dL 32-36 [facility] No Panel InformationOrdered By: Jm Joseph on 07-30-2023 Estimated GFR (MDRD) Amer 97 mL/min >60 [facility] Comment on above: GFR Calc Estimated GFR (MDRD) Non-Af Amer 80 mL/min >60 [facility] Comment on above: Non- GFR Calc Prostate Specific Antigen Total 0.47 ng/mL 0.0-4.0 [facility] Comment on above: This test was perfor med using the TPSA assay method [facility]. Values obtained with differentassay methods cannot be used interchangably.When changing PSA assays in the course of monitoring apatient, additional sequential testing should be carriedout to confirm baseline values. Platelets bldOrdered By: Penny Joseph on 07-30-2023 Platelets (Bld) [#/Vol] 249 10*3/uL 150-450 [facility] Serum or plasma calcium rafa urement (mass/volume)Ordered By: Jm Joseph on 07-30-2023 Calcium [Mass/Vol] 9.4 mg/dL 8.5-10.1 [facility] Serum or plasma cholesterol in HDL measurement (mass/volume)Ordered By: Jm Joseph on 07-30-2023 Cholesterol in HDL [Mass/Vol] 51 mg/dL >40 [facility] Comment on above: The drugs N-Acetylcy steine and Metamizole may falsely depress this assay. Reference Range HDL <40 mg/dL Low HDL Cholesterol HDL >or= 60 mg/dL High HDL Cholesterol Serum or plasma cholesterol in VLDL measurement (mass/volume)Ordered By: Jm Joseph on 07-30-2023 Cholesterol in VLDL [Mass/Vol] 20 mg/dL 5-40 [facility] Serum or plasma creatinine m easurement (mass/volume)Ordered By: Jm Joseph on 07-30-2023 Creatinine [Mass/Vol] 1.05 mg/dL 0.70-1.30 [facility] Comment on above: The validity of the calculated GFR & GFRAA in patients over 70 years has not been determined. Clinical correlation is essential. Serum or plasma low density lipoprotein (LDL) cholesterol measurement (mass/volume)Ordered By: Jm Joseph on 07-30-2023 Cholesterol in LDL [Mass/Vol] 180 mg/dL 0-130 [facility] Serum or plasma urea nitroge n measurement (mass/volume)Ordered By: Jm Joseph on 07-30-2023 Urea nitrogen [Mass/Vol] 39 mg/dL 7-18 [facility] Thin prep Papanicolaou smear with manual screeningOrdered By: Jm Joseph on 07-30-2023 Thin prep Papanicolaou smear with manual screening 6 5-15 [facility] Basophil percentageOrdered B y: Dr. Joseph on 01-29-2023 Chloride [Moles/Vol] 105 mmol/L 98-107 [facility] Cholesterol [Mass/Vol] 187 mg/dL <200 [facility] Comment on above: <200 mg/dL Desirable 200-240 mg/dL Borderline >240 mg/dL High Risk Glucose [Mass/Vol] 96 mg/dL 74-106 [facility] Potassium [Moles/Vol] 4.2 mmol/L 3.5-5.1 [facility] Sodium [Moles/Vol] 138 mmol/L 136-145 [facility] Triglyceride [Mass/Vol] 179 mg/dL <[address] [facility] Comment on above: The drugs N-Acetylcy steine and Metamizole may falsely depress this assay.Serum Triglycerides Reference Interval Normal <150 mg/dL Borderline high 150 - 199 mg/dL High 200 - 499 mg/dL Very High > or = 500 mg/dL Laboratory - Chemistry and C hemistry - challengeOrdered By: Dr. Joseph on 01-29-2023 CO2 [Moles/Vol] 29.0 mmol/L 21.0-32.0 [facility] Urea nitrogen/Creatinine [Mass ratio] 26.3 mg/mg 10-20 [facility] No Panel InformationOrdered By: Dr. Joseph on 01-29-2023 Estimated GFR (MDRD) Amer 85 mL/min >60 [facility] Comment on above: GFR Calc Estimated GFR (MDRD) Non-Af Amer 70 mL/min >60 [facility] Comment on above: Non- GFR Calc Serum or plasma calcium rafa urement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 Attending Provider, Referring Provider Active Team Status: Inactive Member Role Status Dates Dr. Jm Joseph MD Primary Care Provider Active Dr. Elba Dang MD Attending Provider Active Team Status: Active Member Role Status Dates Dr. Jm Joseph MD Primary Care Provider Active Dr. Danie Levin MD Attending Provider, Referring Provider Active Team Status: Inactive Member Role Status Dates Dr. Jm Joseph MD Primary Care Provider Active Dr. Danie Levin MD Attending Provider, Referring Provider Active Team Status: Active Member Role Status Dates Dr. Jm Joseph MD Primary Care Provider Active Team Status: Inactive Member Role Status Dates Dr. Jm Joseph MD Primary Care Provider Active Start: November 06, 2024 End: November 06, 2024 Dr. Clemente Zhou MD Attending Provider Active Start: November 06, 2024 End: November 06, 2024 Dr. Clemente Zhou MD Referring Provider Active Start: November 06, 2024 End: November 06, 2024 Team Status: Inactive Member Role Status Dates Dr. Jm Joseph MD Primary Care Provider Active Start: December 03, 2024 End: December 03, 2024 Dr. Jm Joseph MD Attending Provider Active Start: December 03, 2024 End: December 03, 2024 Team Status: Inactive Member Role Status Dates Dr. Jm Joseph MD Primary Care Provider Active Start: January 04, 2025 End: January 04, 2025 Dr. Clemente Zhou MD Attending Provider Active Start: January 04, 2025 End: January 04, 2025 Dr. Clemente Zhou MD Referring Provider Active Start: January 04, 2025 End: January 04, 2025 Dr. Joselito Jeffrey MD Other Provider Active S tart: January 04, 2025 End: January 04, 2025 Team Status: Inactive Member Role Status Dates Dr. Jm Joseph MD Primary Care Provider Active Start: March 20, 2025 End: March 20, 2025 Dr. Jm Joseph MD Attending Provider Active Start: March 20, 2025 End: March 20, 2025 Dr. Jm Joseph MD Referring Provider Active Start: March 20, 2025 End: March 20, 2025 Team Status: Active Member Role/Relationship Status Dates Dr. Jm Joseph MD Primary Care Provider Active Team Status: Inactive Member Role/Relationship Status Dates Dr. Jm Joseph MD Primary Care Provider Active Start: March 20, 2025 End: March 20, 2025 Dr. Jm Joseph MD Attending Provider Active Start: March 20, 2025 End: March 20, 2025 Dr. Jm Joseph MD Referring Provider Active Start: March 20, 2025 End: March 20, 2025 Team Status: Inactive Member Role/Relationship Status Dates Dr. Jm Joseph MD Primary Care Provider Active Start: April 30, 2025 End: April 30, 2025 Lluvia Villarreal BUSINESS EXECUTIVE, BUSINESS EXECUTIVE-C Attending Provider Active S tart: April 30, 2025 End: April 30, 2025 Lluvia Villarreal NP, BUSINESS EXECUTIVE-C Referring Provider Active S tart: April 30, 2025 End: April 30, 2025 Team Status: Active Member Role/Relationship Status Dates Dr. Oz Jackson MD Attending Provider Active Start: April 30, 2025 Lluvia Villarreal NP, BUSINESS EXECUTIVE-C Referring Provider Active S tart: April 30, 2025 FOR RECORDS PERTAINING TO PATIENTS WHO ARE OR HAVE BEEN ENROLLED IN A CHEMICAL DEPENDENCY/SUBSTANCEABUSE PROGRAM, SOME INFORMATION MAY BE OMITTED. This clinical summary was aggregated from multiple sources. Caution should be exercised in using it in the provision of clinical care. This summary normalizes information from multiple sources, and as a consequence, information in this document may materially change the coding, format and clinical context of patient data. In addition, data may be omitted in some cases. CLINICAL DECISIONS SHOULD BE BASED ON THE PRIMARY CLINICAL RECORDS. [facility]. provides no warranty or guarantee of the accuracy or completeness of information in this document.
[2025-07-10 08:14] LABS: Hematocrit 47.1 % (40-54); Hemoglobin 15.9 g/dL (13.0-16.5); Mean Corp Hgb Conc 33.8 g/dL (32-36); Mean Corpuscular Volume 93.6 fL (80-94); Mean Platelet Vol. 10.2 fl (6.2-12.0); Platelet Count 216 K/mm3 (150-450); RBC Distribution Width CV 12.7 % (11.6-14.6); RBC Distribution Width SD 43.8 fl (35.1-43.9); Red Blood Count 5.03 M/mm3 (4.6-6.2); White Blood Count 4.7 K/mm3 (4.4-11.0)
[2025-07-10 08:41] LABS: Anion Gap 10 (5-15); BUN 27 mg/dL (4-19); BUN/Creat Ratio 22.3 RATIO (10-20); Calcium,Total 9.4 mg/dL (7.6-11.0); Carbon Dioxide 24.8 mmol/L (21.0-32.0); Chloride 101 mmol/L (98-108); Cholesterol 130 mg/dL (<=200); Glucose 129 mg/dL (70-99); Low Density Lipoprotein Calc. 75 mg/dL; Potassium 5.2 mmol/L (3.3-5.1); Triglycerides 121 mg/dL; Very Low Density Lipoprotein 24 mg/dL (5-40); cholesterol:hdl ratio screen 4.15
== END | disposition home or self-care (01) ==
LOC: LAB 07:32
PROVIDERS: PCP Family Medicine; Referring Provider Family Medicine; Visit Provider Family Medicine
DX: I10 Essential (primary) hypertension (principal); E29.1 Testicular hypofunction
CPT/HCPCS: 36415; 80048; 80061; 84403; 85027

== ENCOUNTER → 2025-07-13 | Outpatient (CLI) | payer OTHER, SELFPAY ==
--- OUTSIDE RECORDS SUMMARY | 2025-07-13 06:14 | XMS RPT_ITS | CCD ---
Author Organization [facility] Care Team Providers Care Database Administration Manager Name Role Phone Unavailable Primary Care Provider Dr. Jm Ahmadi Primary Care Provider Dr. Christ Rivero Attending Provider Dr. Kosntantin Alas Referring Provider KONSTANTIN ALAS DO Attending [...] Dr. Jm Ahmadi MD Primary Care Provider [phone] Dr. Clemente Zhou MD Attending Provider Dr. Clemente Zhou MD Referring Provider Dr. Jm Joseph MD Attending Provider Wojciech MONSALVE, Dr. Yee Other Provider [phone] Jm Joseph MD Primary Care Provider [phone] Dr. Clemente Zhou MD Attending Provider Abelardo MONSALVE, Dr. Cornejo Referring Provider Jake MONSALVE, Dr. Oneal Referring Provider Jake MONSALVE, Dr. Oneal Primary Care Provider [phone] Jake MONSALVE, Dr. Oneal Attending Provider Phil WEB DEVELOPMENT DIRECTOR-C, Lluvia Attending Provider Phil WEB DEVELOPMENT DIRECTOR-C, Lluvia Referring Provider Renetta MONSALVE, Dr. Oz Lamas Attending Provider Jake, Jm Primary Care Unavailable Basali, Clemente Attending Unavailable Basali, Clemente Referring Unavailable WojciechJoselito Consulting Unavailable Joseph, Jm Attending Unavailable Joseph, Jm Primary Care Unavailable Basali, Clemente Attending Unavailable Basali, Clemente Referring Unavailable Joseph, Jm Primary Care Unavailable Joseph, Jm Attending Unavailable Joseph, Jm Referring Unavailable Joseph, Jm Primary Care Unavailable Joseph, Jm Primary Care Unavailable Phil WEB DEVELOPMENT DIRECTOR, Lluvia Attending Unavailable Phil WEB DEVELOPMENT DIRECTOR, Lluvia Referring Unavailable Joseph, Jm Attending Unavailable Joseph, Jm Referring Unavailable Joseph, Jm Primary Care Unavailable Allergies Allergy Classification Reported Allergen(s) Allergy Type Date of Onset Reaction(s) Facility (2 sources) Adhesive Tape-Silicones Propensity to adverse reactions to drug 5 Rash, Itching [facility] Work Phone: (7 sources) Adhesive Tape; Translations: [adhesive tape] Propensity to adverse reactions 2 Rash [facility] Medications Current Medications Medication Drug Class(es) Dates [...] 4 HOURS NEEDED September 08, 2013 1:00pm [id number] 200 actuat albuterol 0.09 mg/actuat metered dose [...] PO AT BEDTIME May 11, 2024 12:00am Latham-3 Fatty Acids-Vitamin E (Fish Oil) 1,000 mg Capsule (12 sources) Start: Latham-3 Fatty Acids-Vitamin E (Fish Oil) 1,000 mg Capsule Active 1 NMA PO DAILY June 12, 2022 12:00am Start: 06-12-2022 take 1 capsule by mo uth once daily Latham-3 Fatty Acids-Vitamin E (Fish Oil) 1,000 mg Capsule Active 1 CAP PO DAILY June 11, 2022 11:00pm Start: 06-12-2022 take 1 capsule by mo uth once daily Latham-3 Fatty Acids-Vitamin E (Fish Oil) 1,000 mg [...] fall, initial encounter] 05-19-2024 Episodic Essential hypertension (2 sources) Essential (primary) hypertension; Translations: [Essential (primary) hypertension] Onset: 12-21-2024 Chronic Other connective tissue disease (1 source) Other specified soft tissue disorders; Translations: [Other specified soft tissue disorders] Onset: 05-06-2025 Episodic Other endocrine disorders (1 source) Testicular hypofunction; Translations: [Testicular hypofunction] Onset: 07-10-2025 Chronic Other non-traumatic joint disorders (1 source) Pain in wrist; Translations: [Pain in left wrist] 12-13-2021 Episodic Substance-related disorders (1 source) Opioid dependence, uncomplicated; Translations: [Opioid dependence, uncomplicated] Onset: 12-01-2024 Chronic Superficial injury; contusion (3 sources) Contusion of chest; Translations: [Contusion of unspecified front wall of thorax, initial encounter] 05-19-2024 Episodic Past or Other Problems Problem Classification Problem Date Documented Da te Episodic/Chronic Other connective tissue disease (2 sources) Prepatellar bursitis; Translations: [Prepatellar bursitis, unspecified knee] Onset: 09-14-2005 09-14-2005 Episodic Results Test Name Value Interpretation Reference Range Facility Basic Metabolic Profile (BMP )on 07-10-2025 BUN/CRE 22.3 RATIO High 10-20 [facility] Comment on above: Performed By: #### L 3100.5310, L501.9520, L503.0106, L400.2011, L500.4050, L500.4100, L502.0500, L100.0100, L506.0400, L506.1001 #### [facility] [address] [place], [address] Calcium [Mass/Vol] 9.4 mg/dL Normal 7.6-11.0 [facility] Comment on above: Performed By: #### L 3100.5310, L501.9520, L503.0106, L400.2011, L500.4050, L500.4100, L502.0500, L100.0100, L506.0400, L506.1001 #### [facility] [address] [place], [address] Chloride [Moles/Vol] 101 mmol/L Normal 98-108 [facility] Comment on above: Performed By: #### L 3100.5310, L501.9520, L503.0106, L400.2011, L500.4050, L500.4100, L502.0500, L100.0100, L506.0400, L506.1001 #### [facility] [address] [place], [place], [phone] (854) CO2 [Moles/Vol] 24.8 mmol/L Normal 21.0-32.0 [facility] Comment on above: Performed By: #### L 3100.5310, L501.9520, L503.0106, L400.2011, L500.4050, L500.4100, L502.0500, L100.0100, L506.0400, L506.1001 #### [facility] [address] [place], [address] (466) Creatinine [Mass/Vol] 1.22 mg/dL High 0.70-1.20 [facility] Comment on above: Performed By: #### L 3100.5310, L501.9520, L503.0106, L400.2011, L500.4050, L500.4100, L502.0500, L100.0100, L506.0400, L506.1001 #### [facility] [address] [place], [address] (561) GAP 10 Normal 5-15 [facility] Comment on above: Performed By: #### L 3100.5310, L501.9520, L503.0106, L400.2010, L500.4050, L500.4100, L502.0500, L100.0100, L506.0400, L506.1001 #### [facility] [address] [place], [place], [phone] (611) GFR/1.73 sq M.predicted among non-blacks MDRD (S/P/Bld) [Vol rate/Area] 73 mL/min/{1.73_m2} Normal >60 [facility] Comment on above: Result Comment: mL/m in/1.73m2 CKD-EPI Creatinine Equation (2020) Performed By: #### L 3100.5310, L501.9520, L503.0106, L400.2011, L500.4050, L500.4100, L502.0500, L100.0100, L506.0400, L506.1001 #### [facility] [address] [place], [address] Glucose [Mass/Vol] 129 mg/dL High 70-99 [facility] Comment on above: Performed By: #### L 3100.5310, L501.9520, L503.0106, L400.2010, L500.4050, L500.4100, L502.0500, L100.0100, L506.0400, L506.1001 #### [facility] [address] [place], [address] Potassium [Moles/Vol] 5.2 mmol/L High 3.3-5.1 [facility] Comment on above: Performed By: #### L 3100.5310, L501.9520, L503.0106, L400.2010, L500.4050, L500.4100, L502.0500, L100.0100, L506.0400, L506.1001 #### [facility] [address] [place], [address] Sodium [Moles/Vol] 136 mmol/L Normal 133-145 [facility] Comment on above: Performed By: #### L 3100.5310, L501.9520, L503.0106, L400.2010, L500.4050, L500.4100, L502.0500, L100.0100, L506.0400, L506.1001 #### [facility] [address] [place], [address] Urea nitrogen [Mass/Vol] 27 mg/dL High 4-19 [facility] Comment on above: Performed By: #### L 3100.5310, L501.9520, L503.0106, L400.2011, L500.4050, L500.4100, L502.0500, L100.0100, L506.0400, L506.1001 #### [facility] [address] [place], [place], [phone] CBC-Complete Blood Cnt No Di ffon 07-10-2025 Erythrocyte distribution width (RBC) [Ratio] 12.7 % Normal 11.6-14.6 [facility] Comment on above: Performed By: #### L 3100.5310, L501.9520, L503.0106, L400.2010, L500.4050, L500.4100, L502.0500, L100.0100, L506.0400, L506.1001 #### [facility] [address] [place], [address] Hematocrit (Bld) [Volume fraction] 47.1 % Normal 40-54 [facility] Comment on above: Performed By: #### L 3100.5310, L501.9520, L503.0106, L400.2010, L500.4050, L500.4100, L502.0500, L100.0100, L506.0400, L506.1001 #### [facility] [address] [place], [place], [id number] Hemoglobin (Bld) [Mass/Vol] 15.9 g/dL Normal 13.0-16. 5 [facility] Comment on above: Performed By: #### L 3100.5310, L501.9520, L503.0106, L400.2010, L500.4050, L500.4100, L502.0500, L100.0100, L506.0400, L506.1001 #### [facility] [address] [place], [address] MCH (RBC) [Entitic mass] 31.6 pg Normal 27.0-32.0 [facility] Comment on above: Performed By: #### L 3100.5310, L501.9520, L503.0106, L400.2010, L500.4050, L500.4100, L502.0500, L100.0100, L506.0400, L506.1001 #### [facility] [address] [place], [address] MCHC (RBC) [Mass/Vol] 33.8 g/dL Normal 32-36 [facility] Comment on above: Performed By: #### L 3100.5310, L501.9520, L503.0106, L400.2010, L500.4050, L500.4100, L502.0500, L100.0100, L506.0400, L506.1001 #### [facility] [address] [place], [address] MCV (RBC) [Entitic vol] 93.6 fL Normal 80-94 [facility] Comment on above: Performed By: #### L 3100.5310, L501.9520, L503.0106, L400.2010, L500.4050, L500.4100, L502.0500, L100.0100, L506.0400, L506.1001 #### [facility] [address] [place], [address] Platelet mean volume (Bld) [Entitic vol] 10.2 fL Normal 6.2-12.0 [facility] Comment on above: Performed By: #### L 3100.5310, L501.9520, L503.0106, L400.2010, L500.4050, L500.4100, L502.0500, L100.0100, L506.0400, L506.1001 #### [facility] [address] [place], [address] Platelets (Bld) [#/Vol] 216 10*3/uL Normal 150-450 [facility] Comment on above: Performed By: #### L 3100.5310, L501.9520, L503.0106, L400.2011, L500.4050, L500.4100, L502.0500, L100.0100, L506.0400, L506.1001 #### [facility] [address] [place], [address] RBC (Bld) [#/Vol] 5.03 10*6/uL Normal 4.6-6.2 [facility] Comment on above: Performed By: #### L 3100.5310, L501.9520, L503.0106, L400.2010, L500.4050, L500.4100, L502.0500, L100.0100, L506.0400, L506.1001 #### [facility] [address] [place], [address] RDW SD 43.8 fl Normal 35.1-43.9 [facility] Comment on above: Performed By: #### L 3100.5310, L501.9520, L503.0106, L400.2010, L500.4050, L500.4100, L502.0500, L100.0100, L506.0400, L506.1001 #### [facility] [address] [place], [address] WBC (Bld) [#/Vol] 4.7 10*3/uL Normal 4.4-11.0 [facility] Comment on above: Performed By: #### L 3100.5310, L501.9520, L503.0106, L400.2010, L500.4050, L500.4100, L502.0500, L100.0100, L506.0400, L506.1001 #### [facility] [address] [place], [address] L509.3001on 07-10-2025 Testosterone [Mass/Vol] 729.00 ng/dL Normal 300-890 [facility] Comment on above: Performed By: #### L 3100.5310, L501.9520, L503.0106, L400.2010, L500.4050, L500.4100, L502.0500, L100.0100, L506.0400, L506.1001 #### [facility] [address] [place], [address] Lipid Profileon 07-10-2025 CHOL:HDL 4.15 Normal [facility] Comment on above: Performed By: #### L 3100.5310, L501.9520, L503.0106, L400.2010, L500.4050, L500.4100, L502.0500, L100.0100, L506.0400, L506.1001 #### [facility] [address] [place], [address] Cholesterol [Mass/Vol] 130 mg/dL Normal <=200 [facility] Comment on above: Result Comment: Chol esterol level, Desirable <200 mg/dL Borderline high cholesterol 200-239 mg/dL High cholesterol >=240 mg/dL Recommendations of the NCEP Adult Treatment Panel for the following risk-cutoff thresholds for the [place] population. Performed By: #### L 3100.5310, L501.9520, L503.0106, L400.2010, L500.4050, L500.4100, L502.0500, L100.0100, L506.0400, L506.1001 #### [facility] [address] [place], [address] Cholesterol in HDL [Mass/Vol] 31 mg/dL Low [facility] Comment on above: Result Comment: Shi onal Cholesterol Education Program (NCEP) guidelines: <40 mg/dL: Low HDL-cholesterol (major risk factor for CHD) >= 60 mg/dL: High HDL-cholesterol (negative risk factor for CHD) HDL-cholesterol is affected by a number of factors, e.g. smoking, exercise, hormones, sex and age. Performed By: #### L 3100.5310, L501.9520, L503.0106, L400.2010, L500.4050, L500.4100, L502.0500, L100.0100, L506.0400, L506.1001 #### [facility] [address] [place], [address] Cholesterol in LDL [Mass/Vol] 75 mg/dL Normal [facility] Comment on above: Result Comment: Bord rhyoch=443-112 mg/dL Higher Urlm=770 mg/dL or greater Friedwald Equation for LDL-C Performed By: #### L 3100.5310, L501.9520, L503.0106, L400, L500.4050, L500.4100, L502.0500, L100.0100, L506.0400, L506.1001 #### [facility] [address] [place], [address] Cholesterol in VLDL [Mass/Vol] 24 mg/dL Normal 5-40 [facility] Comment on above: Performed By: #### L 3100.5310, L501.9520, L503.0106, L400.2010, L500.4050, L500.4100, L502.0500, L100.0100, L506.0400, L506.1001 #### [facility] [address] [place], [address] Triglyceride [Mass/Vol] 121 mg/dL Normal [facility] Comment on above: Result Comment: The drugs N-Acetylcysteine and Metamizole may falsely depress this assay. Normal range: <150 mg/dL Borderline High: 150-199 mg/dL High: 200-499 mg/dL Very High: >500 mg/dL Performed By: #### L 3100.5310, L501.9520, L503.0106, L400.2011, L500.4050, L500.4100, L502.0500, L100.0100, L506.0400, L506.1001 #### [facility] [address] [place], [address] Venous Duplex US, Unilateral on 04-30-2025 Venous Duplex US, Unilateral [facility] [address] [place] [address] Venous Duplex US, Unilateral 04/30/25 1604 MR#: [id number] Acct: [id number] Name: KULWANT VALLES Rep #: [id number] : 1975 50 From: Oz Jackson MD Attending Dr: SHRUTHI Mistry Status: REG CLI Ordering Dr: Lluvia Villarreal NP WEB DEVELOPMENT DIRECTOR-C Date: 04/30/25 Location: [facility] Sex: M C [...] called and/or faxed to Lluvia MAJANOC @ [phone]. VL/Venous Duplex US, Unilateral Interpretation Summary Deep [...] RVT 04/30/251922 Date Oz Jackson MD CC: WEB DEVELOPMENT DIRECTOR-C Lluvia Villarreal; Dr. Jm Joseph MD Date Dictated: 04/30/25 160 Date Transcribed: 04/30/251922 [employer]: Signed Normal [facility] Venous duplex ultrasound rep ortOrdered By: Oz Jackson on 04-30-2025 US Vein [facility] [address] [place] [address] Venous Duplex US, Unilateral 04/30/251603 MR#: [id number] Acct: [id number] Name: KULWANT VALLES Rep #:[id number] : 1975 50 From: Oz Jackson MD Attending Dr: SHRUTHI Mistry [facility] tus: REG CLI Ordering Dr: Lluvia Villarreal [...] called and/or faxed to Lluvia HAWKINS @ [phone]. VL/Venous Duplex US, Unilateral Interpretation Summary Deep [...] By: Suzanne Hardin, RAVI, RVT 04/30/251922 Date _ Oz Jackson MD CC: WEB DEVELOPMENT DIRECTOR-C Lluvia Villarreal; Dr. Jm Joseph MD ~ Date Dictated: 04/30/251603 Date Transcribed: 04/30/251922 [employer]: Signed [facility] Work Phone: Testosterone, Total / Freeon 03-26-2025 TESTOSTER,FREE 32.35 ng/dL Abnormal 5.00-21.00 [facility] Comment on above: Order Comment: 84553 3 URINE TOXICOLOGY Performed By: #### L 505.5000, L3410.9999 #### [facility] [address] [place], [address] TESTOSTER,TOTAL 872 ng/dL Normal 264-916 [facility] Comment on above: Order Comment: 83135 3 URINE TOXICOLOGY Result Comment: Adul t male reference interval is based on a population of healthy nonobese males (BMI <30) between 19 and 39 years old. easton De La Cruz.al. JCEM 2017,102;4377-4782. PMID: [id number]. Performed By: #### L 505.5000, L3410.9999 #### [facility] [address] [place], [place], [id number] TESTOSTERONE,%F 3.71 Normal 1.50-4.20 [facility] Comment on above: Order Comment: 59749 3 URINE TOXICOLOGY Result Comment: Perf ormed at: - [facility] [id number] Driver Courier: Jens Guardado PhD, Phone: [phone] Performed at: [facility] [id number] Driver Courier: Mookie Camargo MD, Phone: [phone] Performed By: #### L 505.5000, L3410.9999 #### [facility] [address] [place], [place], [id number] Absolute lymphocyte countOrd ered By: Jm Joseph on 03-20-2025 Lymphocytes Auto (Unsp spec) [#/Vol] 1.22 10*3/uL 0.83-4.51 [facility] Absolute neutrophil countOrd ered By: Jm Joseph on 03-20-2025 Neutrophils (Bld) [#/Vol] 2.8 10*3/uL 2.0-7.7 [facility] Anion gap in Serum or Plasma Ordered By: Jm Joseph on 03-20-2025 Anion gap [Moles/Vol] 9 mmol/L 5-15 [facility] Automated lymphocyte count a s percentage of total leukocytesOrdered By: Jm Joseph on 03-20-2025 Lymphocytes/100 WBC Auto (Unsp spec) 26.8 % 19-41 [facility] BUN/creatinine ratioOrdered By: Jm Joseph on 03-20-2025 Urea nitrogen/Creatinine [Mass ratio] 18.8 mg/mg 10-20 [facility] Basophil percentageOrdered B y: Jm Joseph on 03-20-2025 Basophils/100 WBC (Bld) 0.7 % 0-1 [facility] Bilirubin Test strip Ql (U)O rdered By: Jm Joseph on 03-20-2025 Bilirubin Ql (U) Negative Negative [facility] Bilirubin, totalOrdered By: Jm Joseph on 03-20-2025 Bilirubin [Mass/Vol] 0.51 mg/dL 0.00-1.30 [facility] CBC W/Diff, Automatedon 03-04 Absolute Lymph 1.22 X10 3/uL Normal 0.83-4.51 [facility] Comment on above: Performed By: #### L 3100.5310, L501.9520, L503.0106, L400.2010, L500.4050, L500.4100, L502.0500, L100.0100, L506.0400, L506.1001 #### [facility] [address] [place], [address] Absolute Neut 2.8 X10 3/uL Normal 2.0-7.7 [facility] Comment on above: Performed By: #### L 3100.5310, L501.9520, L503.0106, L400.2010, L500.4050, L500.4100, L502.0500, L100.0100, L506.0400, L506.1001 #### [facility] [address] [place], [place], [phone] ([address] Basophils/100 WBC (Bld) 0.7 % Normal 0-1 [facility] Comment on above: Performed By: #### L 3100.5310, L501.9520, L503.0106, L400.2010, L500.4050, L500.4100, L502.0500, L100.0100, L506.0400, L506.1001 #### [facility] [address] [place], [address] Eosinophils/100 WBC (Bld) 1.1 % Normal 0-5 [facility] Comment on above: Performed By: #### L 3100.5310, L501.9520, L503.0106, L400.2010, L500.4050, L500.4100, L502.0500, L100.0100, L506.0400, L506.1001 #### [facility] [address] [place], [address] Erythrocyte distribution width (RBC) [Ratio] 12.1 % Normal 11.6-14.6 [facility] Comment on above: Performed By: #### L 3100.5310, L501.9520, L503.0106, L400.2010, L500.4050, L500.4100, L502.0500, L100.0100, L506.0400, L506.1001 #### [facility] [address] [place], [place], [phone] (089) Hematocrit (Bld) [Volume fraction] 45.4 % Normal 40-54 [facility] Comment on above: Performed By: #### L 3100.5310, L501.9520, L503.0106, L400.2010, L500.4050, L500.4100, L502.0500, L100.0100, L506.0400, L506.1001 #### [facility] [address] [place], [place], [id number] (783) Hemoglobin (Bld) [Mass/Vol] 15.5 g/dL Normal 13.0-16. 5 [facility] Comment on above: Performed By: #### L 3100.5310, L501.9520, L503.0106, L400.2010, L500.4050, L500.4100, L502.0500, L100.0100, L506.0400, L506.1001 #### [facility] [address] [facility] [place], [place], [phone] (688) IG% 0.200 Normal 0.0-0.9 [facility] Comment on above: Result Comment: IG% - Immature Granulocytes (promyelocytes, myelocytes and metamyelocytes) > 1% indicates that a LEFT SHIFT is Present. Performed By: #### L 3100.5310, L501.9520, L503.0106, L400.2010, L500.4050, L500.4100, L502.0500, L100.0100, L506.0400, L506.1001 #### [facility] [address] [place], [address] Lymphocytes/100 WBC (Bld) 26.8 % Normal 19-41 [facility] Comment on above: Performed By: #### L 3100.5310, L501.9520, L503.0106, L400.2010, L500.4050, L500.4100, L502.0500, L100.0100, L506.0400, L506.1001 #### [facility] [address] [place], [address] MCH (RBC) [Entitic mass] 31.8 pg Normal 27.0-32.0 [facility] Comment on above: Performed By: #### L 3100.5310, L501.9520, L503.0106, L400.2010, L500.4050, L500.4100, L502.0500, L100.0100, L506.0400, L506.1001 #### [facility] [address] [facility], [address] MCHC (RBC) [Mass/Vol] 34.1 g/dL Normal 32-36 [facility] Comment on above: Performed By: #### L 3100.5310, L501.9520, L503.0106, L400.2010, L500.4050, L500.4100, L502.0500, L100.0100, L506.0400, L506.1001 #### [facility] [address] [place], [address] MCV (RBC) [Entitic vol] 93.2 fL Normal 80-94 [facility] Comment on above: Performed By: #### L 3100.5310, L501.9520, L503.0106, L4.2010, L500.4050, L500.4100, L502.0500, L100.0100, L506.0400, L506.1001 #### [facility] [address] [place], [address] Monocytes/100 WBC (Bld) 10.7 % High 0-10 [facility] Comment on above: Performed By: #### L 3100.5310, L501.9520, L503.0106, L400.2010, L500.4050, L500.4100, L502.0500, L100.0100, L506.0400, L506.1001 #### [facility] [address] [place], [address] Neutrophils/100 WBC (Bld) 60.5 % Normal 47-70 [facility] Comment on above: Performed By: #### L 3100.5310, L501.9520, L503.0106, L400.2010, L500.4050, L500.4100, L502.0500, L100.0100, L506.0400, L506.1001 #### [facility] [address] [facility], [address] Nucleated RBC (Bld) [#/Vol] 0 10*3/uL Normal 0-5 [facility] Comment on above: Performed By: #### L 3100.5310, L501.9520, L503.0106, L400.2010, L500.4050, L500.4100, L502.0500, L100.0100, L506.0400, L506.1001 #### [facility] [address] [facility], [address] Platelet mean volume (Bld) [Entitic vol] 9.9 fL Normal 6.2-12.0 [facility] Comment on above: Performed By: #### L 3100.5310, L501.9520, L503.0106, L400.2011, L500.4050, L500.4100, L502.0500, L100.0100, L506.0400, L506.1001 #### [facility] [address] [place], [address] Platelets (Bld) [#/Vol] 207 10*3/uL Normal 150-450 [facility] Comment on above: Performed By: #### L 3100.5310, L501.9520, L503.0106, L400.2011, L500.4050, L500.4100, L502.0500, L100.0100, L506.0400, L506.1001 #### [facility] [address] [place], [address] RBC (Bld) [#/Vol] 4.87 10*6/uL Normal 4.6-6.2 [facility] Comment on above: Performed By: #### L 3100.5310, L501.9520, L503.0106, L400.2010, L500.4050, L500.4100, L502.0500, L100.0100, L506.0400, L506.1001 #### [facility] [address] [place], [address] RDW SD 41.5 fl Normal 35.1-43.9 [facility] Comment on above: Performed By: #### L 3100.5310, L501.9520, L503.0106, L400.2010, L500.4050, L500.4100, L502.0500, L100.0100, L506.0400, L506.1001 #### [facility] [address] [place], [address] WBC (Bld) [#/Vol] 4.6 10*3/uL Normal 4.4-11.0 [facility] Comment on above: Performed By: #### L 3100.5310, L501.9520, L503.0106, L400.2011, L500.4050, L500.4100, L502.0500, L100.0100, L506.0400, L506.1001 #### [facility] [address] [facility] [place], [place], [id number] Calculated very low density lipoprotein (VLDL) cholesterol measurementOrdered By: Jm Joseph on 03-20-2025 Calculated very low density lipoprotein (VLDL) cholesterol measurement 19 mg/dL 5-40 [facility] Carbon dioxide, total [Moles /volume] in Central venous bloodOrdered By: Jm Joseph on 03-20-2025 CO2 [Moles/Vol] 26.5 mmol/L 21.0-32.0 [facility] Chloride assayOrdered By: Lamin Joseph on 03-20-2025 Chloride [Moles/Vol] 104 mmol/L 98-108 [facility] Comprehensive Metabolic Prof ilon 03-20-2025 Albumin [Mass/Vol] 4.4 g/dL Normal 3.5-5.0 [facility] Comment on above: Performed By: #### L 3100.5310, L501.9520, L503.0106, L400.2010, L500.4050, L500.4100, L502.0500, L100.0100, L506.0400, L506.1001 #### [facility] [address] [facility] [place] [address], [place], [id number] Albumin/Globulin [Mass ratio] 1.8 {ratio} Normal 0.9-2.4 [facility] Comment on above: Performed By: #### L 3100.5310, L501.9520, L503.0106, L400.2011, L500.4050, L500.4100, L502.0500, L100.0100, L506.0400, L506.1001 #### [facility] [address] [place], [place], [id number] ALK PHOS 62 U/L Normal 40-129 [facility] Comment on above: Performed By: #### L 3100.5310, L501.9520, L503.0106, L400.2011, L500.4050, L500.4100, L502.0500, L100.0100, L506.0400, L506.1001 #### [facility] [address] [place], [place], [id number] (841) ALT [Catalytic activity/Vol] 27 U/L Normal <=46 [facility] Comment on above: Performed By: #### L 3100.5310, L501.9520, L503.0106, L400.2010, L500.4050, L500.4100, L502.0500, L100.0100, L506.0400, L506.1001 #### [facility] [address] [place], [place], [phone] (047) AST [Catalytic activity/Vol] 28 U/L Normal <=37 [facility] Comment on above: Performed By: #### L 3100.5310, L501.9520, L503.0106, L400.2010, L500.4050, L500.4100, L502.0500, L100.0100, L506.0400, L506.1001 #### [facility] [address] [place], [place], [id number] Bilirubin [Mass/Vol] 0.51 mg/dL Normal 0.00-1.30 [facility] Comment on above: Performed By: #### L 3100.5310, L501.9520, L503.0106, L400.2010, L500.4050, L500.4100, L502.0500, L100.0100, L506.0400, L506.1001 #### [facility] [address] [place], [address] BUN/CRE 18.8 RATIO Normal 10-20 [facility] Comment on above: Performed By: #### L 3100.5310, L501.9520, L503.0106, L400.2010, L500.4050, L500.4100, L502.0500, L100.0100, L506.0400, L506.1001 #### [facility] [address] [place], [address] Calcium [Mass/Vol] 8.8 mg/dL Normal 7.6-11.0 [facility] Comment on above: Performed By: #### L 3100.5310, L501.9520, L503.0106, L400.2010, L500.4050, L500.4100, L502.0500, L100.0100, L506.0400, L506.1001 #### [facility] [address] [facility], [address] Chloride [Moles/Vol] 104 mmol/L Normal 98-108 [facility] Comment on above: Performed By: #### L 3100.5310, L501.9520, L503.0106, L400.2010, L500.4050, L500.4100, L502.0500, L100.0100, L506.0400, L506.1001 #### [facility] [address] [place], [address] CO2 [Moles/Vol] 26.5 mmol/L Normal 21.0-32.0 [facility] Comment on above: Performed By: #### L 3100.5310, L501.9520, L503.0106, L400.2010, L500.4050, L500.4100, L502.0500, L100.0100, L506.0400, L506.1001 #### [facility] [address] [facility], [address] Creatinine [Mass/Vol] 1.21 mg/dL High 0.70-1.20 [facility] Comment on above: Performed By: #### L 3100.5310, L501.9520, L503.0106, L4, L500.4050, L500.4100, L502.0500, L100.0100, L506.0400, L506.1001 #### [facility] [address] [place], [address] GAP 9 Normal 5-15 [facility] Comment on above: Performed By: #### L 3100.5310, L501.9520, L503.0106, L400.2010, L500.4050, L500.4100, L502.0500, L100.0100, L506.0400, L506.1001 #### [facility] [address] [place], [address] GFR/1.73 sq M.predicted among non-blacks MDRD (S/P/Bld) [Vol rate/Area] 74 mL/min/{1.73_m2} Normal >60 [facility] Comment on above: Result Comment: mL/m in/1.73m2 CKD-EPI Creatinine Equation (2020) Performed By: #### L 3100.5310, L501.9520, L503.0106, L400.2010, L500.4050, L500.4100, L502.0500, L100.0100, L506.0400, L506.1001 #### [facility] [address] [place], [place], [phone] (339) Globulin (S) [Mass/Vol] 2.4 g/dL Normal 2.2-4.2 [facility] Comment on above: Performed By: #### L 3100.5310, L501.9520, L503.0106, L400.2010, L500.4050, L500.4100, L502.0500, L100.0100, L506.0400, L506.1001 #### [facility] [address] [place], [address] Glucose [Mass/Vol] 117 mg/dL High 70-99 [facility] Comment on above: Performed By: #### L 3100.5310, L501.9520, L503.0106, L400.2011, L500.4050, L500.4100, L502.0500, L100.0100, L506.0400, L506.1001 #### [facility] [address] [place], [address] Potassium [Moles/Vol] 4.6 mmol/L Normal 3.3-5.1 [facility] Comment on above: Performed By: #### L 3100.5310, L501.9520, L503.0106, L400.2010, L500.4050, L500.4100, L502.0500, L100.0100, L506.0400, L506.1001 #### [facility] [address] [place], [address] Sodium [Moles/Vol] 139 mmol/L Normal 133-145 [facility] Comment on above: Performed By: #### L 3100.5310, L501.9520, L503.0106, L400.2010, L500.4050, L500.4100, L502.0500, L100.0100, L506.0400, L506.1001 #### [facility] [address] [place], [address] T PROT 6.8 g/dL Normal 5.9-8.4 [facility] Comment on above: Performed By: #### L 3100.5310, L501.9520, L503.0106, L400.2010, L500.4050, L500.4100, L502.0500, L100.0100, L506.0400, L506.1001 #### [facility] [address] [place], [address] Urea nitrogen [Mass/Vol] 23 mg/dL High 4-19 [facility] Comment on above: Performed By: #### L 3100.5310, L501.9520, L503.0106, L400.2011, L500.4050, L500.4100, L502.0500, L100.0100, L506.0400, L506.1001 #### [facility] [address] [place], [address] Eosinophil percentageOrdered By: Jm Joseph on 03-20-2025 Eosinophils/100 WBC (Bld) 1.1 % 0-5 [facility] Erythrocyte distribution wid th ratioOrdered By: Jm Joseph on 03-20-2025 Erythrocyte distribution width (RBC) [Ratio] 12.1 % 11.6-14.6 [facility] Erythrocyte distribution wid th standard deviationOrdered By: Jm Joseph on 03-20-2025 Erythrocyte distribution width (RBC) [Ratio] 41.5 fl 35.1-43.9 [facility] Free testosterone percentage Ordered By: Jm Joseph on 03-20-2025 Testosterone Free/Testosterone.total [Mass fraction] 3.71 % 1.50-4.20 [facility] Comment on above: Performed at: [address] [id number] Director: Jens Guardado PhD, Phone: [phone] at: [facility] [id number] Director: Mookie Camargo MD, Phone: [phone] Glomerular filtration rate ( GFR) estimation/1.73 sq m using serum, plasma, or whole bOrdered By: Jm Joseph on 03-20-2025 GFR/1.73 sq M.predicted among non-blacks MDRD (S/P/Bld) [Vol rate/Area] 74 mL/min/{1.73_m2} >60 [facility] Comment on above: mL/min/1.73m2 CKD-EP I Creatinine Equation (2020) Hematocrit Auto (Bld) [Volum e fraction]Ordered By: Jm Joseph on 03-20-2025 Hematocrit (Bld) [Volume fraction] 45.4 % 40-54 [facility] Hemoglobin measurementOrdere d By: Jm Joseph on 03-20-2025 Hemoglobin (Bld) [Mass/Vol] 15.5 g/dL 13.0-16. 5 [facility] Immature granulocytes/100 WB C Auto (Bld)Ordered By: Jm Joseph on 03-20-2025 Immature granulocytes/100 WBC (Bld) 0.200 % 0.0-0.9 [facility] Comment on above: IG% - Immature Granu locytes (promyelocytes, myelocytes and metamyelocytes) > 1% indicates that a LEFT SHIFT is Present. Ketones Test strip Ql (U)Ord ered By: Jm Joseph on 03-20-2025 Ketones Ql (U) Negative Negative [facility] LDL calc ser/plasOrdered By: Jm Joseph on 03-20-2025 Cholesterol in LDL [Mass/Vol] 59 mg/dL [facility] Comment on above: Mmjdinyikb=029-504 m g/dL & Higher Heiz=183 mg/dL or greater Laboratory - Chemistry and C hemistry - challengeOrdered By: Jm Joseph on 03-20-2025 AST [Catalytic activity/Vol] 28 U/L <38 [facility] Lipid Profileon 03-20-2025 CHOL:HDL 3.34 Normal [facility] Comment on above: Performed By: #### L 3100.5310, L501.9520, L503.0106, L400.2010, L500.4050, L500.4100, L502.0500, L100.0100, L506.0400, L506.1001 #### [facility] [address] [place], [place], [address] Cholesterol [Mass/Vol] 111 mg/dL Normal <=200 [facility] Comment on above: Result Comment: Chol esterol level, Desirable <200 mg/dL Borderline high cholesterol 200-239 mg/dL High cholesterol >=240 mg/dL Recommendations of the NCEP Adult Treatment Panel for the following risk-cutoff thresholds for the [place] population. Performed By: #### L 3100.5310, L501.9520, L503.0106, L400.2010, L500.4050, L500.4100, L502.0500, L100.0100, L506.0400, L506.1001 #### [facility] [address] [place], [address] Cholesterol in HDL [Mass/Vol] 33 mg/dL Low [facility] Comment on above: Result Comment: Shi onal Cholesterol Education Program (NCEP) guidelines: <40 mg/dL: Low HDL-cholesterol (major risk factor for CHD) >= 60 mg/dL: High HDL-cholesterol (negative risk factor for CHD) HDL-cholesterol is affected by a number of factors, e.g. smoking, exercise, hormones, sex and age. Performed By: #### L 3100.5310, L501.9520, L503.0106, L400.2010, L500.4050, L500.4100, L502.0500, L100.0100, L506.0400, L506.1001 #### [facility] [address] [place], [address] Cholesterol in LDL [Mass/Vol] 59 mg/dL Normal [facility] Comment on above: Result Comment: Bord csmbvj=757-891 mg/dL Higher Vfou=660 mg/dL or greater Performed By: #### L 3100.5310, L501.9520, L503.0106, L400.2010, L500.4050, L500.4100, L502.0500, L100.0100, L506.0400, L506.1001 #### [facility] [address] [place], [address] Cholesterol in VLDL [Mass/Vol] 19 mg/dL Normal 5-40 [facility] Comment on above: Performed By: #### L 3100.5310, L501.9520, L503.0106, L400.2010, L500.4050, L500.4100, L502.0500, L100.0100, L506.0400, L506.1001 #### [facility] [address] [place], [address] Triglyceride [Mass/Vol] 93 mg/dL Normal [facility] Comment on above: Result Comment: The drugs N-Acetylcysteine and Metamizole may falsely depress this assay. Normal range: <150 mg/dL Borderline High: 150-199 mg/dL High: 200-499 mg/dL Very High: >500 mg/dL Performed By: #### L 3100.5310, L501.9520, L503.0106, L400.2010, L500.4050, L500.4100, L502.0500, L100.0100, L506.0400, L506.1001 #### [facility] [address] [place], [address] MCV (mean corpuscular volume ) determinationOrdered By: Jm Joseph on 03-20-2025 MCV (RBC) [Entitic vol] 93.2 fL 80-94 [facility] Mean corpuscular hemoglobin (MCH) determinationOrdered By: Jm Joseph on 03-20-2025 MCH (RBC) [Entitic mass] 31.8 pg 27.0-32.0 [facility] Mean corpuscular hemoglobin concentration (MCHC) determinationOrdered By: Jm Joseph on 03-20-2025 MCHC (RBC) [Mass/Vol] 34.1 g/dL 32-36 [facility] Mean platelet volume determi nationOrdered By: Jm Joseph on 03-20-2025 Platelet mean volume (Bld) [Entitic vol] 9.9 fL 6.2-12.0 [facility] Microalbumin,Random Urineon 03-20-2025 MICROALBUMIN,UR 32.9 mg/L Normal NO RANGE EST. [facility] Comment on above: Performed By: #### L 3100.5310, L501.9520, L503.0106, L400.2010, L500.4050, L500.4100, L502.0500, L100.0100, L506.0400, L506.1001 #### [facility] [address] [place], [address] Monocyte percentageOrdered B y: Jm Joseph on 03-20-2025 Monocytes/100 WBC (Bld) 10.7 % High 0-10 [facility] Neutrophil percentageOrdered By: Jm Joseph on 03-20-2025 Neutrophils/100 WBC (Bld) 60.5 % 47-70 [facility] Nitrite Test strip Ql (U)Ord ered By: Jm Joseph on 03-20-2025 Nitrite Ql (U) Negative Negative [facility] Nucleated red blood cell per centageOrdered By: Jm Joseph on 03-20-2025 Nucleated RBC/100 WBC (Bld) [Ratio] 0 % 0-5 [facility] Platelet countOrdered By: Lamin Joseph on 03-20-2025 Platelets (Bld) [#/Vol] 207 10*3/uL 150-450 [facility] Potassium measurement (mass/ volume)Ordered By: Jm Joseph on 03-20-2025 Potassium (Unsp spec) [Mass/Vol] 4.6 mmol/L 3.3-5.1 [facility] Protein Test strip Ql (U)Ord ered By: Jm Joseph on 03-20-2025 Protein Ql (U) 30 mg/dl High Negative [facility] RBC Auto (Bld) [#/Vol]Ordere d By: Jm Joseph on 03-20-2025 RBC (Bld) [#/Vol] 4.87 10*6/uL 4.6-6.2 [facility] Screening total cholesterol/ high density lipoprotein (HDL) cholesterol ratioOrdered By: Jm Joseph on 03-20-2025 Cholesterol.total/Cholestero l in HDL [Mass ratio] 3.34 {ratio} [facility] Serum creatinine measurement (mass/volume)Ordered By: Jm Joseph on 03-20-2025 Creatinine [Mass/Vol] 1.21 mg/dL High 0.70-1.20 [facility] Serum globulin measurementOr dered By: Jm Joseph on 03-20-2025 Globulin (S) [Mass/Vol] 2.4 g/dL 2.2-4.2 [facility] Serum glucose measurement (m ass/volume)Ordered By: Jm Joseph on 03-20-2025 Glucose [Mass/Vol] 117 mg/dL High 70-99 [facility] Serum or plasma alanine castillo otransferase (ALT) measurementOrdered By: Jm Joseph on 03-20-2025 ALT [Catalytic activity/Vol] 27 U/L <47 [facility] Serum or plasma albumin rafa urement (mass/volume)Ordered By: Jm Joseph on 03-20-2025 Albumin [Mass/Vol] 4.4 g/dL 3.5-5.0 [facility] Serum or plasma albumin/glob ulin mass ratioOrdered By: Jm Joseph on 03-20-2025 Albumin/Globulin [Mass ratio] 1.8 {ratio} 0.9-2.4 [facility] Serum or plasma alkaline anne-marie sphatase measurementOrdered By: Jm Joseph on 03-20-2025 ALP [Catalytic activity/Vol] 62 U/L 40-129 [facility] Serum or plasma calcium rafa urement (mass/volume)Ordered By: Jm Joseph on 03-20-2025 Calcium [Mass/Vol] 8.8 mg/dL 7.6-11.0 [facility] Serum or plasma cholesterol in HDL measurement (mass/volume)Ordered By: Jm Joseph on 03-20-2025 Cholesterol in HDL [Mass/Vol] 33 mg/dL Low >40 [facility] Comment on above: National Cholesterol Education Program (NCEP) guidelines:<40 mg/dL: Low HDL-cholesterol (major risk factor for CHD)>= 60 mg/dL: High HDL-cholesterol (negative risk factor for CHD)HDL-cholesterol is affected by a number of factors, e.g. smoking, exercise, hormones, sex and age. Serum or plasma cholesterol measurement (mass/volume)Ordered By: Jm Joseph on 03-20-2025 Cholesterol [Mass/Vol] 111 mg/dL <201 [facility] Comment on above: Cholesterol level, D esirable <200 mg/dLBorderline high cholesterol 200-239 mg/dLHigh cholesterol >=240 mg/dLRecommendations of the NCEP Adult Treatment Panel for the following risk-cutoff thresholds for the [place] population. Serum or plasma free testost erone measurement (mass/volume)Ordered By: Jm Joseph on 03-20-2025 Testosterone Free [Mass/Vol] 32.35 ng/dL High 5.00-2 1.00 [facility] Serum or plasma urea nitroge n measurement (mass/volume)Ordered By: Jm Joseph on 03-20-2025 Urea nitrogen [Mass/Vol] 23 mg/dL High 4-19 [facility] Sodium levelOrdered By: Jm Joseph on 03-20-2025 Sodium [Moles/Vol] 139 mmol/L 133-145 [facility] T4 Free Directon 03-20-2025 T4 FREE DIRECT 0.80 ng/dL Normal 0.76-1.46 [facility] Comment on above: Order Comment: N Performed By: #### L 3100.5310, L501.9520, L503.0106, L400.2011, L500.4050, L500.4100, L502.0500, L100.0100, L506.0400, L506.1001 #### [facility] [employer] [address] [place], [address] T4 freeOrdered By: Jm dougherty on 03-20-2025 Free T4 [Mass/Vol] 0.80 ng/dL 0.76-1.46 [facility] TSH DL <= 0.005 mIU/L QnOrde red By: Jm Joseph on 03-20-2025 TSH Qn 0.989 uIU/mL 0.300-4.20 0 [facility] Testosterone, totalOrdered B y: Jm Joseph on 03-20-2025 Testosterone [Mass/Vol] 872 ng/dL 264-916 [facility] Comment on above: Adult male reference interval is based on a population ofhealthy nonobese males (BMI <30) between 19 and 39 yearsold. easton De La Cruz.al. JCEM 2017,102;7113-4036. PMID:[id number]. Thyroid Stim Hormone (TSH)on 03-20-2025 TSH 0.989 uIU/mL Normal 0.300-4.20 0 [facility] Comment on above: Performed By: #### L 3100.5310, L501.9520, L503.0106, L400.2010, L500.4050, L500.4100, L502.0500, L100.0100, L506.0400, L506.1001 #### [facility] [address] [place], [address] Total proteinOrdered By: Penny Joseph on 03-20-2025 Protein [Mass/Vol] 6.8 g/dL 5.9-8.4 [facility] Triglycerides measurementOrd ered By: Jm Joseph on 03-20-2025 Triglyceride [Mass/Vol] 93 mg/dL <199 [facility] Comment on above: The drugs N-Acetylcy steine and Metamizole may falsely depress this assay. Normal range: <150 mg/dLBorderline High: 150-199 mg/dLHigh: 200-499 mg/dLVery High: >500 mg/dL Urinalysis, Routine (Dipstic k)on 03-20-2025 BILIRUBIN URINE Negative Normal Negative [facility] Comment on above: Order Comment: [id number] 3 URINE TOXICOLOGY Performed By: #### L 505.5000, L3410.9999 #### [facility] [address] [place], [address] Clarity (U) Clear Normal Clear [facility] Comment on above: Order Comment: [id number] 3 URINE TOXICOLOGY Performed By: #### L 505.5000, L3410.9999 #### [facility] [address] [place], [address] Color (U) Yellow Normal Yellow [facility] Comment on above: Order Comment: [id number] 3 URINE TOXICOLOGY Performed By: #### L 505.5000, L3410.9999 #### [facility] [address] [place], [address] GLUCOSE, UR Normal Normal Normal [facility] Comment on above: Order Comment: 44417 3 URINE TOXICOLOGY Performed By: #### L 505.5000, L3410.9999 #### [facility] [address] [place], [address] KETONE UR Negative Normal Negative [facility] Comment on above: Order Comment: 23723 3 URINE TOXICOLOGY Performed By: #### L 505.5000, L3410.9999 #### [facility] [address] [place], [address] LEUK ESTERASE Negative Normal Negative [facility] Comment on above: Order Comment: 13848 3 URINE TOXICOLOGY Performed By: #### L 505.5000, L3410.9999 #### [facility] [address] [place], [address] Nitrite Ql (U) Negative Normal Negative [facility] Comment on above: Order Comment: [id number] 3 URINE TOXICOLOGY Performed By: #### L 505.5000, L3410.9999 #### [facility] [address] [place], [address] OCCULT BLOOD-UR 10 /ul Abnormal Negative [facility] Comment on above: Order Comment: 36083 3 URINE TOXICOLOGY Performed By: #### L 505.5000, L3410.9999 #### [facility] [address] [place], [address] pH UR 6.0 Normal 5.0 - 8.0 [facility] Comment on above: Order Comment: 47966 3 URINE TOXICOLOGY Performed By: #### L 505.5000, L3410.9999 #### [facility] [address] [place], [address] PROT DIPSTX 30 mg/dl Abnormal Negative [facility] Comment on above: Order Comment: 60455 3 URINE TOXICOLOGY Performed By: #### L 505.5000, L3410.9999 #### [facility] [address] [place], [address] SP.GR. DIPSTX 1.015 Normal 1.002-1.03 0 [facility] Comment on above: Order Comment: 17095 3 URINE TOXICOLOGY Performed By: #### L 505.5000, L3410.9999 #### [facility] [address] [place], [place], [address] UROBILI Normal Normal Normal [facility] Comment on above: Order Comment: 73868 3 URINE TOXICOLOGY Performed By: #### L 505.5000, L3410.9999 #### [facility] [address] [place], [place], [id number] Urine albumin measurement wi detection limit of 20 mg/L or less (mass/volume)Ordered By: Jm Joseph on 03-20-2025 Albumin DL <= 20 mg/L (U) [Mass/Vol] 32.9 mg/L NO RANGE EST. [facility] Urine clarityOrdered By: Penny Joseph on 03-20-2025 Clarity (U) Clear Clear [facility] Urine color determinationOrd ered By: Jm Joseph on 03-20-2025 Color (U) Yellow Yellow [facility] Urine glucose detectionOrder ed By: Jm Joseph on 03-20-2025 Glucose Ql (U) Normal mg/dl Normal [facility] Urine leukocyte esterase det ection by dipstickOrdered By: Jm Joseph on 03-20-2025 Leukocyte esterase Test strip Ql (U) Negative Negative [facility] Urine pHOrdered By: Jm jensen on 03-20-2025 pH (U) 6.0 [pH] 5.0 - 8.0 [facility] Urine specific gravity measu rementOrdered By: Jm Joseph on 03-20-2025 Specific gravity (U) [Rel density] 1.015 1.002-1.03 0 [facility] Urine urobilinogen measureme ntOrdered By: Jm Joseph on 03-20-2025 Urobilinogen Ql (U) Normal mg/dl Normal [facility] Vitamin B12on 03-20-2025 Cobalamin (Vitamin B12) [Mass/Vol] 903 pg/mL Normal 180-914 [facility] Comment on above: Performed By: #### L 3100.5310, L501.9520, L503.0106, L400.2011, L500.4050, L500.4100, L502.0500, L100.0100, L506.0400, L506.1001 #### [facility] [address] [place], [address] Vitamin B12 ser/plasOrdered By: Jm Joseph on 03-20-2025 Cobalamin (Vitamin B12) [Mass/Vol] 903 pg/mL 180-914 [facility] Vitamin D,25 Hydroxyon 03-20 Vitamin D 25-OH 30.4 ng/mL Normal 30-100 [facility] Comment on above: Result Comment: Renata min D Status Deficiency: <20 ng/mL (50nmol/L) Insufficiency: 20-30 ng/mL (50-75 nmol/L) Sufficiency: 30-100 ng/mL (75-250 nmol/L) Toxicity: >100 ng/mL (>250 nmol/L) Performed By: #### L 3100.5310, L501.9520, L503.0106, L400.2011, L500.4050, L500.4100, L502.0500, L100.0100, L506.0400, L506.1001 #### [facility] [address] [place], [address] White blood cell (WBC) count Ordered By: Jm Joseph on 03-20-2025 WBC (Bld) [#/Vol] 4.6 10*3/uL 4.4-11.0 [facility] Magnetic resonance imaging r eportOrdered By: Misael Howard on 01-07-2025 Study report [facility] Imaging Services [address] [place] [address] Spine Cervical (Routine) MR#: [id number] Acct: [id number] Name: KULWANT VALLES Rep #: [id number] : 1975 M 49 From: Deneen Howard MD PCP: Dr. Jm Joseph MD Status: NICOLE IVAN Study:Spine Cervical (Routine) Date of Exam: 01/04/25 Exam# [id number] Ordering Dr: Adams Zhou MD PROCEDURE: SPINE [...] changes of the cervical spine. Reading Location: ЕКАТЕРИНА CC: Dr. Clemente Zhou MD; Dr. Jm Joseph MD ~ [employer]: Signed [facility] Orbits for Foreign Bodyon Orbits for Foreign Body [facility] Imaging Services [address] [place] [address] Orbits for Foreign Body MR#: [id number] Acct: [id number] Name: KULWANT VALLES Rep #: [id number] : 1975 49 From: Isaac rico MD PCP: Dr. Jm Joseph MD Status: REG CLI Study: Orbits for Foreign Body Date of Exam: 01/04/25 Exam# [id number] Ordering Dr: Clemente Zhou MD PROCEDURE: ORBITS FOR FOREIGN BODY REASON FOR EXAM: MRI screening examination. TECHNIQUE: 2 view(s) of the orbits. COMPARISON: None. FINDINGS: No evidence of displaced orbit fracture. No radiopaque foreign body. Visualized paranasal sinuses appear clear. RAD/Orbits for Foreign Body IMPRESSION: NEGATIVE ORBIT X-RAYS Reading Location: [id number] CC: Dr. Clemente Zhou MD; Dr. Jm Joseph MD [employer]: Signed Normal [facility] Spine Cervical (Routine)on 0 01-04-2025 Spine Cervical (Routine) [facility] Imaging Services [address] [place] [address] Spine Cervical (Routine) MR#: [id number] Acct: [id number] Name: KULWANT VALLES Rep #: [id number] : 1975 M 49 From: Misael carranza MD PCP: Dr. Jm Joseph MD Status: REG CLI Study: Spine Cervical (Routine) Date of Exam: Exam# [id number] Ordering Dr: Clemente Zhou MD PROCEDURE: SPINE [...] changes of the cervical spine. Reading [facility] CC: Dr. Clemente Zhou MD; Dr. Jm Joseph MD [employer]: Signed Normal [facility] Absolute lymphocyte countOrd ered By: Jm Joseph on 12-03-2024 Lymphocytes Auto (Unsp spec) [#/Vol] 1.56 10*3/uL 0.83-4.51 [facility] Absolute neutrophil countOrd ered By: Jm Joseph on 12-03-2024 Neutrophils (Bld) [#/Vol] 4.2 10*3/uL 2.0-7.7 [facility] Automated lymphocyte count a s percentage of total leukocytesOrdered By: Jm Joseph on 12-03-2024 Lymphocytes/100 WBC Auto (Unsp spec) 23.9 % 19-41 [facility] Basic Metabolic Profile (BMP )on 12-03-2024 BUN/CRE 21.0 RATIO High 10-20 [facility] Comment on above: Performed By: #### L 505.5000, L3410.9999 #### [facility] [address] [place], [address] CA,Total 9.6 mg/dL Normal 8.5-10.1 [facility] Comment on above: Performed By: #### L 505.5000, L3410.9999 #### [facility] [address] [place], [address] Chloride [Moles/Vol] 105 mmol/L Normal 98-107 [facility] Comment on above: Performed By: #### L 505.5000, L3410.9999 #### [facility] [address] [place], [address] CO2 [Moles/Vol] 28.0 mmol/L Normal 21.0-32.0 [facility] Comment on above: Performed By: #### L 505.5000, L3410.9999 #### [facility] [address] [place], [address] Creatinine [Mass/Vol] 1.38 mg/dL High 0.70-1.30 [facility] Comment on above: Result Comment: The validity of the calculated GFR GFRAA in patients over 70 years has not been determined. Clinical correlation is essential. Performed By: #### L 505.5000, L3410.9999 #### [facility] [address] [place], [address] EST GFR - AA 71 mL/min Normal >60 [facility] Comment on above: Result Comment: Afri can Gibraltarian GFR Calc Performed By: #### L 505.5000, L3410.9999 #### [facility] [address] [place], [address] GAP 5 Normal 5-15 [facility] Comment on above: Performed By: #### L 505.5000, L3410.9999 #### [facility] [address] [place], [address] GFR/1.73 sq M.predicted among non-blacks MDRD (S/P/Bld) [Vol rate/Area] 58 mL/min/{1.73_m2} Low >60 [facility] Comment on above: Result Comment: Non- GFR Calc Performed By: #### L 505.5000, L3410.9999 #### [facility] [address] [place], [address] Glucose [Mass/Vol] 95 mg/dL Normal 74-106 [facility] Comment on above: Performed By: #### L 505.5000, L3410.9999 #### [facility] [address] [place], [address] Potassium [Moles/Vol] 4.3 mmol/L Normal 3.5-5.1 [facility] Comment on above: Performed By: #### L 505.5000, L3410.9999 #### [facility] [address] [place], [address] Sodium [Moles/Vol] 138 mmol/L Normal 136-145 [facility] Comment on above: Performed By: #### L 505.5000, L3410.9999 #### [facility] [address] [place], [address] Urea nitrogen [Mass/Vol] 29 mg/dL High 7-18 [facility] Comment on above: Performed By: #### L 505.5000, L3410.9999 #### [facility] [address] [place], [address] Basophil percentageOrdered B y: Jm Joseph on 12-03-2024 Basophils/100 WBC (Bld) 0.5 % 0-1 [facility] Blood urea nitrogen (BUN)/cr eatinine ratioOrdered By: Jm Joseph on 12-03-2024 Urea nitrogen/Creatinine [Mass ratio] 21.0 mg/mg High 10-20 [facility] CBC W/Diff, Automatedon 11-06 Absolute Lymph 1.56 X10 3/uL Normal 0.83-4.51 [facility] Comment on above: Performed By: #### L 505.5000, L3410.9999 #### [facility] [address] [place], [address] Absolute Neut 4.2 X10 3/uL Normal 2.0-7.7 [facility] Comment on above: Performed By: #### L 505.5000, L3410.9999 #### [facility] [address] [place], [address] Basophils/100 WBC (Bld) 0.5 % Normal 0-1 [facility] Comment on above: Performed By: #### L 505.5000, L3410.9999 #### [facility] [address] [place], [address] Eosinophils/100 WBC (Bld) 0.9 % Normal 0-5 [facility] Comment on above: Performed By: #### L 505.5000, L3410.9999 #### [facility] [address] [place], [address] Erythrocyte distribution width (RBC) [Ratio] 12.5 % Normal 11.6-14.6 [facility] Comment on above: Performed By: #### L 505.5000, L3410.9999 #### [facility] [address] [place], [address] Hematocrit (Bld) [Volume fraction] 47.3 % Normal 40-54 [facility] Comment on above: Performed By: #### L 505.5000, L3410.9999 #### [facility] [address] [place], [address] Hemoglobin (Bld) [Mass/Vol] 15.1 g/dL Normal 13.0-16. 5 [facility] Comment on above: Performed By: #### L 505.5000, L3410.9999 #### [facility] [address] [place], [address] IG% 0.300 Normal 0.0-0.9 [facility] Comment on above: Result Comment: IG% - Immature Granulocytes (promyelocytes, myelocytes and metamyelocytes) > 1% indicates that a LEFT SHIFT is Present. Performed By: #### L 505.5000, L3410.9999 #### [facility] [address] [place], [address] Lymphocytes/100 WBC (Bld) 23.9 % Normal 19-41 [facility] Comment on above: Performed By: #### L 505.5000, L3410.9999 #### [facility] [address] [place], [address] MCH (RBC) [Entitic mass] 30.5 pg Normal 27.0-32.0 [facility] Comment on above: Performed By: #### L 505.5000, L3410.9999 #### [facility] [address] [place], [address] MCHC (RBC) [Mass/Vol] 31.9 g/dL Low 32-36 [facility] Comment on above: Performed By: #### L 505.5000, L3410.9999 #### [facility] [address] [place], [address] MCV (RBC) [Entitic vol] 95.6 fL High 80-94 [facility] Comment on above: Performed By: #### L 505.5000, L3410.9999 #### [facility] [address] [place], [address] Monocytes/100 WBC (Bld) 9.8 % Normal 0-10 [facility] Comment on above: Performed By: #### L 505.5000, L3410.9999 #### [facility] [address] [place], [address] Neutrophils/100 WBC (Bld) 64.6 % Normal 47-70 [facility] Comment on above: Performed By: #### L 505.5000, L3410.9999 #### [facility] [address] [place], [address] Nucleated RBC (Bld) [#/Vol] 0 10*3/uL Normal 0-5 [facility] Comment on above: Performed By: #### L 505.5000, L3410.9999 #### [facility] [address] [place], [address] Platelet mean volume (Bld) [Entitic vol] 10.2 fL Normal 6.2-12.0 [facility] Comment on above: Performed By: #### L 505.5000, L3410.9999 #### [facility] [address] [place], [address] Platelets (Bld) [#/Vol] 260 10*3/uL Normal 150-450 [facility] Comment on above: Performed By: #### L 505.5000, L3410.9999 #### [facility] [address] [place], [address] RBC (Bld) [#/Vol] 4.95 10*6/uL Normal 4.6-6.2 [facility] Comment on above: Performed By: #### L 505.5000, L3410.9999 #### [facility] [address] [place], [address] RDW SD 43.6 fl Normal 35.1-43.9 [facility] Comment on above: Performed By: #### L 505.5000, L3410.9999 #### [facility] [address] [place], [address] WBC (Bld) [#/Vol] 6.5 10*3/uL Normal 4.4-11.0 [facility] Comment on above: Performed By: #### L 505.5000, L3410.9999 #### [facility] [address] [place], [address] Carbon dioxide measurementOr dered By: Jm Joseph on 12-03-2024 CO2 [Moles/Vol] 28.0 mmol/L 21.0-32.0 [facility] Chloride measurementOrdered By: Jm Joseph on 12-03-2024 Chloride [Moles/Vol] 105 mmol/L 98-107 [facility] Diagnostic total prostate sp ecific antigen (PSA) measurementOrdered By: Jm Joseph on 12-03-2024 Prostate Specific Antigen Total 0.50 ng/mL 0.0-4.0 [facility] Comment on above: This test was perfor med using the TPSA assay method for the[facility] chemistry system. Values obtained with differentassay methods cannot be used interchangably.When changing PSA assays in the course of monitoring apatient, additional sequential testing should be carriedout to confirm baseline values. Eosinophil percentageOrdered By: Jm Joseph on 12-03-2024 Eosinophils/100 WBC (Bld) 0.9 % 0-5 [facility] Erythrocyte distribution wid th ratioOrdered By: Jm Joseph on 12-03-2024 Erythrocyte distribution width (RBC) [Ratio] 12.5 % 11.6-14.6 [facility] Erythrocyte distribution wid th standard deviationOrdered By: Jm Joseph on 12-03-2024 Erythrocyte distribution width (RBC) [Entitic vol] 43.6 fL 35.1-43.9 [facility] Erythrocyte distribution width (RBC) [Ratio] 43.6 fl 35.1-43.9 [facility] Estimated glomerular filtrat ion rate (GFR) AmericanOrdered By: mJ Joseph on 12-03-2024 Estimated GFR (MDRD) Amer 71 mL/min >60 [facility] Comment on above: GFR Calc Glomerular filtration rate ( GFR) estimationOrdered By: Jm Joseph on 12-03-2024 Estimated GFR (MDRD) Non-Af Amer 58 mL/min Low >60 [facility] Comment on above: Non- GFR Calc GFR/1.73 sq M.predicted among non-blacks MDRD (S/P/Bld) [Vol rate/Area] 58 mL/min/{1.73_m2} Low >60 [facility] Comment on above: Non- GFR Calc Glucose measurementOrdered B y: Jm Joseph on 12-03-2024 Glucose [Mass/Vol] 95 mg/dL 74-106 [facility] Hematocrit Auto (Bld) [Volum e fraction]Ordered By: Jm Joseph on 12-03-2024 Hematocrit (Bld) [Volume fraction] 47.3 % 40-54 [facility] Hemoglobin measurementOrdere d By: Jm Joseph on 12-03-2024 Hemoglobin (Bld) [Mass/Vol] 15.1 g/dL 13.0-16. 5 [facility] High density lipoprotein (HD L) measurementOrdered By: Jm Joseph on 12-03-2024 Cholesterol in HDL [Mass/Vol] 47 mg/dL >40 [facility] Comment on above: The drugs N-Acetylcy steine and Metamizole may falsely depress this assay. Reference Range HDL <40 mg/dL Low HDL Cholesterol HDL >or= 60 mg/dL High HDL Cholesterol Immature granulocytes/100 WB C Auto (Bld)Ordered By: Jm Joseph on 12-03-2024 Immature granulocytes/100 WBC (Bld) 0.300 % 0.0-0.9 [facility] Comment on above: IG% - Immature Granu locytes (promyelocytes, myelocytes and metamyelocytes) > 1% indicates that a LEFT SHIFT is Present. Lipid Profileon 12-03-2024 Cholesterol [Mass/Vol] 128 mg/dL Normal 200 [facility] Comment on above: Result Comment: <200 mg/dL Desirable 200-240 mg/dL Borderline >240 mg/dL High Risk Performed By: #### L 3100.5310, L501.9520, L503.0106, L400.2010, L500.4050, L500.4100, L502.0500, L100.0100, L506.0400, L506.1001 #### [facility] [address] [place], [address] Cholesterol in HDL [Mass/Vol] 47 mg/dL Normal [facility] Comment on above: Result Comment: The drugs N-Acetylcysteine and Metamizole may falsely depress this assay. Reference Range HDL <40 mg/dL Low HDL Cholesterol HDL >or= 60 mg/dL High HDL Cholesterol Performed By: #### L 3100.5310, L501.9520, L503.0106, L400.2010, L500.4050, L500.4100, L502.0500, L100.0100, L506.0400, L506.1001 #### [facility] [address] [place], [address] Cholesterol in LDL [Mass/Vol] 52 mg/dL Normal 0-130 [facility] Comment on above: Performed By: #### L 3100.5310, L501.9520, L503.0106, L400.2010, L500.4050, L500.4100, L502.0500, L100.0100, L506.0400, L506.1001 #### [facility] [address] [place], [address] Cholesterol in VLDL [Mass/Vol] 29 mg/dL Normal 5-40 [facility] Comment on above: Performed By: #### L 3100.5310, L501.9520, L503.0106, L400.2011, L500.4050, L500.4100, L502.0500, L100.0100, L506.0400, L506.1001 #### [facility] [address] [place] [address], [place], [address] Triglyceride [Mass/Vol] 146 mg/dL Normal [facility] Comment on above: Result Comment: The drugs N-Acetylcysteine and Metamizole may falsely depress this assay. Serum Triglycerides Reference Interval Normal <150 mg/dL Borderline high 150 - 199 mg/dL High 200 - 499 mg/dL Very High > or = 500 mg/dL Performed By: #### L 3100.5310, L501.9520, L503.0106, L400.2010, L500.4050, L500.4100, L502.0500, L100.0100, L506.0400, L506.1001 #### [facility] [address] [place], [place], [address] Low density lipoprotein (LDL ) cholesterol measurementOrdered By: Jm Joseph on 12-03-2024 Cholesterol in LDL [Mass/Vol] 52 mg/dL 0-130 [facility] Lymphocytes Auto (Unsp spec) [#/Vol]Ordered By: Jm Joseph on 12-03-2024 Lymphocytes (Bld) [#/Vol] 1.56 10*3/uL 0.83-4.5 1 [facility] Lymphocytes/100 WBC Auto (Un sp spec)Ordered By: Jm Joseph on 12-03-2024 Lymphocytes/100 WBC (Bld) 23.9 % 19-41 [facility] MCV (mean corpuscular volume ) determinationOrdered By: Jm Joseph on 12-03-2024 MCV (RBC) [Entitic vol] 95.6 fL High 80-94 [facility] Mean corpuscular hemoglobin (MCH) determinationOrdered By: Jm Joseph on 12-03-2024 MCH (RBC) [Entitic mass] 30.5 pg 27.0-32.0 [facility] Mean corpuscular hemoglobin concentration (MCHC) determinationOrdered By: Jm Joseph on 12-03-2024 MCHC (RBC) [Mass/Vol] 31.9 g/dL Low 32-36 [facility] Mean platelet volume determi nationOrdered By: Jm Joseph on 12-03-2024 Platelet mean volume (Bld) [Entitic vol] 10.2 fL 6.2-12.0 [facility] Monocyte percentageOrdered B y: Jm Joseph on 12-03-2024 Monocytes/100 WBC (Bld) 9.8 % 0-10 [facility] Neutrophil percentageOrdered By: Jm Joseph on 12-03-2024 Neutrophils/100 WBC (Bld) 64.6 % 47-70 [facility] Nucleated red blood cell per centageOrdered By: Jm Joseph on 12-03-2024 Nucleated RBC/100 WBC (Bld) [Ratio] 0 % 0-5 [facility] PSA,Total- Diagnosticon 11-06 PSA, DIAGNOSTIC 0.50 ng/mL Normal 0.0-4.0 [facility] Comment on above: Result Comment: This test was performed using the TPSA assay method for the [employer] chemistry system. Values obtained with different assay methods cannot be used interchangably. When changing PSA assays in the course of monitoring a patient, additional sequential testing should be carried out to confirm baseline values. Performed By: #### L 3100.5310, L501.9520, L503.0106, L400.2011, L500.4050, L500.4100, L502.0500, L100.0100, L506.0400, L506.1001 #### [facility] [address] [place] [address] [place], [address] Platelet countOrdered By: Lamin ul Jake on 12-03-2024 Platelets (Bld) [#/Vol] 260 10*3/uL 150-450 [facility] Potassium measurementOrdered By: Jm Joseph on 12-03-2024 Potassium [Moles/Vol] 4.3 mmol/L 3.5-5.1 [facility] RBC Auto (Bld) [#/Vol]Ordere d By: Jm Joseph on 12-03-2024 RBC (Bld) [#/Vol] 4.95 10*6/uL 4.6-6.2 [facility] Serum anion gap measurementO rdered By: Jm Joseph on 12-03-2024 Anion gap [Moles/Vol] 5 mmol/L 5-15 [facility] Serum or plasma calcium rafa urement (mass/volume)Ordered By: Jm Joseph on 12-03-2024 Calcium [Mass/Vol] 9.6 mg/dL 8.5-10.1 [facility] Serum or plasma cholesterol measurement (mass/volume)Ordered By: Jm Joseph on 12-03-2024 Cholesterol [Mass/Vol] 128 mg/dL <200 [facility] Comment on above: <200 mg/dL Desirable 200-240 mg/dL Borderline >240 mg/dL High Risk Serum or plasma creatinine m easurement (mass/volume)Ordered By: Jm Joseph on 12-03-2024 Creatinine [Mass/Vol] 1.38 mg/dL High 0.70-1.30 [facility] Comment on above: The validity of the calculated GFR & GFRAA in patients over 70 years has not been determined. Clinical correlation is essential. Serum or plasma urea nitroge n measurement (mass/volume)Ordered By: Jm Joseph on 12-03-2024 Urea nitrogen [Mass/Vol] 29 mg/dL High 7-18 [facility] Sodium levelOrdered By: Jm Joseph on 12-03-2024 Sodium [Moles/Vol] 138 mmol/L 136-145 [facility] Testosterone, Serum Totalon 12-03-2024 Testosterone [Mass/Vol] 558.37 ng/dL Normal [facility] Comment on above: Result Comment: CENT RAL 90% REFERENCE RANGES MALE AGE <50 197.44 - 669.58 ng/dL MALE AGE > or = 50 187.72 - 684.19 ng/dL FEMALE AGE <50 8.38 - 35.01 ng/dL FEMALE AGE > or = 50 <7.00 - 35.92 ng/dL Effective as of 05/30/21 Performed By: #### L 505.5000, L3410.9999 #### [facility] [address] [address], [place], [address] Testosterone, totalOrdered B y: Jm Joseph on 12-03-2024 Testosterone [Mass/Vol] 558.37 ng/dL [facility] Comment on above: CENTRAL 90% REFERENC E RANGES MALE AGE <50 197.44 - 669.58 ng/dL MALE AGE > or = 50 187.72 - 684.19 ng/dL FEMALE AGE <50 8.38 - 35.01 ng/dL FEMALE AGE > or = 50 <7.00 - 35.92 ng/dL Effective as of 05/30/21 Triglycerides measurementOrd ered By: Jm Joseph on 12-03-2024 Triglyceride [Mass/Vol] 146 mg/dL <199 [facility] Comment on above: The drugs N-Acetylcy steine and Metamizole may falsely depress this assay.Serum Triglycerides Reference Interval Normal <150 mg/dL Borderline high 150 - 199 mg/dL High 200 - 499 mg/dL Very High > or = 500 mg/dL Very low density lipoprotein (VLDL) cholesterol measurementOrdered By: Jm Joseph on 12-03-2024 Very low density lipoprotein (VLDL) cholesterol measurement 29 mg/dL 5-40 [facility] VLDL Cholesterol 29 mg/dL 5-40 [facility] White blood cell (WBC) count Ordered By: Jm Joseph on 12-03-2024 WBC (Bld) [#/Vol] 6.5 10*3/uL 4.4-11.0 [facility] L3410.9999on 11-10-2024 [facility] Misc. COMMENT Normal . [facility] Comment on above: Order Comment: [id number] URINE TOXICOLOGY Result Comment: Test Ordered: [id number] 6+Oxycodone-Bund Amphetamines, Urine Negative ng/mL UI Reference Range: Vehccj=6234 Amphetamine test includes Amphetamine and Methamphetamine. Barbiturate Negative ng/mL UI Reference Range: Isaqmq=120 Benzodiazepines Negative ng/mL UI Reference Range: Vqdsfu=412 Cannabinoids Negative ng/mL UI Reference Range: Cutoff=20 Cocaine (Metabolite) Negative ng/mL UI Reference Range: Dvwicr=492 Opiates Negative ng/mL UI Reference Range: Tgxjds=375 Opiate test includes Codeine, Morphine, Hydromorphone, Hydrocodone. Oxycodone/Oxymorphone, Urine Negative ng/mL UI Reference Range: Izhsua=203 Test includes Oxycodone and Oxymorphone Performed at: UI - [facility] [address] [place], [place] [id number] Driver Courier: Cecile Rosa PhD, Phone: [phone] Performed at: CB - [facility] [address] [id number] Driver Courier: Jens Guardado PhD, Phone: [phone] Performed By: #### L 505.5000, L3410.9999 #### [facility] [address] [place] [address], [place], [id number] Cerv Spine 2 or 3 Viewson Cerv Spine 2 or 3 Views [facility] Imaging Services [address] [place] [address] Cerv Spine 2 or 3 Views MR#: [id number] Acct: [id number] Name: KULWANT VALLES Nidia Rep #: [id number] : 1975 49 From: Dileep Teran DO PCP: Dr. Jm Joseph MD Status: [facility] CLI Study: Cerv Spine 2 or 3 Views Date of Exam: 11/06/24 Exam# [id number] Ordering Dr: Clemente Zhou MD [id number] STUDY: X-RAY - CERVICAL SPINE REASON FOR [...] 16:43 EST Reading Location ID and State: [facility] / [place] Tel [phone], Service support , CC: Dr. Clemente Zhou MD; Dr. Jm Joseph MD [employer]: Signed Normal [facility] Knee 4 or More Viewson 11-06 Knee 4 or More Views [facility] Imaging Services [address] [place], [place] [address] Knee 4 or More Views MR#: [id number] Acct: [id number] Name: KULWANT VALLES Rep #: [id number] : 1975 49 From: Dileep Teran DO PCP: Dr. Jm Joseph MD Status: REG CLI Study: Knee 4 or More Views Date of Exam: 11/06/24 Exam# [id number] Ordering Dr: Clemente Zhou MD [id number] INDICATION: KNEE PAIN EXAMINATION/TECHNIQUE: X-RAY - RIGHT [...] Signed: Dileep Teran DO at 16:40 EST , CC: Dr. Clemente Zhou MD; Dr. Jm Joseph MD [employer]: Signed Normal [facility] Methadone, urineOrdered By: Clemente Zhou on 11-06-2024 Urine Methadone Screen Negative < 300 ng/mL [facility] No Panel InformationOrdered By: Clemente Zhou on 11-06-2024 Miscellaneous Test COMMENT . [facility] Comment on above: Test Ordered: [id number] 6+Oxycodone-BundAmphetamines, Urine Negative ng/mL UI Reference Range: Boeten=[id number] test includes Amphetamine and Methamphetamine.Barbiturate Negative ng/mL UI Reference Range: Jcjrty=562Bhrvwghzsnezttb Negative ng/mL UI Reference Range: Vohokh=023Wqrsfmbjdast Negative ng/mL UI Reference Range: Cutoff=20Cocaine (Metabolite) Negative ng/mL UI Reference Range: Awdkxe=479Uhtemxt Negative ng/mL UI Reference Range: Duzvkk=992Qflcac test includes Codeine, Morphine, Hydromorphone, Hydrocodone.Oxycodone/Oxymorphone, Urine Negative ng/mL UI Reference Range: Tzcidn=756Jnsb includes Oxycodone and OxymorphonePerformed at: [facility] [id number] [place], [place] [id number] Director: Cecile Rosa PhD, Phone: [phone] at: [facility] [address] [id number] Director: Jens Guardado PhD, Phone: [phone] Urine Drug Screen Comment [facility] Comment on above: CONFIRMATORY TESTING FOR ALL [...] Opiates Ql (U) Negative < 300 ng/mL [facility] Urine Drug Screen (VISTA)on 11-06-2024 AMPHETAMINES Negative Normal <1000 ng/mL [facility] Comment on above: Order Comment: MEDTO X Performed By: #### L 505.5000, [id number] #### [facility] [address] [place], [address] BARBITIURATES Negative Normal < 200 ng/mL [facility] Comment on above: Order Comment: MEDTO X Performed By: #### L 505.5000, [id number] #### [facility] [address] [place], [address] BENZODIAZIPINE Negative Normal < 200 ng/mL [facility] Comment on above: Order Comment: MEDTO X Performed By: #### L 505.5000, [id number] #### [facility] [address] [place], [address] COCAINE Negative Normal < 300 ng/mL [facility] Comment on above: Order Comment: MEDTO X Performed By: #### L 505.5000, [id number] #### [facility] [address] [place], [address] ECSTACY Negative Normal < 500 ng/mL [facility] Comment on above: Order Comment: MEDTO X Performed By: #### L 505.5000, [id number] #### [facility] [address] [place], [address] METHADONE Negative Normal < 300 ng/mL [facility] Comment on above: Order Comment: MEDTO X Performed By: #### L 505.5000, [id number] #### [facility] [address] [place], [address] OPIATES Negative Normal < 300 ng/mL [facility] Comment on above: Order Comment: MEDTO X Performed By: #### L 505.5000, [id number] #### [facility] [address] [place], [address] PCP Negative Normal < 25 ng/mL [facility] Comment on above: Order Comment: MEDTO X Performed By: #### L 505.5000, [id number] #### [facility] [address] [place], [place], [id number] THC Negative Normal < 50 ng/mL [facility] Comment on above: Order Comment: MEDTO X Performed By: #### L 505.5000, [id number] #### [facility] [address] [place], [address] VISTA UDS PH 5 Normal [facility] Comment on above: Order Comment: MEDTO X Performed By: #### L 505.5000, [id number] #### [facility] [address] [place], [place], [id number] Urine amphetamine measuremen tOrdered By: Clemente Zhou on 11-06-2024 Amphetamines Ql (U) Negative <1000 ng/mL [facility] Urine barbiturates measureme ntOrdered By: Clemente Zhou on 11-06-2024 Urine Barbiturates Screen Negative < 200 ng/mL [facility] Urine benzodiazepine levelOr dered By: Clemente Zhou on 11-06-2024 Benzodiazepines Ql (U) Negative < 200 ng/mL [facility] Urine cocaine levelOrdered B y: Clemente Zhou on 11-06-2024 Cocaine Ql (U) Negative < 300 ng/mL [facility] Urine ezowo-6-dbebowfpmtrayu abinol (THC) measurementOrdered By: Clemente Zhou on 11-06-2024 Cannabinoids Screen Ql (U) Negative < 50 ng/m L [facility] Urine methylenedioxymethamph etamine (MDMA) measurementOrdered By: Clemente Zhou on 11-06-2024 MDMA (Ecstasy) Screen Negative < 500 ng/mL [facility] Urine phencyclidine (PCP) de tectionOrdered By: Clemente Zhou on 11-06-2024 Phencyclidine Ql (U) Negative < 25 ng/mL [facility] Absolute lymphocyte countOrd ered By: Jm Joseph on 07-30-2023 Lymphocytes Auto (Unsp spec) [#/Vol] 1.22 10*3/uL 0.83-4.51 [facility] Basophil percentageOrdered B y: Jm Joseph on 07-30-2023 Basophils/100 WBC (Bld) 0.5 % 0-1 [facility] Chloride [Moles/Vol] 100 mmol/L 98-107 [facility] Cholesterol [Mass/Vol] 251 mg/dL <200 [facility] Comment on above: <200 mg/dL Desirable 200-240 mg/dL Borderline >240 mg/dL High Risk Eosinophils/100 WBC (Bld) 0.7 % 0-5 [facility] Glucose [Mass/Vol] 106 mg/dL 74-106 [facility] Comment on above: Fasting Glucose resu lt from 100 to 125 mg/dL suggests IMPAIRED HOMEOSTASIS per A.D.A. criteria. Neutrophils (Bld) [#/Vol] 2.7 10*3/uL 2.0-7.7 [facility] Neutrophils/100 WBC (Bld) 63.5 % 47-70 [facility] Potassium [Moles/Vol] 4.7 mmol/L 3.5-5.1 [facility] Sodium [Moles/Vol] 134 mmol/L 136-145 [facility] Testosterone [Mass/Vol] 146.87 ng/dL [facility] Comment on above: CENTRAL 90% REFERENC E RANGES MALE AGE <50 197.44 - 669.58 ng/dL MALE AGE > or = 50 187.72 - 684.19 ng/dL FEMALE AGE <50 8.38 - 35.01 ng/dL FEMALE AGE > or = 50 <7.00 - 35.92 ng/dL Effective as of 05/30/21 Triglyceride [Mass/Vol] 98 mg/dL <199 [facility] Comment on above: The drugs N-Acetylcy steine and Metamizole may falsely depress this assay.Serum Triglycerides Reference Interval Normal <150 mg/dL Borderline high 150 - 199 mg/dL High 200 - 499 mg/dL Very High > or = 500 mg/dL WBC (Bld) [#/Vol] 4.3 10*3/uL 4.4-11.0 [facility] Blood erythrocytes count (nu mber/volume)Ordered By: Jm Joseph on 07-30-2023 RBC (Bld) [#/Vol] 5.43 10*6/uL 4.6-6.2 [facility] Blood hemoglobin measurement (mass/volume)Ordered By: Jm Joseph on 07-30-2023 Hemoglobin (Bld) [Mass/Vol] 17.3 g/dL 13.0-16. 5 [facility] Blood lymphocytes/100 leukoc ytesOrdered By: Jm Joseph on 07-30-2023 Lymphocytes/100 WBC (Bld) 28.7 % 19-41 [facility] Blood monocytes/100 leukocyt esOrdered By: Jm Joseph on 07-30-2023 Monocytes/100 WBC (Bld) 6.4 % 0-10 [facility] Blood platelet mean volumeOr dered By: Jm Joseph on 07-30-2023 Platelet mean volume (Bld) [Entitic vol] 10.3 fL 6.2-12.0 [facility] Determination of erythrocyte mean corpuscular volume (MCV)Ordered By: Jm Joseph on 07-30-2023 MCV (RBC) [Entitic vol] 95.4 fL 80-94 [facility] Hematocrit Auto (Bld) [Volum e fraction]Ordered By: Jm Joseph on 07-30-2023 Hematocrit (Bld) [Volume fraction] 51.8 % 40-54 [facility] - Chemistry and C hemistry - challengeOrdered By: Jm Joseph on 07-30-2023 CO2 [Moles/Vol] 28.0 mmol/L 21.0-32.0 [facility] Urea nitrogen/Creatinine [Mass ratio] 37.1 mg/mg 10-20 [facility] - Hematology and Cell countsOrdered By: mJ Joseph on 07-30-2023 Erythrocyte distribution width (RBC) [Entitic vol] 41.2 fL 35.1-43.9 [facility] Erythrocyte distribution width (RBC) [Ratio] 11.8 % 11.6-14.6 [facility] Immature granulocytes/100 WBC (Bld) 0.200 % 0.0-0.9 [facility] Comment on above: IG% - Immature Granu locytes (promyelocytes, myelocytes and metamyelocytes) > 1% indicates that a LEFT SHIFT is Present. MCH (RBC) [Entitic mass] 31.9 pg 27.0-32.0 [facility] Nucleated RBC/100 WBC (Bld) [Ratio] 0 % 0-5 [facility] MCHC Auto (RBC) [Mass/Vol]Or dered By: Jm Joseph on 07-30-2023 MCHC (RBC) [Mass/Vol] 33.4 g/dL 32-36 [facility] No Panel InformationOrdered By: Jm Joseph on 07-30-2023 Estimated GFR (MDRD) Amer 97 mL/min >60 [facility] Comment on above: GFR Calc Estimated GFR (MDRD) Non-Af Amer 80 mL/min >60 [facility] Comment on above: Non- GFR Calc Prostate Specific Antigen Total 0.47 ng/mL 0.0-4.0 [facility] Comment on above: This test was perfor med using the TPSA assay method for theViewdle chemistry system. Values obtained with differentassay methods cannot be used interchangably.When changing PSA assays in the course of monitoring apatient, additional sequential testing should be carriedout to confirm baseline values. Platelets bldOrdered By: Penny Joseph on 07-30-2023 Platelets (Bld) [#/Vol] 249 10*3/uL 150-450 [facility] Serum or plasma calcium rafa urement (mass/volume)Ordered By: Jm Joseph on 07-30-2023 Calcium [Mass/Vol] 9.4 mg/dL 8.5-10.1 [facility] Serum or plasma cholesterol in HDL measurement (mass/volume)Ordered By: Jm Joseph on 07-30-2023 Cholesterol in HDL [Mass/Vol] 51 mg/dL >40 [facility] Comment on above: The drugs N-Acetylcy steine and Metamizole may falsely depress this assay. Reference Range HDL <40 mg/dL Low HDL Cholesterol HDL >or= 60 mg/dL High HDL Cholesterol Serum or plasma cholesterol in VLDL measurement (mass/volume)Ordered By: Jm Joseph on 07-30-2023 Cholesterol in VLDL [Mass/Vol] 20 mg/dL 5-40 [facility] Serum or plasma creatinine m easurement (mass/volume)Ordered By: Jm Joseph on 07-30-2023 Creatinine [Mass/Vol] 1.05 mg/dL 0.70-1.30 [facility] Comment on above: The validity of the calculated GFR & GFRAA in patients over 70 years has not been determined. Clinical correlation is essential. Serum or plasma low density lipoprotein (LDL) cholesterol measurement (mass/volume)Ordered By: Jm Joseph on 07-30-2023 Cholesterol in LDL [Mass/Vol] 180 mg/dL 0-130 [facility] Serum or plasma urea nitroge n measurement (mass/volume)Ordered By: Jm Joseph on 07-30-2023 Urea nitrogen [Mass/Vol] 39 mg/dL 7-18 [facility] Thin prep Papanicolaou smear with manual screeningOrdered By: Jm Joseph on 07-30-2023 Thin prep Papanicolaou smear with manual screening 6 5-15 [facility] Basophil percentageOrdered B y: Dr. Joseph on 01-29-2023 Chloride [Moles/Vol] 105 mmol/L 98-107 [facility] Cholesterol [Mass/Vol] 187 mg/dL <200 [facility] Comment on above: <200 mg/dL Desirable 200-240 mg/dL Borderline >240 mg/dL High Risk Glucose [Mass/Vol] 96 mg/dL 74-106 [facility] Potassium [Moles/Vol] 4.2 mmol/L 3.5-5.1 [facility] Sodium [Moles/Vol] 138 mmol/L 136-145 [facility] Triglyceride [Mass/Vol] 179 mg/dL <199 [facility] Comment on above: The drugs N-Acetylcy steine and Metamizole may falsely depress this assay.Serum Triglycerides Reference Interval Normal <150 mg/dL Borderline high 150 - 199 mg/dL High 200 - 499 mg/dL Very High > or = 500 mg/dL Laboratory - Chemistry and C hemistry - challengeOrdered By: Dr. Joseph on 01-29-2023 CO2 [Moles/Vol] 29.0 mmol/L 21.0-32.0 [facility] Urea nitrogen/Creatinine [Mass ratio] 26.3 mg/mg 10-20 [facility] No Panel InformationOrdered By: Dr. Joseph on 01-29-2023 Estimated GFR (MDRD) Amer 85 mL/min >60 [facility] Comment on above: GFR Calc Estimated GFR (MDRD) Non-Af Amer 70 mL/min >60 [facility] Comment on above: Non- GFR Calc Serum or plasma calcium rafa urement (mass/volume)Ordered By: Dr. Joseph on 01-29-2023 Calcium [Mass/Vol] 9.0 mg/dL 8.5-10.1 [facility] Serum or plasma cholesterol in HDL measurement (mass/volume)Ordered By: Dr. Joseph on 01-29-2023 Cholesterol in HDL [Mass/Vol] 36 mg/dL >40 [facility] Comment on above: The drugs N-Acetylcy steine and Metamizole may falsely depress this assay. Reference Range HDL <40 mg/dL Low HDL Cholesterol HDL >or= 60 mg/dL High HDL Cholesterol Serum or plasma cholesterol in VLDL measurement (mass/volume)Ordered By: Dr. Joseph on 01-29-2023 Cholesterol in VLDL [Mass/Vol] 36 mg/dL 5-40 [facility] Serum or plasma creatinine m easurement (mass/volume)Ordered By: Dr. Joseph on 01-29-2023 Creatinine [Mass/Vol] 1.18 mg/dL 0.70-1.30 [facility] Comment on above: The validity of the calculated GFR & GFRAA in patients over 70 years has not been determined. Clinical correlation is essential. Serum or plasma low density lipoprotein (LDL) cholesterol measurement (mass/volume)Ordered By: Dr. Joseph on 01-29-2023 Cholesterol in LDL [Mass/Vol] 115 mg/dL 0-130 [facility] Serum or plasma urea nitroge n measurement (mass/volume)Ordered By: Dr. Joseph on 01-29-2023 Urea nitrogen [Mass/Vol] 31 mg/dL 7-18 [facility] Thin prep Papanicolaou smear with manual screeningOrdered By: Dr. Joseph on 01-29-2023 Thin prep Papanicolaou smear with manual screening 4 5-15 [facility] Absolute lymphocyte countOrd ered By: Dr. Johns on 12-28-2022 Lymphocytes Auto (Unsp spec) [#/Vol] 1.18 10*3/uL 0.83-4.51 [facility] Basophil percentageOrdered B y: Dr. Johns on 12-28-2022 Basophils/100 WBC (Bld) 0.4 % 0-1 [facility] Eosinophils/100 WBC (Bld) 0.4 % 0-5 [facility] Neutrophils (Bld) [#/Vol] 6.2 10*3/uL 2.0-7.7 [facility] Neutrophils/100 WBC (Bld) 74.7 % 47-70 [facility] Testosterone [Mass/Vol] 295.23 ng/dL [facility] Comment on above: CENTRAL 90% REFERENC E RANGES MALE AGE <50 197.44 - 669.58 ng/dL MALE AGE > or = 50 187.72 - 684.19 ng/dL FEMALE AGE <50 8.38 - 35.01 ng/dL FEMALE AGE > or = 50 <7.00 - 35.92 ng/dL Effective as of 05/30/21 WBC (Bld) [#/Vol] 8.3 10*3/uL 4.4-11.0 [facility] Blood erythrocytes count (nu mber/volume)Ordered By: Dr. Johns on 12-28-2022 RBC (Bld) [#/Vol] 5.04 10*6/uL 4.6-6.2 [facility] Blood hemoglobin measurement (mass/volume)Ordered By: Dr. Johns on 12-28-2022 Hemoglobin (Bld) [Mass/Vol] 16.1 g/dL 13.0-16. 5 [facility] Blood lymphocytes/100 leukoc ytesOrdered By: Dr. Johns on 12-28-2022 Lymphocytes/100 WBC (Bld) 14.3 % 19-41 [facility] Blood monocytes/100 leukocyt esOrdered By: Dr. Johns on 12-28-2022 Monocytes/100 WBC (Bld) 9.6 % 0-10 [facility] Blood platelet mean volumeOr dered By: Dr. Johns on 12-28-2022 Platelet mean volume (Bld) [Entitic vol] 10.3 fL 6.2-12.0 [facility] Determination of erythrocyte mean corpuscular volume (MCV)Ordered By: Dr. Johns on 12-28-2022 MCV (RBC) [Entitic vol] 98.8 fL 80-94 [facility] Hematocrit Auto (Bld) [Volum e fraction]Ordered By: Dr. Johns on 12-28-2022 Hematocrit (Bld) [Volume fraction] 49.8 % 40-54 [facility] Laboratory - Hematology and Cell countsOrdered By: Dr. Johns on 12-28-2022 Erythrocyte distribution width (RBC) [Entitic vol] 45.8 fL 35.1-43.9 [facility] Erythrocyte distribution width (RBC) [Ratio] 12.7 % 11.6-14.6 [facility] Immature granulocytes/100 WBC (Bld) 0.600 % 0.0-0.9 [facility] Comment on above: IG% - Immature Granu locytes (promyelocytes, myelocytes and metamyelocytes) > 1% indicates that a LEFT SHIFT is Present. MCH (RBC) [Entitic mass] 31.9 pg 27.0-32.0 [facility] Nucleated RBC/100 WBC (Bld) [Ratio] 0 % 0-5 [facility] MCHC Auto (RBC) [Mass/Vol]Or dered By: Dr. Johns on 12-28-2022 MCHC (RBC) [Mass/Vol] 32.3 g/dL 32-36 [facility] Platelets bldOrdered By: Dr. Johns on 12-28-2022 Platelets (Bld) [#/Vol] 219 10*3/uL 150-450 [facility] AFB CULT & STAIN [CCL]on AFB CULT & STAIN [CCL] Normal [facility] Comment on above: Result Comment: _AFB CULT & STAIN [CCL]_ GO TO C[employer]I REPORTS AND ATTACHMENTS FOR SCANNED REPORT Performed By: #### [id number] #### [facility],[address] [place] [address] RESULT CRITICAL? NO Normal [facility] Comment on above: Performed By: #### [id number] #### [facility],[address] [place], [place] [id number] FUNGAL CULTURE (NONDERMAL SI TE) [CCL]on 11-02-2022 FUNGAL CULTURE (NONDERMAL SITE) [CCL] Normal [facility] Comment on above: Result Comment: _FUN GAL CULTURE (NON DERMAL SITE) [CCL]_ GO TO CPSI REPORTS AND ATTACHMENTS FOR SCANNED REPORT Performed By: #### [id number] #### [facility],[address] [place] [address] Absolute lymphocyte counton 08-06-2022 Lymphocytes Auto (Unsp spec) [#/Vol] 1.40 10*3/uL 0.83-4.51 [facility] Work Phone: [phone] Basophil percentageon 2021 Basophils/100 WBC (Bld) 0.6 % 0-1 [facility] Work Phone: [phone] Chloride [Moles/Vol] 103 mmol/L 98-107 [facility] Work Phone: [phone] Cholesterol [Mass/Vol] 195 mg/dL <200 [facility] Work Phone: [phone] Comment on above: <200 mg/dL Desirable 200-240 mg/dL Borderline >240 mg/dL High Risk Eosinophils/100 WBC (Bld) 0.8 % 0-5 [facility] Work Phone: [phone] Glucose [Mass/Vol] 104 mg/dL 74-106 [facility] Work Phone: [phone] Comment on above: Fasting Glucose resu lt from 100 to 125 mg/dL suggests IMPAIRED HOMEOSTASIS per A.D.A. criteria. Neutrophils (Bld) [#/Vol] 2.9 10*3/uL 2.0-7.7 [facility] Work Phone: Neutrophils/100 WBC (Bld) 59.5 % 47-70 [facility] Work Phone: [phone] Potassium [Moles/Vol] 4.7 mmol/L 3.5-5.1 [facility] Work Phone: [phone] Sodium [Moles/Vol] 137 mmol/L 136-145 [facility] Work Phone: Testosterone [Mass/Vol] 453.28 ng/dL [facility] Work Phone: Comment on above: CENTRAL 90% REFERENC E RANGES MALE AGE <50 197.44 - 669.58 ng/dL MALE AGE > or = 50 187.72 - 684.19 ng/dL FEMALE AGE <50 8.38 - 35.01 ng/dL FEMALE AGE > or = 50 <7.00 - 35.92 ng/dL Effective as of 05/30/21 Triglyceride [Mass/Vol] 124 mg/dL <199 [facility] Work Phone: Comment on above: The drugs N-Acetylcy steine and Metamizole may falsely depress this assay.Serum Triglycerides Reference Interval Normal <150 mg/dL Borderline high 150 - 199 mg/dL High 200 - 499 mg/dL Very High > or = 500 mg/dL WBC (Bld) [#/Vol] 4.9 10*3/uL 4.4-11.0 [facility] Work Phone: Blood erythrocytes count (nu mber/volume)on 08-06-2022 RBC (Bld) [#/Vol] 5.03 10*6/uL 4.6-6.2 [facility] Work Phone: Blood hemoglobin measurement (mass/volume)on 08-06-2022 Hemoglobin (Bld) [Mass/Vol] 16.0 g/dL 13.0-16. 5 [facility] Work Phone: Blood lymphocytes/100 leukoc yteson 08-06-2022 Lymphocytes/100 WBC (Bld) 28.8 % 19-41 [facility] Work Phone: [phone] Blood monocytes/100 leukocyt eson 08-06-2022 Monocytes/100 WBC (Bld) 9.9 % 0-10 [facility] Work Phone: Blood platelet mean volumeon 08-06-2022 Platelet mean volume (Bld) [Entitic vol] 10.7 fL 6.2-12.0 [facility] Work Phone: Determination of erythrocyte mean corpuscular volume (MCV)on 08-06-2022 MCV (RBC) [Entitic vol] 97.2 fL 80-94 [facility] Work Phone: Hematocrit Auto (Bld) [Volum e fraction]on 08-06-2022 Hematocrit (Bld) [Volume fraction] 48.9 % 40-54 [facility] Work Phone: Laboratory - Chemistry and C hemistry - challengeon 08-06-2022 CO2 [Moles/Vol] 29.0 mmol/L 21.0-32.0 [facility] Work Phone: Urea nitrogen/Creatinine [Mass ratio] 27.5 mg/mg 10-20 [facility] Work Phone: Laboratory - Hematology and Cell countson 08-06-2022 Erythrocyte distribution width (RBC) [Entitic vol] 44.4 fL 35.1-43.9 [facility] Work Phone: Erythrocyte distribution width (RBC) [Ratio] 12.4 % 11.6-14.6 [facility] Work Phone: Immature granulocytes/100 WBC (Bld) 0.400 % 0.0-0.9 [facility] Work Phone: Comment on above: IG% - Immature Granu locytes (promyelocytes, myelocytes and metamyelocytes) > 1% indicates that a LEFT SHIFT is Present. MCH (RBC) [Entitic mass] 31.8 pg 27.0-32.0 [facility] Work Phone: Nucleated RBC/100 WBC (Bld) [Ratio] 0 % 0-5 [facility] Work Phone: MCHC Auto (RBC) [Mass/Vol]on 08-06-2022 MCHC (RBC) [Mass/Vol] 32.7 g/dL 32-36 [facility] Work Phone: No Panel Informationon 08-06 Estimated GFR (MDRD) Amer 101 mL/min >60 [facility] Work Phone: Comment on above: GFR Calc Estimated GFR (MDRD) Non-Af Amer 84 mL/min >60 [facility] Work Phone: Comment on above: Non- GFR Calc Prostate Specific Antigen Screen 0.42 ng/mL 0.00-4.00 [facility] Work Phone: Comment on above: This test was perfor med using the TPSA assay method for theViewdle chemistry system. Values obtained with differentassay methods cannot be used interchangably.When changing PSA assays in the course of monitoring apatient, additional sequential testing should be carriedout to confirm baseline values. Platelets bldon 08-06-2022 Platelets (Bld) [#/Vol] 185 10*3/uL 150-450 [facility] Work Phone: Serum or plasma calcium rafa urement (mass/volume)on 08-06-2022 Calcium [Mass/Vol] 9.7 mg/dL 8.5-10.1 [facility] Work Phone: Serum or plasma cholesterol in HDL measurement (mass/volume)on 08-06-2022 Cholesterol in HDL [Mass/Vol] 46 mg/dL >40 [facility] Work Phone: Comment on above: The drugs N-Acetylcy steine and Metamizole may falsely depress this assay. Reference Range HDL <40 mg/dL Low HDL Cholesterol HDL >or= 60 mg/dL High HDL Cholesterol Serum or plasma cholesterol in VLDL measurement (mass/volume)on 08-06-2022 Cholesterol in VLDL [Mass/Vol] 25 mg/dL 5-40 [facility] Work Phone: Serum or plasma creatinine m easurement (mass/volume)on 08-06-2022 Creatinine [Mass/Vol] 1.02 mg/dL 0.70-1.30 [facility] Work Phone: Comment on above: The validity of the calculated GFR & GFRAA in patients over 70 years has not been determined. Clinical correlation is essential. Serum or plasma low density lipoprotein (LDL) cholesterol measurement (mass/volume)on 08-06-2022 Cholesterol in LDL [Mass/Vol] 124 mg/dL 0-130 [facility] Work Phone: Serum or plasma urea nitroge n measurement (mass/volume)on 08-06-2022 Urea nitrogen [Mass/Vol] 28 mg/dL 7-18 [facility] Work Phone: Thin prep Papanicolaou smear with manual screeningon 08-06-2022 Thin prep Papanicolaou smear with manual screening 5 5-15 [facility] Work Phone: Absolute lymphocyte counton 06-18-2022 Lymphocytes Auto (Unsp spec) [#/Vol] 1.74 10*3/uL 0.83-4.51 [facility] Work Phone: Basophil percentageon 2021 Basophils/100 WBC (Bld) 0.4 % 0-1 [facility] Work Phone: Chloride [Moles/Vol] 107 mmol/L 98-107 [facility] Work Phone: Eosinophils/100 WBC (Bld) 1.2 % 0-5 [facility] Work Phone: Glucose [Mass/Vol] 103 mg/dL 74-106 [facility] Work Phone: [phone] Comment on above: Fasting Glucose resu lt from 100 to 125 mg/dL suggests IMPAIRED HOMEOSTASIS per A.D.A. criteria. Neutrophils (Bld) [#/Vol] 2.5 10*3/uL 2.0-7.7 [facility] Work Phone: Neutrophils/100 WBC (Bld) 51.4 % 47-70 [facility] Work Phone: Potassium [Moles/Vol] 4.0 mmol/L 3.5-5.1 [facility] Work Phone: Sodium [Moles/Vol] 138 mmol/L 136-145 [facility] Work Phone: WBC (Bld) [#/Vol] 4.9 10*3/uL 4.4-11.0 [facility] Work Phone: Blood erythrocytes count (nu mber/volume)on 06-18-2022 RBC (Bld) [#/Vol] 4.75 10*6/uL 4.6-6.2 [facility] Work Phone: [phone] Blood hemoglobin measurement (mass/volume)on 06-18-2022 Hemoglobin (Bld) [Mass/Vol] 15.4 g/dL 13.0-16. 5 [facility] Work Phone: Blood lymphocytes/100 leukoc yteson 06-18-2022 Lymphocytes/100 WBC (Bld) 35.9 % 19-41 [facility] Work Phone: Blood monocytes/100 leukocyt eson 06-18-2022 Monocytes/100 WBC (Bld) 10.9 % 0-10 [facility] Work Phone: [phone] Blood platelet mean volumeon 06-18-2022 Platelet mean volume (Bld) [Entitic vol] 11.3 fL 6.2-12.0 [facility] Work Phone: Determination of erythrocyte mean corpuscular volume (MCV)on 06-18-2022 MCV (RBC) [Entitic vol] 96.2 fL 80-94 [facility] Work Phone: [phone] Hematocrit Auto (Bld) [Volum e fraction]on 06-18-2022 Hematocrit (Bld) [Volume fraction] 45.7 % 40-54 [facility] Work Phone: Laboratory - Chemistry and C hemistry - challengeon 06-18-2022 CO2 [Moles/Vol] 27.0 mmol/L 21.0-32.0 [facility] Work Phone: [phone] Urea nitrogen/Creatinine [Mass ratio] 36.0 mg/mg 10-20 [facility] Work Phone: [phone] Laboratory - Hematology and Cell countson 06-18-2022 Erythrocyte distribution width (RBC) [Entitic vol] 43.6 fL 35.1-43.9 [facility] Work Phone: [phone] Erythrocyte distribution width (RBC) [Ratio] 12.2 % 11.6-14.6 [facility] Work Phone: Immature granulocytes/100 WBC (Bld) 0.200 % 0.0-0.9 [facility] Work Phone: Comment on above: IG% - Immature Granu locytes (promyelocytes, myelocytes and metamyelocytes) > 1% indicates that a LEFT SHIFT is Present. MCH (RBC) [Entitic mass] 32.4 pg 27.0-32.0 [facility] Work Phone: Nucleated RBC/100 WBC (Bld) [Ratio] 0 % 0-5 [facility] Work Phone: MCHC Auto (RBC) [Mass/Vol]on 06-18-2022 MCHC (RBC) [Mass/Vol] 33.7 g/dL 32-36 [facility] Work Phone: No Panel Informationon 06-18 Estimated GFR (MDRD) Amer 107 mL/min >60 [facility] Work Phone: Comment on above: GFR Calc Estimated GFR (MDRD) Non-Af Amer 88 mL/min >60 [facility] Work Phone: Comment on above: Non- GFR Calc Platelets bldon 06-18-2022 Platelets (Bld) [#/Vol] 183 10*3/uL 150-450 [facility] Work Phone: Serum or plasma calcium rafa urement (mass/volume)on 06-18-2022 Calcium [Mass/Vol] 9.0 mg/dL 8.5-10.1 [facility] Work Phone: Serum or plasma creatinine m easurement (mass/volume)on 06-18-2022 Creatinine [Mass/Vol] 0.97 mg/dL 0.70-1.30 [facility] Work Phone: Comment on above: The validity of the calculated GFR & GFRAA in patients over 70 years has not been determined. Clinical correlation is essential. Serum or plasma urea nitroge n measurement (mass/volume)on 06-18-2022 Urea nitrogen [Mass/Vol] 35 mg/dL 7-18 [facility] Work Phone: Thin prep Papanicolaou smear with manual screeningon 06-18-2022 Thin prep Papanicolaou smear with manual screening 4 5-15 [facility] Work Phone: Basophil percentageon 2021 Chloride [Moles/Vol] 103 mmol/L 98-107 [facility] Work Phone: Glucose [Mass/Vol] 82 mg/dL 74-106 [facility] Work Phone: Potassium [Moles/Vol] 4.5 mmol/L 3.5-5.1 [facility] Work Phone: Sodium [Moles/Vol] 139 mmol/L 136-145 [facility] Work Phone: Laboratory - Chemistry and C hemistry - challengeon 02-28-2022 CO2 [Moles/Vol] 30.0 mmol/L 21.0-32.0 [facility] Work Phone: Urea nitrogen/Creatinine [Mass ratio] 20.9 mg/mg 10-20 [facility] Work Phone: No Panel Informationon 02-28 Estimated GFR (MDRD) Amer 93 mL/min >60 [facility] Work Phone: Comment on above: GFR Calc Estimated GFR (MDRD) Non-Af Amer 77 mL/min >60 [facility] Work Phone: Comment on above: Non- GFR Calc Serum or plasma calcium rafa urement (mass/volume)on 02-28-2022 Calcium [Mass/Vol] 8.7 mg/dL 8.5-10.1 [facility] Work Phone: Serum or plasma creatinine m easurement (mass/volume)on 02-28-2022 Creatinine [Mass/Vol] 1.10 mg/dL 0.70-1.30 [facility] Work Phone: Comment on above: The validity of the calculated GFR & GFRAA in patients over 70 years has not been determined. Clinical correlation is essential. Serum or plasma urea nitroge n measurement (mass/volume)on 02-28-2022 Urea nitrogen [Mass/Vol] 23 mg/dL 7-18 [facility] Work Phone: Thin prep Papanicolaou smear with manual screeningon 02-28-2022 Thin prep Papanicolaou smear with manual screening 6 5-15 [facility] Work Phone: Basophil percentageon 2021 Cholesterol [Mass/Vol] 166 mg/dL <200 [facility] Work Phone: Comment on above: <200 mg/dL Desirable 200-240 mg/dL Borderline >240 mg/dL High Risk Testosterone [Mass/Vol] 743.26 ng/dL [facility] Work Phone: Comment on above: CENTRAL 90% REFERENC E RANGES MALE AGE <50 197.44 - 669.58 ng/dL MALE AGE > or = 50 187.72 - 684.19 ng/dL FEMALE AGE <50 8.38 - 35.01 ng/dL FEMALE AGE > or = 50 <7.00 - 35.92 ng/dL Effective as of 05/30/21 Triglyceride [Mass/Vol] 86 mg/dL [facility] Work Phone: Comment on above: The drugs N-Acetylcy steine and Metamizole may falsely depress this assay.Serum Triglycerides Reference Interval Normal <150 mg/dL Borderline high 150 - 199 mg/dL High 200 - 499 mg/dL Very High > or = 500 mg/dL Serum or plasma cholesterol in HDL measurement (mass/volume)on 01-10-2022 Cholesterol in HDL [Mass/Vol] 44 mg/dL [facility] Work Phone: Comment on above: The drugs N-Acetylcy steine and Metamizole may falsely depress this assay. Reference Range HDL <40 mg/dL Low HDL Cholesterol HDL >or= 60 mg/dL High HDL Cholesterol Serum or plasma cholesterol in VLDL measurement (mass/volume)on 01-10-2022 Cholesterol in VLDL [Mass/Vol] 17 mg/dL 5-40 [facility] Work Phone: Serum or plasma low density lipoprotein (LDL) cholesterol measurement (mass/volume)on 01-10-2022 Cholesterol in LDL [Mass/Vol] 105 mg/dL 0-130 [facility] Work Phone: CNOVon 12-13-2021 CNOV Office Visit (UCWSTR ) KULWANT VALLES ([id number]) 1975 M Date Time Provider Department 12/13/21 6:30 PM KASI FRIED [facility] During your visit today, we recorded the [...] no acute distress. Accompanied by his . [id number]. Wrist: Left. No erythema, edema, ecchymosis, or deformity. Flexion, extension, radial and ulnar deviation, supination and pronation non-painful. Pain with ROM of the thumb at the MCP and USP. Tender 1st metatarsal, most tender at the USP joint. Tender tendons over the distal radius. Other fingers and metacarpals non-tender. ASSESSMENT/PLAN: 1. Acute wrist pain, left - ICD9: 719.43, ICD10: M25.532 - XR WRIST INJURY 4V PA/LAT/OBL/SCAPH LEFT 1st USP joint Osteoarthrosis. Incidental distal ulnar cyst/erosion which [...] [M25.532] Order(s):XR WRIST INJURY 4V PA/LAT/OBL/SCAPH LEFT [[id number]] Order #: [id number] FUTURE Prescriptions as of 12/13/2021 - sertraline [...] Status:Closed by KASI FRIED on 12/13/21 Normal [facility] XR WRIST 4V PA/LAT/OBL/SCAPH LTon 12-13-2021 [...] cyst formation involving the distal ulna. Osteoarthrosis. [employer]: KARLIE Transcribe Date/Time: Dec 13 2021 7:52P Dictated by : ELANA GOMEZ MD This examination was interpreted and the report reviewed and electronically signed by: ELANA GOMEZ MD on Dec 13 2021 7:53PM EST [id number] Normal [facility] XR Wrist - left 4 Viewson IMPRESSION: Erosions related to an inflammatory arthropathy versus degenerative cyst formation involving the distal ulna. Osteoarthrosis. [employer]: KARLIE Transcribe Date/Time: Dec 13 2021 7:52P Dictated by : ELANA GOMEZ MD This examination was interpreted and the report reviewed and electronically signed by: ELANA GOMEZ MD on Dec 13 2021 7:53PM [facility] DIVISION OF RADIOLOGY * * *Final Report* [...] tissue abnormality identified. DIVISION OF RADIOLOGY Provider, Wu Villanueva [facility] - 12/13/2021 * * *Final Report* [...] cyst formation involving the distal ulna. Osteoarthrosis. [employer]: PSCB Transcribe Date/Time: Dec 13 2021 7:52P Dictated by : ELANA GOMEZ MD This examination was interpreted and the report reviewed and electronically signed by: ELANA GOMEZ MD on Dec 13 2021 7:53PM EST [facility] Radiology Study observation (narrative) [facility] XR Wrist - left 4 ViewsOrder ed By: Ccf Provider on 12-13-2021 [facility] Vital Signs Date Time Vital Sign Value Performing Clinician Faci lity 12-18-2023 06:44-0500 Body height 177.[address] [facility] 12-18-2023 06:44-0500 Body weight 97.[address] [facility] 12-17-2023 07:37-0500 Body height 177.[address] [facility] 12-17-2023 07:37-0500 Body weight 97.[address] [facility] 06-28-2022 10:15-0400 Body temperature 97.8 [degF] [facility] Work Phone: 06-28-2022 10:15-0400 Diastolic blood pressure 61 mm[Hg] [facility] Work Phone: 06-28-2022 10:15-0400 Heart rate 69 /min [facility] Work Phone: 06-28-2022 10:15-0400 Respiratory rate 16 /min [facility] Work Phone: 06-28-2022 10:15-0400 SaO2% (BldA) [Mass fraction] 98 % [facility] Work Phone: 06-28-2022 10:15-0400 Systolic blood pressure 114 mm[Hg] [facility] Work Phone: 06-28-2022 06:25-0400 Body height 177.[address] [facility] Work Phone: 06-28-2022 06:25-0400 Body mass index (BMI) [Ratio] 27.5 kg/m2 [facility] Work Phone: 06-28-2022 06:25-0400 Body weight [address] [facility] Work Phone: Encounters Encounter Date Encounter Type Care Provider Facility Start: 07-10-2025 ambulatory Jm Joseph Facility:[facility] Start: 04-30-2025 End: 04-30-[address] Jm Joseph MD Work Phone: -Cardiovascular Services Start: 04-30-2025 End: 04-30-2025 Patient encounter procedure Lluvia Villarreal WEB DEVELOPMENT DIRECTOR-C -Cardiovascular Services Work Phone: Start: 04-30-2025 End: 04-30-2025 ambulatory Jm Joseph Facility:[facility] Start: 03-24-2025 Encounter for genera l adult medical examination without abnormal findings Jm [facility] Start: 03-20-2025 End: 03-20-[address] Jm Joseph MD -Laboratory Work Phone: Start: 03-20-2025 End: 03-20-[address] Jm Joseph MD Work Phone: [facility] Work Phone: Start: 01-21-2025 Encounter for preprocedural laboratory examination Clemente [facility] Start: 01-04-2025 End: 01-04-[address] Jm Joseph MD Work Phone: [facility] Work Phone: Start: 01-04-2025 End: 01-04-[address] Clemente Zhou MD -[facility] Work Phone: Start: 01-04-2025 End: 01-04-2025 ambulatory Jm Joseph Facility:[facility] Start: 12-03-2024 End: 12-03-[address] Jm Joseph MD -Laboratory, [facility] Start: 12-03-2024 End: 12-03-2024 ambulatory Jm Joseph Facility:[facility] Start: 11-06-2024 End: 11-06-[address] Clemente Zhou MD -Laboratory Work Phone: Start: 11-06-2024 End: 11-06-2024 ambulatory Clemente Zhou Facility:[facility] Start: 12-17-2023 End: 12-17-2023 ambulatory [facility] Work Phone: Start: 12-17-2023 End: 12-17-2023 Discharged Recurring [facility]-Occupational Therapy Work Phone: Start: 12-17-2023 [facility] Start: 12-13-2023 End: 12-13-2023 ambulatory [facility] Work Phone: Start: 12-13-2023 End: 12-13-2023 [facility] Start: 07-30-2023 End: 07-30-2023 ambulatory [facility] Work Phone: Start: 07-30-2023 End: 07-30-2023 Patient encounter procedure [facility] Work Phone: Start: 01-29-2023 End: 01-29-[address] Jm Joseph Work Phone: [facility] Work Phone: Start: 01-29-2023 End: 01-29-[address] Jm Joseph Work Phone: [facility] Start: 01-03-2023 End: 01-03-[address] Jm Joseph Work Phone: [facility] Work Phone: Start: 01-03-2023 End: 01-03-[address] [facility] Start: 01-03-[address] [facility] Start: 12-28-2022 End: 12-28-[address] Jm Joseph Work Phone: [facility] Work Phone: Start: 12-28-2022 End: 12-28-[address] Jm Joseph Work Phone: [facility] Start: 12-04-[address] Jm Joseph Work Phone: [facility]-Occupational Therapy Start: 11-26-2022 Non-patient / Non-visit Dr. Lamin Joseph Work Phone: [facility] Start: 11-26-2022 End: 11-26-[address] Jm Joseph Work Phone: [facility] Work Phone: Start: 11-26-2022 End: 11-26-[address] Jm Joseph Work Phone: [facility]-Pulmonary Services/Neurology Start: 10-31-2022 End: 10-31-2022 ambulatory [facility] Start: 08-06-2022 End: 08-06-[address] Jm Joseph Work Phone: [facility] Work Phone: Start: 08-06-2022 End: 08-06-[address] Jm Joseph Work Phone: [facility] Start: 08-06-[address] Jm Joseph Work Phone: [facility]-Occupational Therapy Start: 06-28-2022 End: 06-28-2022 Admission to same day surgery center [facility]-Surgical Day Care Start: 06-28-2022 End: 06-28-2022 ambulatory [facility] Work Phone: Start: 06-18-2022 End: 06-28-2022 Non-patient / Non-visit Dr. Jm Joseph Work Phone: [facility] Start: 02-28-2022 End: 02-28-2022 Patient encounter procedure [facility] Start: 01-10-2022 End: 01-10-2022 Patient encounter procedure [facility] Start: 12-27-2021 Telephone encounter Mateusz TateNh rosy Valenzuela Work Phone: Radiology Comment on above: disk request Start: 12-13-2021 End: 12-13-2021 Subsequent hospital visit by physician Jorge Luis [facility] Work Phone: Radiology Comment on above: Acute [...] med using the TPSA assay method for theViewdle chemistry system. Values obtained with differentassay methods cannot be used interchangably.When changing PSA assays in the course of monitoring apatient, additional sequential testing should be carriedout to confirm baseline values. Start: 12-03-2024 Measurement of renal function Dr. Jm Joseph MD Work Phone: Comment on above: GFR Calc Start: 11-06-2024 X-ray of cervical spine Dr. Jm Joseph MD Work Phone: Start: 11-06-2024 X-ray of knee, four or more views Dr. Jm Joseph MD Work Phone: Start: 06-28-2022 Arthroplasty of hand Start: 06-28-2022 Fluoroscopic guidance Start: 06-28-2022 Plain x-ray of hand Start: 12-13-2021 Radex wrist complete minimum 3 views Kasi Fried MD Work Phone: Plan of Treatment Date Care Activity Detail Author Start: 04-09-2028 [facility]album[facility] Start: 07-05-2024 Covid-19 Vaccine ( season) Covid-19 Vaccine () [facility] Start: 07-05-2024 Influenza [facility] Start: 06-28-2022 Anes arthrs/endscpy dstl radius ulna/wrist/hand ANESTH LOWER ARM SURGERY [facility] Work Phone: Start: 06-28-2022 Arthrp interpos intercarpal/metacarpal joints REPAIR WRIST JOINTS [facility] Work Phone: Start: 06-28-2022 Tdn trnsplj/tr flxr/xtnsr f/arm&/wrst 1 ea tdn TRANSPLANT FOREARM TENDON [facility] Work Phone: Start: 06-28-2022 Catheterization of vein [facility] Work Phone: Start: 06-28-2022 Elevation of affected extremity [facility] Work Phone: Start: 06-28-2022 Following clinical pathway protocol [facility] Work Phone: Start: 06-28-2022 Patient discharge [facility] Work Phone: Start: 06-28-2022 Procedure discontinued [facility] Work Phone: Start: 06-28-2022 Taking patient vital signs [facility] Work Phone: Start: 06-28-2022 Vital signs measurements [facility] Work Phone: Start: 06-28-2022 [facility] Work Phone: Start: 06-28-2022 Medication education [facility] Work Phone: Start: 2021 COLOGUARD (FIT-DNA) COLOGUARD (FIT-DNA) [facility] Start: 2021 Colonoscopy COLONOSCOPY [facility] Start: 2021 COLORECTAL CANCER SCREENING COLORECTAL CANCER SCREENING [facility] Start: [address] COLONOGRAPHY [facility] Start: 2021 DIABETES SCREEN DIABETES SCREEN [facility] Start: 2021 Diabetes Screening Diabetes Screening [facility] Start: 2021 FECAL OCCULT BLOOD FECAL OCCULT BLOOD [facility] Start: 2021 Screening for malignant neoplasm of colon [facility] Start: 2021 SIGMOIDOSCOPY SIGMOIDOSCOPY [facility] Start: 2011 Lipid panel Lipid Screening [facility] Start: 2011 LIPID SCREEN LIPID SCREEN [facility] Start: 1995 Hepatitis B Vaccine (1 of 3 - 19+ 3-dose series) Hepatitis B Vaccine (1 of 3 - 19+ 3-dose series) [facility] Start: 1994 Anxiety Screening Anxiety Screening [facility] Start: 1994 Depression Screening Depression Screening [facility] Start: 1994 HEPATITIS C SCREENING HEPATITIS C SCREENING [facility] Start: 1994 Hepatitis C screening Hepatitis C Screening [facility] Start: 1994 HIV SCREENING HIV SCREENING [facility] Start: 1994 HIV screening HIV Screening [facility] Start: 1988 Adult depression screening assessment DEPRESSION SCREENING [facility] Start: 1981 COVID-19 VACCINE (1) COVID-19 VACCINE (1) [facility] Patient referral [facility] Work Phone: Serum testosterone measurement [facility] Testosterone Free [Mass/volume] in Serum or Plasma [facility] Testosterone measurement [facility] Immunizations Immunization Date Immunization Notes Care Provider Emerson hdez 08-24-2021 influenza virus vaccine, unspecified formulation [facility] [place] Work Phone: [facility] 04-09-2018 tetanus toxoid, redu susan diphtheria toxoid, and acellular pertussis vaccine, adsorbed Mateusz Valenzuela Work Phone: [facility] Work Phone: 01-02-2015 tetanus toxoid, redu susan diphtheria toxoid, and acellular pertussis vaccine, adsorbed Mateusz Valenzuela Work Phone: [facility] Payers Date Payer Category Payer Private Health Insurance [id number] 2024 Private Health Insurance [id number] 2024 Self-pay [id number] 2020 Unknown MMO MMO [employer] [id number] 2020-Present [phone] [address] [place] [address] PPO [id number] 2020 Unknown MMO MMO [employer] PPO [id number] 2020-Present [phone] [address] [place] [address] PPO [id number] 1975 Unknown [id number] Unknown [id number] Unknown [id number] 63 Unknown [id number] 63 Unknown [id number] 62 Unknown [id number] 63 Unknown [id number] 63 Unknown [id number] 63 Social History Date Type Detail Facility Start: 09-08-2013 End: 06-12-2022 Tobacco smoking status LAIS Unknown if ever smoked [facility] Start: 1975 Sex Assigned At Male [facility] Start: 09-23-2017 [facility] Work Phone: Start: 09-23-2017 Tobacco use and exposure User of smokeless tobacco [facility] Work Phone: History of tobacco use Chews Tobacco [facility] Work Phone: Start: 12-13-2021 Alcohol intake Current drinke r of alcohol (finding) [facility] Start: 1975 Sex Assigned At Not on file [facility] History of tobacco use Cigarette Smoker C [facility] Start: 10-12-2020 End: 12-13-2021 History of Social function [facility] Start: 10-12-2020 End: 12-13-2021 Tobacco use panel [facility] National Score (1-100), lower number is lower risk Not on file [facility] Start: 05-11-2024 [facility] Start: 01-14-2025 Sex Male (finding) [facility] Medical Equipment Procedure Code Equipment Code Equipment Origin al Text Equipment Identifier Dates Arthroplasty, CMC joint ([id number]) Orthopaedic bone screw, non-bioabsorbable, sterile [id number] FDA Start: 06-28-2022 Syringe With Nee dle 1 mL 25 gauge x 1 syringe Start: 05-11-2024 Syringe With Nee dle 1 mL 25 gauge x 1 syringe Start: 05-11-2024 Syringe With Nee dle 1 mL 25 gauge x 1 syringe Start: 05-11-2024 Goals Date Patient Goal Desired Activity /State Mental Status Date Assessment Result Facility 06-28-2022 Cognitive function Voice/Name [facility] Work Phone: Clinical Notes 12-13-2021 to 01-04-2025 Note Date & Type Note Facility 01-04-2025 Radiology Diagnostic study note [facility] Imaging Services [address] [place] [address] Orbits for Foreign Body MR#: [id number] Acct: [id number] Name: KULWANT VALLES Rep #: [id number] : 1975 M 49 From: Bob Boggs MD PCP: Dr. Jm Joseph MD Status: REG MARZENA Study:Orbits for Foreign Body Date of Exam: 01/04/25 Exam# [id number] Ordering Dr: Adams Zhou MD PROCEDURE: ORBITS FOR FOREIGN BODY REASON FOR EXAM: MRI screening examination. TECHNIQUE: 2 view(s) of the orbits. COMPARISON: None. FINDINGS: No evidence of displaced orbit fracture. No radiopaque foreign body. Visualized paranasal sinuses appear clear. RAD/Orbits for Foreign Body IMPRESSION: NEGATIVE ORBIT X-RAYS Reading Location: [id number] CC: Dr. Clemente Zhou MD; Dr. Jm Joseph MD ~ [employer]: Signed [facility] 12-18-2023 Discharge summary Note Date/Time December 18, 2023 7:03am [facility] Occupational Therapy [facility] [address] [place] [address] [place] [address] / REHABILITATION SERVICES DISCHARGE SUMMARY MR#: [id number] Acct: [id number] Name: KULWANT VALLES Rep #: [id number] : 1975 48 From: Thao MUSA CHT Referring Dr.: Dr. Danie Levin MD Status: REG RCR Eval Date: Discharge Date: FCE D/C Summary Discharge text: KULWANT VALLES was seen for a one time visit for an FCE on 12/17/23 and is discharged. <Electronically signed by Thao MUSA CHT> 12/18/23 0702 CC: Dr. Danie Levin MD; Dr. Jm Joseph MD ~ MK Signed [facility] Work Phone: 1(681) 817-533402-13-2024 Discharge summary Author Thao Williamson [facility] December 17, 2023 9:41am Note Date/Time December 17, 2023 9:41am [facility] Occup[place] [id number] [facility]. [address] [place] [address] / REHABILITATION SERVICES DISCHARGE SUMMARY MR#: [id number] Acct: [id number] Name: KULWANT VALLES Rep #: [id number] : 1975 48 From: Thao Williamson OTR/Nidia, CHT Referring Dr.: Dr. Elba Dang MD [...] Improvement % Improvement: 75 Objective Objective/Function: right falafel cart cook strength 105# left 65# increase 45# right lateral pinch 28# left 6# right tripod 30# left 4# right biceps 57# left 40.2# initial 32# right triceps 38.5 increase from 37# left 40.5# 36# initial 23# right shoulder flex 35 increase from 29## left 37# initial 22# pt has demo a increase in BUE UE strength- pts falafel cart cook strength is maintaining close to 50% less than unaffected hand. Pt feels this will interfere with his IND at his job. Goals Patient Goals: Use Hand/Wrist/Arm Normally Again and Be More Independent in ADLS Goal:100% adherence to protocol: Yes Goal Progress: Goal Met Goal:Daily scar massage when approriate: Yes Goal Progress: Goal Met Goal:ROM equal to unaffected hand: Yes Goal Progress: Goal Met Goal:Bean Viner/Pinch strength at least 75% of unaffected hand: Yes Goal Progress: pt at 45# about 50% falafel cart cook Goal:No pain with affected hand use: Yes Goal Progress: constant 2-3 Goal:Full use of affected hand in daily [...] with his overall UB strength however left falafel cart cook strength maintained at 35-45# of falafel cart cook strength about 50% less than unaffected side- pt will have FCE to determine RTW. pt has met OT goals and D/c from OT services. d/c sentence: If there are questions or concerns regarding this patient's occupational therapy, please fell free to call me at [phone]. Thank you for the referral of this patient. Sincerely, KIKO Sidhu/Nidia, CHT <Electronically signed by Thao HOOVER/NAEEM JacobT> 12/17/23 0941 CC: Dr. Elba Dang MD; Dr. Jm Joseph MD ~ MK Signed [facility] Work Phone: 1(476) 974-428101-23-2023 Procedure [facility] 12-27-2021 Miscellaneous Notes* Telephone Encounter - CHASTITY Fagan - 12/27/2021 4:16 PM EST CD READY FOR CLINICAL TRIAL COORDINATOR AT [facility] * Telephone Encounter - Jovanna March - 12/27/2021 8:54 AM EST Patient requesting x-rays of left hand copied to a disk. [facility] NoteHNO ID: [id number] Author: Sabra Walker, RT(R) Service: ? Author Type: Peoplesoft Analyst Type: Progress Notes Filed: 12/13/2021 7:45 PM [...] BY: RT Nathalie(R) December 13, 2021 7:34 [facility]02-09-2022 NoteHNO ID: [id number] Author: Kasi Fried MD Service: ? Author [...] no acute distress. Accompanied by his . Bnywn-qhmz-jgbubuzg. Wrist: Left. No erythema, edema, ecchymosis, or deformity. Flexion, extension, radial and ulnar deviation, supination and pronation non-painful. Pain with ROM of the thumb at the MCP and USP. Tender 1st metatarsal, most tender at the USP joint. Tender tendons over the distal radius. Other fingers and metacarpals non-tender. ASSESSMENT/PLAN: 1. Acute wrist pain, left - ICD9: 719.43, ICD10: M25.532 - XR WRIST INJURY 4V PA/LAT/OBL/SCAPH LEFT 1st USP joint Osteoarthrosis. Incidental distal ulnar cyst/erosion which is not symptomatic. He will continue aleve as needed for pain. Provided thumb spica cockup splint from stock. Kasi Fried, [facility]onEvaluation noteNo assessment information availableWSelect Medical [facility] Work Phone: Evaluation note* Diagnosis Acute wrist pain, left [facility] Additional Instructions Follow preprinted instructions from your surgeons office. Implant Used?: Yes ATHREXWSelect [facility] Special[facility] Work Phone: Reqnwi for referral (narrative)* Diagnostic Procedure Only (Urgent) - Closed Specialty Diagnoses / Procedures Referred By Contac t Referred To Contact XR IMAGING Diagnoses Acute wrist pain, left Procedures XR WRIST INJURY 4V PA/LAT/OBL/SCAPH LEFT RADEX WRIST COMPLETE MINIMUM 3 VIEWS Kasi Fried MD [address] [place] [address] [place] [address] Referral ID Status Reason Start Date Expiration Date V isits Requested Visits Authorized [id number] Closed Auto-Generate d Referral 12/13/2021 01/12/2023 1 1 [facility] for referral (narrative)No reason for referral information availableWSelect Medical [facility] Work Phone: Reason for visit Narrative* Diagnostic Procedure Only (Urgent) - Closed Specialty Diagnoses / Procedures Referred By Contac t Referred To Contact XR IMAGING Diagnoses Acute wrist pain, left Procedures XR WRIST INJURY 4V PA/LAT/OBL/SCAPH LEFT RADEX WRIST COMPLETE MINIMUM 3 VIEWS Kasi Fried MD [address] [facility] [place] [place] [address] [place] [address] Referral ID Status Reason Start Date Expiration Date V isits Requested Visits Authorized [id number] Closed Auto-Generate d Referral 12/13/2021 01/12/2023 1 1 [facility] Summary Purpose Family History No Family History Records FoundNo Family History Records FoundNo Family History Records Found Advance Directives No Advanced Directives Records Found Advance Directive Response Recorded Date/ Time Living Will No June 12, 2022 9:59am Power of Environmental Engineering Intern No June 12 9:59am Advance Directive Response Recorded Date/ Time Living Will No June 12, 2022 8:59am Power of Environmental Engineering Intern No June 12 8:59am Chief Complaint and [...] section and content) DATE CREATED AUTHOR 01/24/2022 [facility] DATE CREATED AUTHOR AUTHOR'S ORGANIZ ATION 11/02/2022 [facility] DATE CREATED AUTHOR AUTHOR'S ORGANIZ ATION 07/12/[address] [facility] Source Comments (unrecognize d section and content) In the event this informatio n is protected by the Federal Confidentiality of Alcohol and Drug Abuse Patient Records regulations: The Federal rules restrict any use of the information to criminally investigate or prosecute any alcohol or drug abuse patient.[facility] CenterIn the event this information is protected by the Federal Confidentiality of Alcohol and Drug Abuse Patient Records regulations: The Federal rules restrict any use of the information to criminally investigate or prosecute any alcohol or drug abuse patient.[facility] Reason for Visit (unrecogniz ed section and [...] Active Member Role Status Dates Jm Joseph OLS Family Provider Active Dr. Jm Joseph MD [...] Status: Inactive Member Role Status Dates Dr. mJ Joseph MD Primary Care Provider Active Start: [...] 2025 End: April 30, 2025 Lluvia Villarreal NP WEB DEVELOPMENT DIRECTOR-C Attending Provider Active S tart: April 30, 2025 End: April 30, 2025 Lluvia Villarreal NP WEB DEVELOPMENT DIRECTOR-C Referring Provider Active S tart: April 30, 2025 End: April 30, 2025 Team Status: Active Member Role/Relationship Status Dates Dr. Oz Jackson MD Attending Provider Active Start: April 30, 2025 Lluvia Villarreal NP WEB DEVELOPMENT DIRECTOR-C Referring Provider Active S tart: April 30, [...] BE BASED ON THE PRIMARY CLINICAL RECORDS. [employer] [facility]. provides no warranty or guarantee of the accuracy or completeness of information in this document.
== END | disposition home or self-care (01) ==
LOC: LAB 06:12
PROVIDERS: PCP Family Medicine; Referring Provider Family Medicine; Visit Provider Family Medicine
DX: R73.9 Hyperglycemia, unspecified (principal); E78.5 Hyperlipidemia, unspecified
CPT/HCPCS: 36415; 83036